=== PATIENT | female | born 1995 | race Caucasian/White ===

== ENCOUNTER 2017-09-12 12:23 | Emergency (ER) | payer BC, OTHER ==
[2017-09-12] MEDS ORDERED: NORMAL SALINE 1000 ML 2,000 ML IV ONE (13:13)
[2017-09-12] MEDS ORDERED: ONDANSETRON HCL INJ/PF 4 MG/2 ML SDV IV ONE (13:14)
--- NOTE | 2017-09-12 13:15 | ER Document Report ---
ED GI/ - General Chief Complaint: Nausea/Vomiting/Diarrhea Stated Complaint: VOMITING/FEVER Time Seen by Provider: 09/12/17 13:13 Mode of Arrival: Medic Information source: Patient Notes: 22-year-old normally thin female sent from [facility] with a diagnosis of H. pylori. She has had sudden onset nausea, vomiting and diarrhea since this morning and looks dehydrated and pale. No history of GERD or gastritis. She smokes tobacco and occasional marijuana. No alcohol. G0. Menses started today , denies . No surgeries. No history of Crohn's, colitis, celiac, anorexia, bulimia, or anemia. She does have a history of depression and self- inflicted cuts in 2011. No abdominal pain and mild nausea at this time. Zofran given at [facility]. TRAVEL OUTSIDE OF THE [place] IN LAST 30 DAYS: No - Related Data Allergies/Adverse Reactions: No Known Allergies Allergy (Verified 09/12/17 12:24) Past Medical History - General Information source: Patient - Social History Smoking Status: Never Smoker Frequency of alcohol use: None Drug Abuse: None Lives with: Family Family History: Reviewed & Not Pertinent Pulmonary Medical History: Denies: Hx Asthma Psychiatric Medical History: Reports: Hx Anxiety, Hx Depression Surgical Hx: Negative - Immunizations Immunizations up to date: Yes Hx Diphtheria, Pertussis, Tetanus Vaccination: No Review of Systems - Review of Systems Constitutional: No symptoms reported EENT: No symptoms reported Cardiovascular: No symptoms reported Respiratory: No symptoms reported Gastrointestinal: See HPI Genitourinary: No symptoms reported Female Genitourinary: No symptoms reported Musculoskeletal: No symptoms reported Skin: No symptoms reported Hematologic/Lymphatic: No symptoms reported Neurological/Psychological: No symptoms reported Physical Exam - Vital signs Vitals: Temp Pulse Resp BP Pulse Ox 97.5 F 70 20 119/84 100 09/12/17 12:34 09/12/17 12:34 09/12/17 12:34 09/12/17 12:34 09/12/17 12:34 Interpretation: Normal - General General appearance: Appears well, Alert In distress: None - HEENT Head: Normocephalic, Atraumatic Eyes: Normal Pupils: PERRL Neck: Supple - Respiratory Respiratory status: No respiratory distress Chest status: Nontender Breath sounds: Normal Chest palpation: Normal - Cardiovascular Rhythm: Regular Heart sounds: Normal auscultation Murmur: No - Abdominal Inspection: Normal Distension: No distension Bowel sounds: Normal Tenderness: Nontender Organomegaly: No organomegaly - Back Back: Normal, Nontender. No: CVA tenderness - Extremities General upper extremity: Normal inspection, Nontender, Normal color, Normal ROM , Normal temperature General lower extremity: Normal inspection, Nontender, Normal color, Normal ROM , Normal temperature, Normal weight bearing. No: Elliott's sign - Neurological Neuro grossly intact: Yes Cognition: Normal Orientation: AAOx4 Hoa Coma Scale Eye Opening: Spontaneous [place] Coma Scale Verbal: Oriented [place] Coma Scale Motor: Obeys Commands Hoa Coma Scale Total: 15 Speech: Normal Motor strength normal: LUE, RUE, LLE, RLE Sensory: Normal - Psychological Associated symptoms: Normal affect, Normal mood - Skin Skin Temperature: Warm Skin Moisture: Dry Skin Color: Normal Skin irregularity: negative: Rash Course - Re-evaluation Re-evalutation: 09/12/17 15:13 serum qual hcg is positive. quant ordered. 09/12/17 15:31 Patient states she has irregular periods this menses started 4 days late. I explained to her about the qualitative and quantitative hCG. 09/12/17 16:54 Blood type is O+, patient feels a lot better and is ready to go home she was able to eat a cracker I will give her a prescription for Reglan for nausea though for today. Consult Dr. Vishnu Alston and the patient does not need an ultrasound because she has no pelvic pain and the quant is only 14. She will come back on Friday for repeat quantitative serum test. - Vital Signs Vital signs: Temp Pulse Resp BP Pulse Ox 98.2 F 58 L 18 117/61 100 09/12/17 17:10 09/12/17 17:10 09/12/17 17:10 09/12/17 17:10 09/12/17 17:10 - Laboratory Result Diagrams: 09/12/17 13:26 09/12/17 13:26 Laboratory results interpreted by me: 09/12/17 09/12/17 09/12/17 13:26 13:26 13:26 WBC 18.0 H Seg Neutrophils % 90.5 H Lymphocytes % 5.7 L Absolute Neutrophils 16.3 H Glucose 133 H Serum HCG, Qual POSITIVE H Beta HCG, Quant Urine Protein Urine Ketones Urine Blood Ur Leukocyte Esterase 09/12/17 09/12/17 13:26 14:22 WBC Seg Neutrophils % Lymphocytes % Absolute Neutrophils Glucose Serum HCG, Qual Beta HCG, Quant 14.71 H Urine Protein 100 H Urine Ketones 80 H Urine Blood SMALL H Ur Leukocyte Esterase SMALL H Discharge - Discharge Clinical Impression: Vaginal bleeding, Vomiting and diarrhea, Early stage of Condition: Good Disposition: HOME, SELF-CARE Instructions: Bleeding During Early ([facility]), Dehydration ([facility]), Diarrhea, Nonspecific ([facility]), Intravenous (IV) Fluids ([facility]), Reglan ([facility]), Vaginal Bleeding ([facility]), Vomiting ([facility]) Additional Instructions: Continue to hydrate at home with oral fluids Crackers and advance diet as tolerated Reglan for nausea Return on Friday to the outpatient registration to get another serum quantitative test. If the quantitative test goes up from 14 you are still if it goes down you are no longer . I would wait to start the H pylori treatment until after your stomach feels better. Return to the emergency room for worsening symptoms Prescriptions: Metoclopramide HCl [Reglan 10 mg Tablet] 10 mg PO Q6HP PRN #30 tablet PRN Reason: Forms: Follow-Up Laboratory Testing
[2017-09-12] MEDS ORDERED: ONDANSETRON 4 MG TAB.RAPDIS PO ONE (13:21)
[2017-09-12] MEDS ORDERED: ONDANSETRON HCL INJ/PF 4 MG/2 ML SDV ONE (13:46)
[2017-09-12 13:51] LABS: ABSOLUTE BASOPHILS # (AUTO) 0.1 10^3/uL (0.0-0.2); ABSOLUTE MONOCYTES (AUTO) 0.6 10^3/uL (0.1-1.4); ABSOLUTE NEUT (AUTO) 16.3 10^3/uL (1.7-8.2); BASOPHILS % (AUTO) 0.3 % (0-2); HEMATOCRIT 42.7 % (36.0-47.0); HEMOGLOBIN 14.5 g/dL (12.0-15.5); LYMPHOCYTES % (AUTO) 5.7 % (13-45); MEAN CORPUSCULAR HEMOGLOBIN 29.6 pg (27.0-33.4); MEAN CORPUSCULAR HGB CONC 33.8 g/dL (32.0-36.0); MEAN CORPUSCULAR VOLUME 88 fl (80-97); MONOCYTES % (AUTO) 3.5 % (3-13); PLATELET COUNT 277 10^3/uL (150-450); RED BLOOD COUNT 4.87 10^6/uL (3.72-5.28); RED CELL DISTRIBUTION WIDTH 13.8 % (11.5-14.0); SEGMENTED NEUTROPHILS % (AUTO) 90.5 % (42-78); TOTAL CELLS COUNTED % (AUTO) 100 %
[2017-09-12 14:12] LABS: ALBUMIN 4.4 g/dL (3.5-5.0); ANION GAP 11 (5-19); ASPARTATE AMINO TRANSFERASE 26 U/L (14-36); BLOOD UREA NITROGEN 12 mg/dL (7-20); CALCIUM 10.1 mg/dL (8.4-10.2); CARBON DIOXIDE 23 mmol/L (22-30); CHLORIDE 105 mmol/L (98-107); GLUCOSE 133 mg/dL (75-110); POTASSIUM 3.8 mmol/L (3.6-5.0); SODIUM 138.5 mmol/L (137-145)
[2017-09-12 14:13] LABS: ALANINE AMINOTRANSFERASE 20 U/L (9-52); ALKALINE PHOSPHATASE 68 U/L (38-126); BILIRUBIN,DIRECT 0.4 mg/dL (0.0-0.4); BILIRUBIN,TOTAL 1.1 mg/dL (0.2-1.3); LIPASE 38.4 U/L (23-300); TOTAL PROTEIN 7.3 g/dL (6.3-8.2)
[2017-09-12] MEDS ORDERED: METOCLOPRAMIDE HCL INJ/PF 10 MG/2 ML SDV IV ONE (14:36)
[2017-09-12 14:46] LABS: APPEARANCE,URINE CLOUDY; BILIRUBIN,URINE NEGATIVE (NEGATIVE); COLOR,URINE YELLOW; GLUCOSE, URINE NEGATIVE (NEGATIVE); KETONES,URINE 80 mg/dL (NEGATIVE); LEUKOCYTE ESTERASE,URINE SMALL (NEGATIVE); NITRITE,URINE NEGATIVE (NEGATIVE); PROTEIN,URINE 100 mg/dL (NEGATIVE); URINE SPECIFIC GRAVITY 1.028; UROBILINOGEN,URINE NEGATIVE mg/dL (<2.0)
[2017-09-12 15:01] LABS: URINE AMPHETAMINES SCREEN NEGATIVE; URINE BARBITURATES SCREEN NEGATIVE; URINE BENZODIAZEPINES SCREEN NEGATIVE; URINE COCAINE SCREEN NEGATIVE; URINE MARIJUANA (THC) SCREEN UNCONFIRMED POSITIVE; URINE METHADONE SCREEN NEGATIVE; URINE PHENCYCLIDINE SCREEN NEGATIVE
[2017-09-12] MEDS ORDERED: NORMAL SALINE 1000 ML 1,000 ML IV ONE (15:02)
[2017-09-12 17:17] VITALS: BP 117/61
== END 2017-09-12 17:17 | disposition home or self-care (01) ==
LOC: ER 12:23
DX: O20.9 Hemorrhage in early pregnancy, unspecified (principal); O21.9 Vomiting of pregnancy, unspecified; O26.899 Other specified pregnancy related conditions, unspecified trimester; R19.7 Diarrhea, unspecified; Z3A.00 Weeks of gestation of pregnancy not specified
CPT/HCPCS: 99283; 96361; 96374; 96375; 86900; 86901; 36415; 87086; 84702; 83690; 84703; 85025; 80053; 81001; 80307; S0119; J2765; J2405; J7030

== ENCOUNTER → 2017-09-14 | Outpatient (CLI) | payer BC | LOC: LAB 08:00 | PROVIDERS: ATTEND Nurse Practitioner Family | DX: O20.9 Hemorrhage in early pregnancy, unspecified (principal); Z3A.00 Weeks of gestation of pregnancy not specified | CPT/HCPCS: 36415; 84702 ==

== ENCOUNTER 2017-12-07 12:29 | Emergency (ER) | payer BC ==
[2017-12-07] MEDS ORDERED: METOCLOPRAMIDE HCL INJ/PF 10 MG/2 ML SDV IM ONE (13:13)
--- NOTE | 2017-12-07 13:18 | ER Document Report ---
ED Medical Screen (RME) - General Chief Complaint: Nausea/Vomiting Stated Complaint: VOMITING Time Seen by Provider: 12/07/17 13:09 Notes: This 23-year-old female patient reports onset this morning of nausea vomiting and cold sweats. Her LMP started this morning. She states these are the same symptoms she had when she had a miscarriage in September of this year. Review of the record shows that on her visit today with the symptoms her hormone level was only 14 and 2 days later was 5. She was seen here about 6 years ago with self cutting burning self-mutilation and suicidal ideation with depression. I have greeted and performed a rapid initial assessment of this patient. A comprehensive ED assessment and evaluation of the patient, analysis of test results and completion of the medical decision making process will be conducted by additional ED providers. TRAVEL OUTSIDE OF THE [place] IN LAST 30 DAYS: No - Related Data Allergies/Adverse Reactions: No Known Allergies Allergy (Verified 12/07/17 12:33) Past Medical History - Social History Frequency of alcohol use: Rare Drug Abuse: Marijuana Pulmonary Medical History: Denies: Hx Asthma Renal/ Medical History: Denies: Hx Peritoneal Dialysis Psychiatric Medical History: Reports: Hx Anxiety, Hx Depression - Immunizations Immunizations up to date: Yes Hx Diphtheria, Pertussis, Tetanus Vaccination: No Physical Exam - Vital signs Vitals: Pulse Resp BP Pulse Ox 87 24 H 127/80 H 99 12/07/17 12:53 12/07/17 12:53 12/07/17 12:53 12/07/17 12:53 Course - Vital Signs Vital signs: Temp Pulse Resp BP Pulse Ox 87 24 H 127/80 H 99 12/07/17 12:53 12/07/17 12:53 12/07/17 12:53 12/07/17 12:53
[2017-12-07 14:17] LABS: ABSOLUTE BASOPHILS # (AUTO) 0.1 10^3/uL (0.0-0.2); ABSOLUTE EOSINOPHILS # (AUTO) 0.3 10^3/uL (0.0-0.6); ABSOLUTE LYMPHOCYTES (AUTO) 2.9 10^3/uL (0.5-4.7); ABSOLUTE MONOCYTES (AUTO) 0.9 10^3/uL (0.1-1.4); ABSOLUTE NEUT (AUTO) 13.9 10^3/uL (1.7-8.2); BASOPHILS % (AUTO) 0.8 % (0-2); EOSINOPHILS % (AUTO) 1.6 % (0-6); HEMATOCRIT 46.4 % (36.0-47.0); HEMOGLOBIN 15.4 g/dL (12.0-15.5); LYMPHOCYTES % (AUTO) 15.9 % (13-45); MEAN CORPUSCULAR HEMOGLOBIN 29.7 pg (27.0-33.4); MEAN CORPUSCULAR HGB CONC 33.2 g/dL (32.0-36.0); MEAN CORPUSCULAR VOLUME 90 fl (80-97); MONOCYTES % (AUTO) 4.9 % (3-13); PLATELET COUNT 309 10^3/uL (150-450); RED BLOOD COUNT 5.18 10^6/uL (3.72-5.28); SEGMENTED NEUTROPHILS % (AUTO) 76.8 % (42-78); TOTAL CELLS COUNTED % (AUTO) 100 %; WHITE BLOOD COUNT 18.1 10^3/uL (4.0-10.5)
[2017-12-07 14:30] LABS: ALANINE AMINOTRANSFERASE 22 U/L (9-52); ALBUMIN 4.7 g/dL (3.5-5.0); ALKALINE PHOSPHATASE 83 U/L (38-126); ANION GAP 17 (5-19); ASPARTATE AMINO TRANSFERASE 23 U/L (14-36); BILIRUBIN,DIRECT 0.2 mg/dL (0.0-0.4); BILIRUBIN,TOTAL 1.2 mg/dL (0.2-1.3); BLOOD UREA NITROGEN 11 mg/dL (7-20); CALCIUM 10.7 mg/dL (8.4-10.2); CARBON DIOXIDE 20 mmol/L (22-30); CHLORIDE 105 mmol/L (98-107); GLUCOSE 134 mg/dL (75-110); SODIUM 142.2 mmol/L (137-145); TOTAL PROTEIN 7.7 g/dL (6.3-8.2)
[2017-12-07 14:53] LABS: APPEARANCE,URINE SLIGHTLY-CLOUDY; BILIRUBIN,URINE NEGATIVE (NEGATIVE); COLOR,URINE YELLOW; GLUCOSE, URINE NEGATIVE (NEGATIVE); KETONES,URINE 80 mg/dL (NEGATIVE); LEUKOCYTE ESTERASE,URINE TRACE (NEGATIVE); NITRITE,URINE NEGATIVE (NEGATIVE); PROTEIN,URINE 30 mg/dL (NEGATIVE); URINE SPECIFIC GRAVITY 1.023; UROBILINOGEN,URINE NEGATIVE mg/dL (<2.0)
[2017-12-07] MEDS ORDERED: ONDANSETRON 4 MG TAB.RAPDIS PO ONE (15:09)
--- NOTE | 2017-12-07 15:09 | ER Document Report ---
HPI - HPI Pain Level: Denies Notes: Patient is a 22-year-old female with no significant past medical history aside from depression and anxiety who presents to the ED complaining of nausea, vomiting, and loose stool that started this morning. Patient states that she also started her period this morning. Patient states that she had similar symptoms a couple months ago and was told that she miscarried. Patient presents to the ED at a fear that this could be a miscarriage issue. Patient states that she is still able to keep some fluids down. She did get nausea medication at triage and states that overall she feels better. She denies any drug allergies. Patient has not had any pain. No recent antibiotic use. Denies any other IV drug use at this time. Denies any headache, fever, URI, sore throat, chest pain, palpitations, syncope, cough, shortness of breath, wheeze, dyspnea, abdominal pain, urinary retention, dysuria, hematuria, back pain, loss of control of bowel or bladder, numbness/tingling, muscle paralysis/ weakness, or rash. - ROS Systems Reviewed and Negative: Yes All other systems reviewed and negative - REPRODUCTIVE Reproductive: DENIES: : Past Medical History - Social History Smoking Status: Current Every Day Smoker Frequency of alcohol use: Rare Drug Abuse: Marijuana Family History: Reviewed & Not Pertinent Patient has suicidal ideation: No Patient has homicidal ideation: No Pulmonary Medical History: Denies: Hx Asthma Renal/ Medical History: Denies: Hx Peritoneal Dialysis Psychiatric Medical History: Reports: Hx Anxiety, Hx Depression - Immunizations Immunizations up to date: Yes Hx Diphtheria, Pertussis, Tetanus Vaccination: No Vertical Provider Document - CONSTITUTIONAL Agree With Documented VS: Yes Notes: PHYSICAL EXAMINATION: GENERAL: Well-appearing, well-nourished and in no acute distress. HEAD: Atraumatic, normocephalic. EYES: Pupils equal round and reactive to light, extraocular movements intact, sclera anicteric, conjunctiva are normal. ENT: Nares patent and without discharge. oropharynx clear without exudates. No tonsilar hypertrophy or erythema. Moist mucous membranes. NECK: Normal range of motion, supple without lymphadenopathy LUNGS: Breath sounds clear to auscultation bilaterally and equal. No wheezes rales or rhonchi. HEART: Regular rate and rhythm without murmurs, rubs, gallops. ABDOMEN: Soft, nontender, nondistended abdomen. No guarding, no rebound. No masses appreciated. Normal bowel sounds present. No CVA tenderness bilaterally. Marvin neg. No tenderness at McBurney point. Musculoskeletal: FROM to passive/active. Strength 5+/5. Extremities: No cyanosis, clubbing, or edema b/l. Peripheral pulses 2+. Capillary refill less than 3 seconds. NEUROLOGICAL: Normal speech, normal gait. Normal sensory, motor exams PSYCH: Normal mood, normal affect. SKIN: Warm, Dry, normal turgor, no rashes or lesions noted. - INFECTION CONTROL TRAVEL OUTSIDE OF THE [place] IN LAST 30 DAYS: No Course - Re-evaluation Re-evalutation: 12/07/17 15:06 Patient is an afebrile, well-hydrated, 22-year-old female who presents to the ED with nausea, vomiting, diarrhea, suspect viral. Vitals are acceptable. PE is otherwise unremarkable. CBC, CMP, urinalysis, hCG were unremarkable for any acute pathology. Patient's abdomen is soft and nontender. She has no tachycardia, tachypnea, or hypoxia. Patient is nontoxic-appearing. Patient is able to tolerate p.o. without any difficulties at this time. Patient was given Reglan at triage and Zofran prior to discharge. I will send her home with a prescription for Zofran. Conservative measures otherwise for symptoms. Recheck with your PCM in 1-2 days. Return to the ED with any worsening/ concerning symptoms otherwise as reviewed discharge. Patient is in agreement. - Vital Signs Vital signs: Temp Pulse Resp BP Pulse Ox 87 24 H 127/80 H 99 12/07/17 12:53 12/07/17 12:53 12/07/17 12:53 12/07/17 12:53 - Laboratory Result Diagrams: 12/07/17 13:50 12/07/17 13:50 Laboratory results interpreted by me: 12/07/17 12/07/17 12/07/17 13:50 13:50 14:22 WBC 18.1 H Absolute Neutrophils 13.9 H Carbon Dioxide 20 L Glucose 134 H Calcium 10.7 H Urine Protein 30 H Urine Ketones 80 H Urine Blood MODERATE H Ur Leukocyte Esterase TRACE H Discharge - Discharge Clinical Impression: Nausea & vomiting Qualifiers: Vomiting type: unspecified Vomiting Intractability: non-intractable Qualified Code(s): R11.2 - Nausea with vomiting, unspecified Condition: Stable Disposition: HOME, SELF-CARE Instructions: Antinausea Medication ([facility]), Vomiting ([facility]), Gastroenteritis ( adult) ([facility]) Additional Instructions: Maintain adequate fluid and food intake [place] diet ([facility] Bananas, rice, apples, toast, etc Zofran as needed tylenol if needed Monitor for any worsening symptoms Make sure you are staying hydrated enough to urinate and have normal BM's Recheck with your PCM in 1-2 days Consider consult with Gastroenterology for ongoing/worsening symptoms Return to the ED with any worsening symptoms and/or development of fever, headache, chest pain, palpitations, syncope, shortness of breath, trouble breathing, abdominal pain, n/v/d, blood in stool/urine, weakness, or other worsening symptoms that are concerning to you. Prescriptions: Ondansetron [Zofran Odt 4 mg Tablet] 1 - 2 tab PO Q4H PRN #15 tab.rapdis PRN Reason: For Nausea/Vomiting Forms: Elevated Blood Pressure, Smoking Cessation Education Referrals: DARIANA PARKS MD [ACTIVE STAFF] - Follow up as needed
[2017-12-07 15:33] VITALS: BP 114/54
== END 2017-12-07 15:34 | disposition home or self-care (01) ==
LOC: ER 12:29
DX: R11.2 Nausea with vomiting, unspecified (principal); R19.7 Diarrhea, unspecified; F17.200 Nicotine dependence, unspecified, uncomplicated
CPT/HCPCS: 99283; 96372; 36415; 84703; 85025; 80053; 81001; S0119; J2765

== ENCOUNTER 2018-06-26 13:42 | Emergency (ER) | payer BC ==
[2018-06-26] MEDS ORDERED: NORMAL SALINE 1000 ML 1,000 ML IV ONE (14:14)
[2018-06-26] MEDS ORDERED: METOCLOPRAMIDE HCL INJ/PF 10 MG/2 ML SDV IV ONE (14:14)
--- NOTE | 2018-06-26 14:15 | ER Document Report ---
ED Medical Screen (RME) - General Chief Complaint: Nausea/Vomiting Stated Complaint: VOMITTING Time Seen by Provider: 06/26/18 14:10 Notes: 23-year-old female patient reportedly 7 weeks based on LMP and positive home test. She reports she began vomiting yesterday and today it is bilious vomiting. She has not been vomiting in about a week. 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 I have greeted and performed a rapid initial assessment of this patient. A comprehensive ED assessment and evaluation of the patient, analysis of test results and completion of the medical decision making process will be conducted by additional ED providers. TRAVEL OUTSIDE OF THE [place] IN LAST 30 DAYS: No - Related Data Allergies/Adverse Reactions: No Known Allergies Allergy (Verified 12/07/17 12:33) Past Medical History - Social History Frequency of alcohol use: None Drug Abuse: Marijuana Pulmonary Medical History: Denies: Hx Asthma Renal/ Medical History: Denies: Hx Peritoneal Dialysis Psychiatric Medical History: Reports: Hx Anxiety, Hx Depression - Immunizations Immunizations up to date: Yes Hx Diphtheria, Pertussis, Tetanus Vaccination: No Physical Exam - Vital signs Vitals: Temp Pulse Resp BP Pulse Ox 97.4 F 104 H 28 H 121/76 100 06/26/18 13:49 06/26/18 13:49 06/26/18 13:49 06/26/18 13:49 06/26/18 13:49 Course - Vital Signs Vital signs: Temp Pulse Resp BP Pulse Ox 97.4 F 104 H 28 H 121/76 100 06/26/18 13:49 06/26/18 13:49 06/26/18 13:49 06/26/18 13:49 06/26/18 13:49
[2018-06-26 14:44] LABS: ABSOLUTE LYMPHOCYTES (AUTO) 1.4 10^3/uL (0.5-4.7); ABSOLUTE MONOCYTES (AUTO) 0.4 10^3/uL (0.1-1.4); ABSOLUTE NEUT (AUTO) 17.5 10^3/uL (1.7-8.2); BASOPHILS % (AUTO) 0.2 % (0-2); HEMOGLOBIN 14.8 g/dL (12.0-15.5); LYMPHOCYTES % (AUTO) 7.3 % (13-45); MEAN CORPUSCULAR HEMOGLOBIN 30.6 pg (27.0-33.4); MEAN CORPUSCULAR HGB CONC 34.5 g/dL (32.0-36.0); MEAN CORPUSCULAR VOLUME 89 fl (80-97); MONOCYTES % (AUTO) 2.3 % (3-13); PLATELET COUNT 297 10^3/uL (150-450); RED BLOOD COUNT 4.83 10^6/uL (3.72-5.28); RED CELL DISTRIBUTION WIDTH 13.4 % (11.5-14.0); SEGMENTED NEUTROPHILS % (AUTO) 90.2 % (42-78); TOTAL CELLS COUNTED % (AUTO) 100 %; WHITE BLOOD COUNT 19.4 10^3/uL (4.0-10.5)
[2018-06-26] MEDS ORDERED: NORMAL SALINE 1000 ML 500 ML IV ONE (15:02)
--- NOTE | 2018-06-26 15:04 | ER Document Report ---
ED GI/ - General Chief Complaint: Nausea/Vomiting Stated Complaint: VOMITTING Time Seen by Provider: 06/26/18 14:10 Mode of Arrival: Ambulatory Information source: Patient Notes: Patient is about 7 weeks based on last menstrual period . Patient complains of nausea vomiting diarrhea that started today. Patient states she is vomited 13 times and had diarrhea only one episode. Patient denies any fever, urinary symptoms, vaginal bleeding or discharge. Patient denies any abdominal tenderness. No recent sick contacts. Patient has yet to establish care. TRAVEL OUTSIDE OF THE [place] IN LAST 30 DAYS: No - HPI Patient complains to provider of: Diarrhea, Vomiting. No: Abdominal pain, Dysuria, Vaginal bleeding, Vaginal discharge Onset: This morning Timing/Duration: Gradual Pain Level: Denies Context: Vaginal bleeding (Compared to normal period): None Associated symptoms: Diarrhea, Nausea, Vomiting. denies: Blood in emesis, Blood in stool, Constipation, Odor, Urinary hesitancy, Urinary frequency, Urinary retention Exacerbated by: Denies Relieved by: Denies Similar symptoms previously: Yes Recently seen / treated by doctor: No - Related Data Allergies/Adverse Reactions: No Known Allergies Allergy (Verified 12/07/17 12:33) Past Medical History - General Information source: Patient Last Menstrual Period: 7 weeks - Social History Smoking Status: Never Smoker Frequency of alcohol use: None Drug Abuse: Marijuana Occupation: Retail Lives with: Family Family History: Reviewed & Not Pertinent Patient has suicidal ideation: No Patient has homicidal ideation: No Pulmonary Medical History: Denies: Hx Asthma Renal/ Medical History: Denies: Hx Peritoneal Dialysis Psychiatric Medical History: Reports: Hx Anxiety, Hx Depression Surgical Hx: Negative - Immunizations Immunizations up to date: Yes Hx Diphtheria, Pertussis, Tetanus Vaccination: No Review of Systems - Review of Systems Constitutional: No symptoms reported. denies: Fever, Recent illness EENT: No symptoms reported Cardiovascular: No symptoms reported. denies: Chest pain Gastrointestinal: Diarrhea, Nausea, Vomiting, Poor fluid intake. denies: Abdominal pain, Constipation Genitourinary: No symptoms reported. denies: Dysuria, Flank pain Female Genitourinary: . denies: Vaginal discharge, Vaginal bleeding Musculoskeletal: No symptoms reported. denies: Back pain, Muscle pain, Neck pain Skin: No symptoms reported Hematologic/Lymphatic: No symptoms reported Neurological/Psychological: No symptoms reported. denies: Headaches Physical Exam - Vital signs Vitals: Temp Pulse Resp BP Pulse Ox 97.4 F 104 H 28 H 121/76 100 06/26/18 13:49 06/26/18 13:49 06/26/18 13:49 06/26/18 13:49 06/26/18 13:49 - General General appearance: Appears well, Alert In distress: None - HEENT Head: Normocephalic, Atraumatic Eyes: Normal Conjunctiva: Normal Nasal: Normal Mouth/Lips: Normal Mucous membranes: Normal Neck: Normal, Supple. No: Lymphadenopathy - Respiratory Respiratory status: No respiratory distress Chest status: Nontender Breath sounds: Normal. No: Rales, Rhonchi, Stridor, Wheezing Chest palpation: Normal - Cardiovascular Rhythm: Regular Heart sounds: S1 appreciated, S2 appreciated Murmur: No - Abdominal Inspection: Normal Distension: No distension Bowel sounds: Normal Tenderness: Nontender. No: McBurney's point, Marvin's sign, Guarding Organomegaly: No organomegaly - Back Back: Normal, Nontender. No: CVA tenderness - Extremities General upper extremity: Normal inspection, Normal ROM General lower extremity: Normal inspection, Normal ROM - Neurological Neuro grossly intact: Yes Cognition: Normal [place] Coma Scale Eye Opening: Spontaneous [place] Coma Scale Verbal: Oriented [place] Coma Scale Motor: Obeys Commands Hoa Coma Scale Total: 15 - Psychological Associated symptoms: Normal affect, Normal mood - Skin Skin Temperature: Warm Skin Moisture: Dry Skin Color: Normal Course - Re-evaluation Re-evalutation: 06/26/18 16:13 Patient complains of continued nausea and vomited an additional episode. Patient's abdomen continues soft and nontender. Additional medication ordered. 06/26/18 17:13 Patient continues to vomit, patient abdomen continues soft nontender. Additional medications ordered. 06/26/18 17:54 Patient reports that nausea is improved after last dose of medication. Patient feels that she could manage her symptoms at home and is requesting to be discharged at this time. Patient states she has had problems with vomiting in the past with and suspects the same today. Abdomen continues soft nontender. Did discuss with patient the possibility that her daily marijuana use could be playing a role in her symptoms and patient was advised to discontinue use of the substance. - Vital Signs Vital signs: Temp Pulse Resp BP Pulse Ox 98.4 F 98 18 117/69 100 06/26/18 18:35 06/26/18 18:35 06/26/18 18:35 06/26/18 18:35 06/26/18 18:35 - Laboratory Result Diagrams: 06/26/18 14:30 06/26/18 14:30 Laboratory results interpreted by me: 06/26/18 06/26/18 06/26/18 14:30 14:30 16:00 WBC 19.4 H Seg Neutrophils % 90.2 H Lymphocytes % 7.3 L Monocytes % 2.3 L Absolute Neutrophils 17.5 H Carbon Dioxide 16 L Creatinine 0.43 L Glucose 142 H Beta HCG, Quant 59034.00 H Urine Protein 30 H Urine Glucose (UA) 50 H Urine Ketones 80 H Urine Ascorbic Acid 40 H 06/26/18 17:55 Labs- Entire Visit 06/26/18 06/26/18 06/26/18 14:30 14:30 14:30 WBC 19.4 H RBC 4.83 Hgb 14.8 Hct 43.0 MCV 89 MCH 30.6 MCHC 34.5 RDW 13.4 Plt Count 297 Seg Neutrophils % 90.2 H Lymphocytes % 7.3 L Monocytes % 2.3 L Eosinophils % 0.0 Basophils % 0.2 Absolute Neutrophils 17.5 H Absolute Lymphocytes 1.4 Absolute Monocytes 0.4 Absolute Eosinophils 0.0 Absolute Basophils 0.0 Sodium 139.9 Potassium 3.6 Chloride 105 Carbon Dioxide 16 L Anion Gap 19 BUN 9 Creatinine 0.43 L Est GFR ( Amer) > 60 Est GFR (Non-Af Amer) > 60 Glucose 142 H Calcium 9.8 Total Bilirubin 1.1 Direct Bilirubin 0.1 Neonat Total Bilirubin Not Reportable Neonat Direct Bilirubin Not Reportable Neonat Indirect Bili Not Reportable AST 19 ALT 22 Alkaline Phosphatase 70 Total Protein 7.3 Albumin 4.7 Lipase 49.4 Beta HCG, Quant 05159.00 H Total Beta HCG POSITIVE Urine Color Urine Appearance Urine pH Ur Specific [place] Urine Protein Urine Glucose (UA) Urine Ketones Urine Blood Urine Nitrite Urine Bilirubin Urine Urobilinogen Ur Leukocyte Esterase Urine WBC (Auto) Urine RBC (Auto) U Hyaline Cast (Auto) Squamous Epi Cells Auto Urine Mucus (Auto) Urine Ascorbic Acid 06/26/18 16:00 WBC RBC Hgb Hct MCV MCH MCHC RDW Plt Count Seg Neutrophils % Lymphocytes % Monocytes % Eosinophils % Basophils % Absolute Neutrophils Absolute Lymphocytes Absolute Monocytes Absolute Eosinophils Absolute Basophils Sodium Potassium Chloride Carbon Dioxide Anion Gap BUN Creatinine Est GFR ( Amer) Est GFR (Non-Af Amer) Glucose Calcium Total Bilirubin Direct Bilirubin Neonat Total Bilirubin Neonat Direct Bilirubin Neonat Indirect Bili AST ALT Alkaline Phosphatase Total Protein Albumin Lipase Beta HCG, Quant Total Beta HCG Urine Color YELLOW Urine Appearance SLIGHTLY-CLOUDY Urine pH 6.0 Ur Specific [place] 1.025 Urine Protein 30 H Urine Glucose (UA) 50 H Urine Ketones 80 H Urine Blood NEGATIVE Urine Nitrite NEGATIVE Urine Bilirubin NEGATIVE Urine Urobilinogen NEGATIVE Ur Leukocyte Esterase NEGATIVE Urine WBC (Auto) 5 Urine RBC (Auto) 1 U Hyaline Cast (Auto) 3 Squamous Epi Cells Auto 8 Urine Mucus (Auto) MANY Urine Ascorbic Acid 40 H Discharge - Discharge Clinical Impression: Nausea and vomiting during , Dehydration Condition: Stable Disposition: HOME, SELF-CARE Instructions: Antinausea Medication ([facility]), Intravenous (IV) Fluids ([facility]), Vomiting ([facility]) Additional Instructions: Return immediately for any new or worsening symptoms Followup with your primary care provider, call tomorrow to make a followup appointment Avoid use of marijuana as it has been shown to cause vomiting You may take Benadryl [id number] as directed and this may help with your nausea or vomiting symptoms. If the Benadryl does not manage your symptoms you can take Phenergan to help with nausea and vomiting. Prescriptions: Promethazine HCl [Phenergan 25 mg Tablet] 25 mg PO Q6H PRN #10 tablet PRN Reason: Forms: Return to Work Referrals: HEALTH DEPT,[facility] [NO LOCAL MD] - Follow up as needed [facility] [Provider Group] - 06/29/18
[2018-06-26 15:10] LABS: ALANINE AMINOTRANSFERASE 22 U/L (9-52); ALBUMIN 4.7 g/dL (3.5-5.0); ALKALINE PHOSPHATASE 70 U/L (38-126); ANION GAP 19 (5-19); ASPARTATE AMINO TRANSFERASE 19 U/L (14-36); BILIRUBIN,DIRECT 0.1 mg/dL (0.0-0.4); BILIRUBIN,TOTAL 1.1 mg/dL (0.2-1.3); BLOOD UREA NITROGEN 9 mg/dL (7-20); CALCIUM 9.8 mg/dL (8.4-10.2); CARBON DIOXIDE 16 mmol/L (22-30); CHLORIDE 105 mmol/L (98-107); GLUCOSE 142 mg/dL (75-110); POTASSIUM 3.6 mmol/L (3.6-5.0); SODIUM 139.9 mmol/L (137-145); TOTAL PROTEIN 7.3 g/dL (6.3-8.2)
[2018-06-26 15:35] LABS: LIPASE 49.4 U/L (23-300)
[2018-06-26] MEDS ORDERED: DIPHENHYDRAMINE HCL 50 MG/ML VIAL IV ONE (16:12)
[2018-06-26 16:32] LABS: APPEARANCE,URINE SLIGHTLY-CLOUDY; BILIRUBIN,URINE NEGATIVE (NEGATIVE); COLOR,URINE YELLOW; GLUCOSE, URINE 50 mg/dL (NEGATIVE); KETONES,URINE 80 mg/dL (NEGATIVE); LEUKOCYTE ESTERASE,URINE NEGATIVE (NEGATIVE); NITRITE,URINE NEGATIVE (NEGATIVE); PROTEIN,URINE 30 mg/dL (NEGATIVE); URINE SPECIFIC GRAVITY 1.025; UROBILINOGEN,URINE NEGATIVE mg/dL (<2.0)
[2018-06-26] MEDS ORDERED: NORMAL SALINE 1000 ML 1,000 ML IV PRN (16:41)
[2018-06-26] MEDS ORDERED: PROMETHAZINE HCL INJ 25 MG/1 ML VIAL IV ONE (17:12)
[2018-06-26 18:35] VITALS: BP 117/69
== END 2018-06-26 18:41 | disposition home or self-care (01) ==
LOC: ER 13:42
DX: O21.9 Vomiting of pregnancy, unspecified (principal); O26.891 Other specified pregnancy related conditions, first trimester; E86.0 Dehydration; R19.7 Diarrhea, unspecified; Z3A.01 Less than 8 weeks gestation of pregnancy
CPT/HCPCS: 99283; 96361; 96374; 96375; 36415; 84702; 83690; 85025; 80053; 81001; J1200; J2765; J2550; J7030

== ENCOUNTER 2018-07-27 05:47 | Emergency (ER) | payer BC ==
[2018-07-27] MEDS ORDERED: ONDANSETRON HCL INJ/PF 4 MG/2 ML SDV ONE (06:08)
[2018-07-27] MEDS ORDERED: NORMAL SALINE 1000 ML 1,000 ML IV ONE ×2 (06:15→08:19)
[2018-07-27] MEDS ORDERED: DIPHENHYDRAMINE HCL 50 MG/ML VIAL IV ONE (06:15)
--- NOTE | 2018-07-27 06:15 | ER Document Report ---
ED General - General Mode of Arrival: Ambulatory Information source: Patient TRAVEL OUTSIDE OF THE [place] IN LAST 30 DAYS: No <TERRI ALVARADO - Last Filed: 07/27/18 06:18> <SOUMYA NEWSOME - Last Filed: 07/27/18 10:57> - General Chief Complaint: OB Problem (<20wks) Stated Complaint: VOMITING Time Seen by Provider: 07/27/18 06:11 Notes: Patient is a 23 year old female, approximately 12 weeks with anxiety and depression presents to the emergency department complaining of vomiting and increased anxiety onset 4 days ago. Patient states she has been unable to hold any food down and attributes this to her increased anxiety. She states she has not been on any anxiety medications for a few years. Patient is currently following up with [facility]. (TERRI ALVARADO) - Related Data Allergies/Adverse Reactions: No Known Allergies Allergy (Verified 12/07/17 12:33) Past Medical History - General Information source: Patient - Social History Smoking Status: Former Smoker Cigarette use (# per day): No Chew tobacco use (# tins/day): No Smoking Education Provided: No Frequency of alcohol use: None Drug Abuse: None Family History: Reviewed & Not Pertinent Psychiatric Medical History: Reports: Hx Anxiety, Hx Depression - Immunizations Immunizations up to date: Yes Hx Diphtheria, Pertussis, Tetanus Vaccination: No <TERRI ALVARADO - Last Filed: 07/27/18 06:18> Review of Systems - Review of Systems Constitutional: No symptoms reported EENT: No symptoms reported Cardiovascular: No symptoms reported Respiratory: No symptoms reported Gastrointestinal: See HPI, Vomiting Genitourinary: No symptoms reported Female Genitourinary: No symptoms reported Musculoskeletal: No symptoms reported Skin: No symptoms reported Hematologic/Lymphatic: No symptoms reported Neurological/Psychological: See HPI, Anxiety -: Yes All other systems reviewed and negative <TERRI ALVARADO - Last Filed: 07/27/18 06:18> Physical Exam <TERRI ALVARADO - Last Filed: 07/27/18 06:18> - Vital signs Vitals: Temp Pulse Resp BP Pulse Ox 97.8 F 79 18 118/77 100 07/27/18 05:48 07/27/18 05:48 07/27/18 05:48 07/27/18 05:48 07/27/18 05:48 - Notes Notes: GENERAL: Alert, interacts well. No acute distress. HEAD: Normocephalic, atraumatic. EYES: Pupils equal, round, and reactive to light. Extraocular movements intact. ENT: Oral mucosa moist, tongue midline. No ketone odor. NECK: Full range of motion. Supple. Trachea midline. LUNGS: Tachypneic due to anxiety. Clear to auscultation bilaterally, no wheezes, rales, or rhonchi. No respiratory distress. HEART: Regular rate and rhythm. No murmurs, gallops, or rubs. ABDOMEN: Soft, non-tender. Non-distended. Bowel sounds present in all 4 quadrants. EXTREMITIES: Moves all 4 extremities spontaneously. NEUROLOGICAL: Alert and oriented x3. Normal speech. PSYCH: Crying. SKIN: Warm, dry, normal turgor. No rashes or lesions noted. (TERRI ALVARADO) Course - Laboratory Result Diagrams: 07/27/18 06:16 07/27/18 06:16 <SOUMYA NEWSOME - Last Filed: 07/27/18 10:57> - Re-evaluation Re-evalutation: 07/27/18 07:11 Patient states she does feel much better, but still has some nausea. He is on her second liter of IV fluids. (SOUMYA NEWSOME) - Vital Signs Vital signs: Temp Pulse Resp BP Pulse Ox 97.8 F 79 18 118/77 100 07/27/18 05:48 07/27/18 05:48 07/27/18 05:48 07/27/18 05:48 07/27/18 05:48 - Laboratory Laboratory results interpreted by me: 07/27/18 07/27/18 07/27/18 06:16 06:16 07:25 WBC 13.5 H Absolute Neutrophils 10.2 H Sodium 136.9 L Creatinine 0.51 L Total Bilirubin 1.5 H Urine Glucose (UA) >=500 H Urine Ketones 20 H Discharge <TERRI ALVARADO - Last Filed: 07/27/18 06:18> <SOUMYA NEWSOME - Last Filed: 07/27/18 10:57> - Discharge Clinical Impression: with 12 completed weeks gestation, Anxiety Nausea & vomiting Qualifiers: Vomiting type: unspecified Vomiting Intractability: non-intractable Qualified Code(s): R11.2 - Nausea with vomiting, unspecified Condition: Stable Disposition: HOME, SELF-CARE Additional Instructions: Hyperemesis Gravidarum Hyperemesis gravidarum is the medical term for severe vomiting during . We don't know exactly why it occurs, but it's a common problem. Dehydration can occur. This reduces blood flow to the placenta, decreasing the baby's nourishment. The baby will also become dehydrated. There can be harmful changes in blood sodium, potassium, or acid balance. Our goal is to correct, and prevent, dehydration. For severe cases, we give IV fluids. Antinausea medication will be prescribed. (Don't be concerned about " defects" -- the risk to you and your baby from the hyperemesis is the biggest problem. The antinausea medication is very safe at this stage of .) Call the doctor if you have vaginal bleeding, abdominal pain, severe lightheadedness or weakness, or other alarming symptoms. Take medication as prescribed for nausea if needed. Drink small sips of cool clear fluids throughout the day. Follow-up with your [facility] doctor on Friday if not improving. RETURN TO THE EMERGENCY ROOM IF ANY NEW OR WORSENING SYMPTOMS. Prescriptions: Promethazine HCl [Phenergan 25 mg Tablet] 25 mg PO ASDIR PRN #20 tablet PRN Reason: Referrals: [facility] [Provider Group] - Follow up as needed Scribe Attestation: 07/27/18 07:12 I personally performed the services described in the documentation, reviewed and edited the documentation which was dictated to the scribe in my presence, and it accurately records my words and actions. (SOUMYA NEWSOME) Scribe Documentation - Scribe Written by Scribe:: Joe Delgadillo, 07/27/2018 06:23 acting as scribe for :: Tyson <TERRI ALVARADO - Last Filed: 07/27/18 06:18>
[2018-07-27 06:25] LABS: ABSOLUTE EOSINOPHILS # (AUTO) 0.1 10^3/uL (0.0-0.6); ABSOLUTE LYMPHOCYTES (AUTO) 2.3 10^3/uL (0.5-4.7); ABSOLUTE NEUT (AUTO) 10.2 10^3/uL (1.7-8.2); BASOPHILS % (AUTO) 0.2 % (0-2); EOSINOPHILS % (AUTO) 0.6 % (0-6); HEMATOCRIT 41.1 % (36.0-47.0); HEMOGLOBIN 14.4 g/dL (12.0-15.5); LYMPHOCYTES % (AUTO) 16.9 % (13-45); MEAN CORPUSCULAR HEMOGLOBIN 31.2 pg (27.0-33.4); MEAN CORPUSCULAR VOLUME 89 fl (80-97); MONOCYTES % (AUTO) 7.1 % (3-13); PLATELET COUNT 274 10^3/uL (150-450); RED BLOOD COUNT 4.62 10^6/uL (3.72-5.28); RED CELL DISTRIBUTION WIDTH 13.5 % (11.5-14.0); SEGMENTED NEUTROPHILS % (AUTO) 75.2 % (42-78); TOTAL CELLS COUNTED % (AUTO) 100 %; WHITE BLOOD COUNT 13.5 10^3/uL (4.0-10.5)
[2018-07-27 06:38] LABS: ALANINE AMINOTRANSFERASE 32 U/L (9-52); ALBUMIN 4.2 g/dL (3.5-5.0); ALKALINE PHOSPHATASE 56 U/L (38-126); ANION GAP 12 (5-19); ASPARTATE AMINO TRANSFERASE 23 U/L (14-36); BILIRUBIN,DIRECT 0.1 mg/dL (0.0-0.4); BILIRUBIN,TOTAL 1.5 mg/dL (0.2-1.3); BLOOD UREA NITROGEN 13 mg/dL (7-20); CALCIUM 9.8 mg/dL (8.4-10.2); CARBON DIOXIDE 24 mmol/L (22-30); CHLORIDE 101 mmol/L (98-107); GLUCOSE 101 mg/dL (75-110); POTASSIUM 4.3 mmol/L (3.6-5.0); SODIUM 136.9 mmol/L (137-145); TOTAL PROTEIN 6.8 g/dL (6.3-8.2)
[2018-07-27] MEDS ORDERED: DEXTROSE 5%-LACTATED RINGERS 1,000 ML IV ONE (06:50)
[2018-07-27] MEDS ORDERED: METOCLOPRAMIDE HCL INJ/PF 10 MG/2 ML SDV IV ONE (07:10)
[2018-07-27 07:43] LABS: AMORPHOUS SEDIMENT,URINE 1+ /HPF; APPEARANCE,URINE CLOUDY; BILIRUBIN,URINE NEGATIVE (NEGATIVE); COLOR,URINE YELLOW; GLUCOSE, URINE >=500 mg/dL (NEGATIVE); KETONES,URINE 20 mg/dL (NEGATIVE); LEUKOCYTE ESTERASE,URINE NEGATIVE (NEGATIVE); NITRITE,URINE NEGATIVE (NEGATIVE); PROTEIN,URINE NEGATIVE (NEGATIVE); URINE SPECIFIC GRAVITY 1.013; UROBILINOGEN,URINE NEGATIVE mg/dL (<2.0)
[2018-07-27] MEDS ORDERED: LORAZEPAM INJ 2 MG/1 ML VIAL IV ONE (08:19)
[2018-07-27 11:20] VITALS: BP 118/78
== END 2018-07-27 11:20 | disposition home or self-care (01) ==
LOC: ER 05:47
DX: O21.0 Mild hyperemesis gravidarum (principal); O99.341 Other mental disorders complicating pregnancy, first trimester; F41.9 Anxiety disorder, unspecified; F32.9 Major depressive disorder, single episode, unspecified; Z3A.12 12 weeks gestation of pregnancy
CPT/HCPCS: 99284; 96361; 96374; 96375; 36415; 83735; 85025; 80053; 81001; J1200; J2765; J2060; J2405; J7030

== ENCOUNTER 2018-08-15 16:29 | Emergency (ER) | payer BC ==
[2018-08-15] MEDS ORDERED: NORMAL SALINE 1000 ML 1,000 ML IV ONE (16:51)
[2018-08-15] MEDS ORDERED: DIPHENHYDRAMINE HCL 50 MG/ML VIAL IV ONE (16:52)
[2018-08-15] MEDS ORDERED: METOCLOPRAMIDE HCL INJ/PF 10 MG/2 ML SDV IV ONE (16:52)
--- NOTE | 2018-08-15 16:53 | ER Document Report ---
ED Medical Screen (RME) - General Chief Complaint: Vomiting Stated Complaint: ABDOMINAL PAIN,VOMITING Time Seen by Provider: 08/15/18 16:47 Notes: 23-year-old patient is about 15 weeks with nausea vomiting for 2 days. She was here 3 weeks ago for similar nausea vomiting and severe anxiety. That time she felt her anxiety was provoking the vomiting, but she does have a history of hyperemesis gravidarum. She is been reasonably well-controlled since that visit until now. She had been trying Zofran, but it is not helping for the last few days. I have greeted and performed a rapid initial assessment of this patient. A comprehensive ED assessment and evaluation of the patient, analysis of test results and completion of the medical decision making process will be conducted by additional ED providers. TRAVEL OUTSIDE OF THE [place] IN LAST 30 DAYS: No - Related Data Allergies/Adverse Reactions: No Known Allergies Allergy (Verified 08/15/18 16:29) Past Medical History Pulmonary Medical History: Denies: Hx Asthma Renal/ Medical History: Denies: Hx Peritoneal Dialysis Psychiatric Medical History: Reports: Hx Anxiety, Hx Depression - Immunizations Immunizations up to date: Yes Hx Diphtheria, Pertussis, Tetanus Vaccination: No Physical Exam - Vital signs Vitals: Temp Pulse Resp BP Pulse Ox 98.0 F 103 H 20 143/93 H 97 08/15/18 16:33 08/15/18 16:33 08/15/18 16:33 08/15/18 16:33 08/15/18 16:33 Course - Vital Signs Vital signs: Temp Pulse Resp BP Pulse Ox 98.0 F 103 H 20 143/93 H 97 08/15/18 16:33 08/15/18 16:33 08/15/18 16:33 08/15/18 16:33 08/15/18 16:33
[2018-08-15 17:35] LABS: ABSOLUTE LYMPHOCYTES (AUTO) 1.8 10^3/uL (0.5-4.7); ABSOLUTE MONOCYTES (AUTO) 0.6 10^3/uL (0.1-1.4); ABSOLUTE NEUT (AUTO) 15.9 10^3/uL (1.7-8.2); BASOPHILS % (AUTO) 0.2 % (0-2); EOSINOPHILS % (AUTO) 0.1 % (0-6); HEMOGLOBIN 14.3 g/dL (12.0-15.5); LYMPHOCYTES % (AUTO) 9.9 % (13-45); MEAN CORPUSCULAR HEMOGLOBIN 30.8 pg (27.0-33.4); MEAN CORPUSCULAR HGB CONC 34.8 g/dL (32.0-36.0); MEAN CORPUSCULAR VOLUME 89 fl (80-97); MONOCYTES % (AUTO) 3.2 % (3-13); PLATELET COUNT 285 10^3/uL (150-450); RED BLOOD COUNT 4.63 10^6/uL (3.72-5.28); RED CELL DISTRIBUTION WIDTH 13.2 % (11.5-14.0); SEGMENTED NEUTROPHILS % (AUTO) 86.6 % (42-78); TOTAL CELLS COUNTED % (AUTO) 100 %; WHITE BLOOD COUNT 18.4 10^3/uL (4.0-10.5)
[2018-08-15 18:33] LABS: ALANINE AMINOTRANSFERASE 23 U/L (9-52); ALBUMIN 4.5 g/dL (3.5-5.0); ALKALINE PHOSPHATASE 60 U/L (38-126); ANION GAP 13 (5-19); ASPARTATE AMINO TRANSFERASE 21 U/L (14-36); BILIRUBIN,DIRECT 0.2 mg/dL (0.0-0.4); BILIRUBIN,TOTAL 0.7 mg/dL (0.2-1.3); BLOOD UREA NITROGEN 10 mg/dL (7-20); CALCIUM 10.4 mg/dL (8.4-10.2); CARBON DIOXIDE 20 mmol/L (22-30); CHLORIDE 105 mmol/L (98-107); GLUCOSE 113 mg/dL (75-110); POTASSIUM 3.9 mmol/L (3.6-5.0); SODIUM 137.7 mmol/L (137-145); TOTAL PROTEIN 7.4 g/dL (6.3-8.2)
[2018-08-15] MEDS ORDERED: PROMETHAZINE HCL INJ 25 MG/1 ML VIAL IV ONE (18:43)
--- NOTE | 2018-08-15 18:44 | ER Document Report ---
ED GI/ - General Chief Complaint: Vomiting Stated Complaint: ABDOMINAL PAIN,VOMITING Time Seen by Provider: 08/15/18 16:47 Mode of Arrival: Ambulatory Information source: Patient Notes: Patient presents 15 weeks . Patient complains of nausea and vomiting that started yesterday. Patient states she is vomited 7 times today. Patient denies any diarrhea. Patient denies any urinary symptoms or abdominal tenderness. Patient denies any vaginal bleeding or discharge. Patient does acknowledge smoking marijuana daily. TRAVEL OUTSIDE OF THE [place] IN LAST 30 DAYS: No - HPI Patient complains to provider of: , Vomiting. No: Abdominal pain Onset: Yesterday Timing/Duration: Persistent Quality of pain: No pain Pain Level: Denies Menstrual period history: Sexual history: Active Associated symptoms: Nausea, Vomiting. denies: Diarrhea, Dysuria, Fever, Urinary hesitancy, Urinary frequency, Urinary retention, Urinary urgency, Vaginal discharge Exacerbated by: Denies Relieved by: Denies - Related Data Allergies/Adverse Reactions: No Known Allergies Allergy (Verified 08/15/18 16:29) Past Medical History - General Information source: Patient - Social History Smoking Status: Never Smoker Frequency of alcohol use: None Drug Abuse: Marijuana Occupation: [employer] Lives with: Spouse/Significant other Family History: Reviewed & Not Pertinent Patient has suicidal ideation: No Patient has homicidal ideation: No Pulmonary Medical History: Denies: Hx Asthma Renal/ Medical History: Denies: Hx Peritoneal Dialysis Psychiatric Medical History: Reports: Hx Anxiety, Hx Depression Surgical Hx: Negative - Immunizations Immunizations up to date: Yes Hx Diphtheria, Pertussis, Tetanus Vaccination: No Review of Systems - Review of Systems Constitutional: No symptoms reported. denies: Fever, Recent illness EENT: No symptoms reported Cardiovascular: No symptoms reported Respiratory: No symptoms reported Gastrointestinal: Nausea, Vomiting. denies: Abdominal pain, Diarrhea Genitourinary: No symptoms reported. denies: Dysuria, Discharge, Flank pain Female Genitourinary: . denies: Vaginal discharge, Vaginal bleeding Musculoskeletal: No symptoms reported. denies: Back pain Skin: No symptoms reported Hematologic/Lymphatic: No symptoms reported Neurological/Psychological: No symptoms reported Physical Exam - Vital signs Vitals: Temp Pulse Resp BP Pulse Ox 98.0 F 103 H 20 143/93 H 97 08/15/18 16:33 08/15/18 16:33 08/15/18 16:33 08/15/18 16:33 08/15/18 16:33 - General General appearance: Alert In distress: Mild - HEENT Head: Normocephalic, Atraumatic Eyes: Normal Conjunctiva: Normal Nasal: Normal Mouth/Lips: Normal Mucous membranes: Normal Neck: Normal, Supple. No: Lymphadenopathy - Respiratory Respiratory status: No respiratory distress Chest status: Nontender Breath sounds: Normal Chest palpation: Normal - Cardiovascular Rhythm: Regular Heart sounds: S1 appreciated, S2 appreciated Murmur: No - Abdominal Inspection: Normal Distension: No distension Bowel sounds: Normal Tenderness: Nontender Organomegaly: No organomegaly - Back Back: Normal, Nontender. No: CVA tenderness - Extremities General upper extremity: Normal inspection, Normal ROM General lower extremity: Normal inspection, Normal ROM - Neurological Neuro grossly intact: Yes Cognition: Normal [place] Coma Scale Eye Opening: Spontaneous [place] Coma Scale Verbal: Oriented [place] Coma Scale Motor: Obeys Commands [place] Coma Scale Total: 15 - Psychological Associated symptoms: Normal affect, Normal mood - Skin Skin Temperature: Warm Skin Moisture: Dry Skin Color: Pale Course - Re-evaluation Re-evalutation: 08/15/18 20:11 Patient reports feeling better, no additional vomiting. Discussed with patient at length importance of avoiding any marijuana use as this could be contributing to her problems with recurrent vomiting. Patient encouraged to follow-up with her [facility] for recheck. Abdomen continues soft nontender. - Vital Signs Vital signs: Temp Pulse Resp BP Pulse Ox 98.4 F 111 H 20 125/70 100 08/15/18 20:53 08/15/18 20:53 08/15/18 16:33 08/15/18 20:53 08/15/18 20:53 - Laboratory Result Diagrams: 08/15/18 17:23 08/15/18 17:23 Laboratory results interpreted by me: 08/15/18 08/15/18 08/15/18 17:23 17:23 17:23 WBC 18.4 H Seg Neutrophils % 86.6 H Lymphocytes % 9.9 L Absolute Neutrophils 15.9 H Carbon Dioxide 20 L Creatinine 0.43 L Glucose 113 H Calcium 10.4 H Urine Protein 100 H Urine Ketones 80 H Urine Ascorbic Acid 40 H 08/15/18 20:12 Labs- Entire Visit 08/15/18 08/15/18 08/15/18 17:23 17:23 17:23 WBC 18.4 H RBC 4.63 Hgb 14.3 Hct 41.0 MCV 89 MCH 30.8 MCHC 34.8 RDW 13.2 Plt Count 285 Seg Neutrophils % 86.6 H Lymphocytes % 9.9 L Monocytes % 3.2 Eosinophils % 0.1 Basophils % 0.2 Absolute Neutrophils 15.9 H Absolute Lymphocytes 1.8 Absolute Monocytes 0.6 Absolute Eosinophils 0.0 Absolute Basophils 0.0 Sodium 137.7 Potassium 3.9 Chloride 105 Carbon Dioxide 20 L Anion Gap 13 BUN 10 Creatinine 0.43 L Est GFR ( Amer) > 60 Est GFR (Non-Af Amer) > 60 Glucose 113 H Calcium 10.4 H Total Bilirubin 0.7 Direct Bilirubin 0.2 Neonat Total Bilirubin Not Reportable Neonat Direct Bilirubin Not Reportable Neonat Indirect Bili Not Reportable AST 21 ALT 23 Alkaline Phosphatase 60 Total Protein 7.4 Albumin 4.5 Lipase 53.7 Urine Color Urine Appearance Urine pH Ur Specific [place] Urine Protein Urine Glucose (UA) Urine Ketones Urine Blood Urine Nitrite Urine Bilirubin Urine Urobilinogen Ur Leukocyte Esterase Urine WBC (Auto) Urine RBC (Auto) Urine Bacteria (Auto) Squamous Epi Cells Auto Urine Mucus (Auto) Urine Ascorbic Acid Urine Opiates Screen Urine Methadone Screen Ur Barbiturates Screen Ur Phencyclidine Scrn Ur Amphetamines Screen U Benzodiazepines Scrn Urine Cocaine Screen U Marijuana (THC) Screen 08/15/18 08/15/18 17:23 17:23 WBC RBC Hgb Hct MCV MCH MCHC RDW Plt Count Seg Neutrophils % Lymphocytes % Monocytes % Eosinophils % Basophils % Absolute Neutrophils Absolute Lymphocytes Absolute Monocytes Absolute Eosinophils Absolute Basophils Sodium Potassium Chloride Carbon Dioxide Anion Gap BUN Creatinine Est GFR ( Amer) Est GFR (Non-Af Amer) Glucose Calcium Total Bilirubin Direct Bilirubin Neonat Total Bilirubin Neonat Direct Bilirubin Neonat Indirect Bili AST ALT Alkaline Phosphatase Total Protein Albumin Lipase Urine Color LOGAN Urine Appearance CLOUDY Urine pH 6.0 Ur Specific [place] 1.029 Urine Protein 100 H Urine Glucose (UA) NEGATIVE Urine Ketones 80 H Urine Blood NEGATIVE Urine Nitrite NEGATIVE Urine Bilirubin NEGATIVE Urine Urobilinogen NEGATIVE Ur Leukocyte Esterase NEGATIVE Urine WBC (Auto) 3 Urine RBC (Auto) 1 Urine Bacteria (Auto) TRACE Squamous Epi Cells Auto 10 Urine Mucus (Auto) MANY Urine Ascorbic Acid 40 H Urine Opiates Screen NEGATIVE Urine Methadone Screen NEGATIVE Ur Barbiturates Screen NEGATIVE Ur Phencyclidine Scrn NEGATIVE Ur Amphetamines Screen NEGATIVE U Benzodiazepines Scrn NEGATIVE Urine Cocaine Screen NEGATIVE U Marijuana (THC) Screen UNCONFIRMED POSITIVE Discharge - Discharge Clinical Impression: Hyperemesis, Marijuana abuse Qualifiers: Weeks of gestation: 15 weeks Qualified Code(s): Z3A.15 - 15 weeks gestation of Condition: Stable Disposition: HOME, SELF-CARE Instructions: Antinausea Medication ([facility]), Hyperemesis Gravidarum ([facility]), Intravenous (IV) Fluids ([facility]), Vomiting ([facility]) Additional Instructions: Return immediately for any new or worsening symptoms Followup with your primary care provider, call tomorrow to make a followup appointment Prescriptions: Promethazine HCl [Phenergan 25 mg Tablet] 25 mg PO Q6H PRN #12 tablet PRN Reason: Referrals: [facility] [Provider Group] - Follow up as needed
[2018-08-15 18:58] LABS: LIPASE 53.7 U/L (23-300)
[2018-08-15 19:08] LABS: URINE AMPHETAMINES SCREEN NEGATIVE; URINE BARBITURATES SCREEN NEGATIVE; URINE BENZODIAZEPINES SCREEN NEGATIVE; URINE COCAINE SCREEN NEGATIVE; URINE MARIJUANA (THC) SCREEN UNCONFIRMED POSITIVE; URINE METHADONE SCREEN NEGATIVE; URINE PHENCYCLIDINE SCREEN NEGATIVE
[2018-08-15 19:15] LABS: APPEARANCE,URINE CLOUDY; BILIRUBIN,URINE NEGATIVE (NEGATIVE); COLOR,URINE AMBER; GLUCOSE, URINE NEGATIVE (NEGATIVE); KETONES,URINE 80 mg/dL (NEGATIVE); LEUKOCYTE ESTERASE,URINE NEGATIVE (NEGATIVE); NITRITE,URINE NEGATIVE (NEGATIVE); PROTEIN,URINE 100 mg/dL (NEGATIVE); URINE SPECIFIC GRAVITY 1.029; UROBILINOGEN,URINE NEGATIVE mg/dL (<2.0)
[2018-08-15] MEDS ORDERED: RINGERS SOLUTION,LACTATED 1,000 ML IV ONE (19:25)
[2018-08-15 21:00] VITALS: BP 125/70
== END 2018-08-15 21:01 | disposition home or self-care (01) ==
LOC: ER 16:29
DX: O21.0 Mild hyperemesis gravidarum (principal); F12.10 Cannabis abuse, uncomplicated; Z3A.15 15 weeks gestation of pregnancy
CPT/HCPCS: 99283; 96361; 96374; 96375; 36415; 83690; 85025; 80053; 81001; 80307; J1200; J2765; J2550; J7030; J7120

== ENCOUNTER 2018-08-16 22:27 | Inpatient (IN) | payer BC ==
[2018-08-16] MEDS ORDERED: NORMAL SALINE 1000 ML 1,000 ML IV ONE (22:42)
[2018-08-16] MEDS ORDERED: ONDANSETRON HCL INJ/PF 4 MG/2 ML SDV IV ONE (22:42)
[2018-08-16 23:00] LABS: ABSOLUTE LYMPHOCYTES (AUTO) 1.9 10^3/uL (0.5-4.7); ABSOLUTE MONOCYTES (AUTO) 1.2 10^3/uL (0.1-1.4); BASOPHILS % (AUTO) 0.2 % (0-2); EOSINOPHILS % (AUTO) 0.1 % (0-6); HEMATOCRIT 39.7 % (36.0-47.0); LYMPHOCYTES % (AUTO) 10.5 % (13-45); MEAN CORPUSCULAR HEMOGLOBIN 31.1 pg (27.0-33.4); MEAN CORPUSCULAR HGB CONC 35.1 g/dL (32.0-36.0); MEAN CORPUSCULAR VOLUME 88 fl (80-97); MONOCYTES % (AUTO) 6.4 % (3-13); PLATELET COUNT 272 10^3/uL (150-450); RED BLOOD COUNT 4.49 10^6/uL (3.72-5.28); RED CELL DISTRIBUTION WIDTH 13.4 % (11.5-14.0); SEGMENTED NEUTROPHILS % (AUTO) 82.8 % (42-78); TOTAL CELLS COUNTED % (AUTO) 100 %; WHITE BLOOD COUNT 18.1 10^3/uL (4.0-10.5)
[2018-08-16 23:18] LABS: ALANINE AMINOTRANSFERASE 29 U/L (9-52); ALBUMIN 4.5 g/dL (3.5-5.0); ALKALINE PHOSPHATASE 59 U/L (38-126); ANION GAP 10 (5-19); ASPARTATE AMINO TRANSFERASE 19 U/L (14-36); BILIRUBIN,DIRECT 0.1 mg/dL (0.0-0.4); BILIRUBIN,TOTAL 0.8 mg/dL (0.2-1.3); BLOOD UREA NITROGEN 12 mg/dL (7-20); CALCIUM 10.1 mg/dL (8.4-10.2); CARBON DIOXIDE 20 mmol/L (22-30); CHLORIDE 106 mmol/L (98-107); GLUCOSE 107 mg/dL (75-110); POTASSIUM 3.8 mmol/L (3.6-5.0); SODIUM 136.4 mmol/L (137-145); TOTAL PROTEIN 6.9 g/dL (6.3-8.2)
[2018-08-16] MEDS ORDERED: METOCLOPRAMIDE HCL INJ/PF 10 MG/2 ML SDV IV ONE (23:36)
--- NOTE | 2018-08-16 23:39 | ER Document Report ---
ED General - General Chief Complaint: Nausea/Vomiting Stated Complaint: VOMITING Time Seen by Provider: 08/16/18 23:30 Notes: Patient is a 23-year-old female presents with complaint of intractable vomiting. No abdominal pain. She is currently 15 weeks . No abnormal vaginal discharge or bleeding. No fevers. No social abdominal pain. This is her second . First ended in miscarriage at 8 weeks. She has had some issues with recurrent vomiting. She says that this sometimes occurs even when she is not but since becoming become very frequent. She does have history of marijuana use. She was seen in the hospital yesterday. She denies any marijuana use in the last 48 hours. Yesterday she was treated and discharged home with Phenergan. She has both Zofran and Phenergan at home and start vomiting again tonight and was unable to hold on the medications and therefore came to the ER. No dysuria. No other complaints at this time. TRAVEL OUTSIDE OF THE [place] IN LAST 30 DAYS: No - Related Data Allergies/Adverse Reactions: No Known Allergies Allergy (Verified 08/15/18 16:29) Past Medical History - Social History Smoking Status: Never Smoker Chew tobacco use (# tins/day): No Frequency of alcohol use: None Family History: Reviewed & Not Pertinent Patient has suicidal ideation: No Patient has homicidal ideation: No Pulmonary Medical History: Denies: Hx Asthma Renal/ Medical History: Denies: Hx Peritoneal Dialysis Psychiatric Medical History: Reports: Hx Anxiety, Hx Depression - Immunizations Immunizations up to date: Yes Hx Diphtheria, Pertussis, Tetanus Vaccination: No Review of Systems - Review of Systems Notes: My Normal Review Basic REVIEW OF SYSTEMS: CONSTITUTIONAL : Denies fever, chills, or sweats. Denies recent illness. EENT: Denies eye, ear, throat, or mouth pain or symptoms. Denies nasal or sinus congestion. RESPIRATORY: Denies cough, cold, or chest congestion. Denies shortness of b reath, difficulty breathing, or wheezing. GASTROINTESTINAL: Denies abdominal pain. Vomiting GENITOURINARY: Denies difficulty urinating, painful urination, burning, frequency, or blood in urine. FEMALE GENITOURINARY: 15 weeks . MUSCULOSKELETAL: Denies neck or back pain or joint pain or swelling. SKIN: Denies rash or skin lesions. NEUROLOGICAL: Denies altered mental status or loss of consciousness. Denies headache. Denies weakness or paralysis or loss of use of either side. Denies problems with gait or speech. Denies sensory or motor loss. PSYCHIATRIC: Some history of anxiety. ALL OTHER SYSTEMS REVIEWED AND NEGATIVE. Physical Exam - Vital signs Vitals: Temp Pulse Resp BP Pulse Ox 98.1 F 111 H 20 129/85 H 99 08/16/18 22:53 08/16/18 22:53 08/16/18 22:53 08/16/18 22:53 08/16/18 22:53 - Notes Notes: General Appearance: Well nourished, alert, cooperative, no acute distress, no obvious discomfort. Eyes sunken. Very thin. Dry mucous membranes. Dehydrated appearing. Vitals: reviewed, See vital signs table. Head: no swelling or tenderness to the head Eyes: PERRL, EOMI, Conjuctiva clear Mouth: Dry mucous membranes Throat: No tonsillar inflammation, No airway obstruction Lungs: No wheezing, No rales, No rhonci, No accessory muscle use, good air exchange bilaterally. Heart: Normal rate, Regular rythm, No murmur, no rub Abdomen: Normal BS, soft, No rigidity, No abdominal tenderness, No guarding, no rebound, no abdominal masses, no organomegaly Extremities: strength 5/5 in all extremities, good pulses in all extremities, no swelling or tenderness in the extremities, no edema. Skin: warm, dry, appropriate color, no rash Neuro: speech clear, oriented x 3, normal affect, responds appropriately to questions. Course - Re-evaluation Re-evalutation: 08/17/18 01:08 On reevaluation patient still feeling nauseous. She has not vomited any further but says she still feels sick in her stomach and still has not urinated despite a liter of fluids. Have ordered a second liter of fluids. Have ordered some Phenergan. 08/17/18 02:12 Patient finally urinated after receiving second liter of fluids. Said nausea is starting to improve. Still concerned as the patient has already failed outpatient therapy. She is received 3 different IV nausea medications before she was able to fully stop vomiting and have improvement of her nausea. Clinically he has significant dehydration being that it took 2 L of IV fluids before she was able to urinate, her eyes are sunken in, she has dry mucous membranes, she is tachycardic. I feel it is appropriate to admit her for obse rvation and continued rehydration. I did speak with Dr. park who recommends giving her 4 mg of IV Decadron and she will evaluate the patient for admission. Dictation of this chart was performed using voice recognition software; therefore, there may be some unintended grammatical errors. 08/17/18 02:14 - Vital Signs Vital signs: Temp Pulse Resp BP Pulse Ox 98.1 F 111 H 20 129/85 H 99 08/16/18 22:53 08/16/18 22:53 08/16/18 22:53 08/16/18 22:53 08/16/18 22:53 - Laboratory Result Diagrams: 08/16/18 22:50 08/16/18 22:50 Laboratory results interpreted by me: 08/16/18 08/16/18 08/17/18 22:50 22:50 01:15 WBC 18.1 H Seg Neutrophils % 82.8 H Lymphocytes % 10.5 L Absolute Neutrophils 15.0 H Sodium 136.4 L Carbon Dioxide 20 L Creatinine 0.41 L Urine Protein 30 H Urine Ketones 80 H Urine Ascorbic Acid 40 H Procedures - Ultrasound/Bedside Ultrasound/Bedside Notes: 08/17/18 02:14 Transabdominal OB ultrasound performed by me. Transabdominal ultrasound shows IUP with normal movement and heart rate of 168 bpm. Discharge - Discharge Clinical Impression: Hyperemesis Qualifiers: Weeks of gestation: 15 weeks Qualified Code(s): Z3A.15 - 15 weeks gestation of Condition: Stable Disposition: ADMITTED OBSERVATION Admitting Provider: [facility] Admitted: Labor and Delivery
[2018-08-17] MEDS ORDERED: PROMETHAZINE HCL INJ 25 MG/1 ML VIAL IM ONE (01:07)
[2018-08-17] MEDS ORDERED: RINGERS SOLUTION,LACTATED 1,000 ML IV ONE (01:08)
[2018-08-17 01:43] LABS: APPEARANCE,URINE SLIGHTLY-CLOUDY; BILIRUBIN,URINE NEGATIVE (NEGATIVE); COLOR,URINE YELLOW; GLUCOSE, URINE NEGATIVE (NEGATIVE); KETONES,URINE 80 mg/dL (NEGATIVE); LEUKOCYTE ESTERASE,URINE NEGATIVE (NEGATIVE); NITRITE,URINE NEGATIVE (NEGATIVE); PROTEIN,URINE 30 mg/dL (NEGATIVE); URINE SPECIFIC GRAVITY 1.029; UROBILINOGEN,URINE NEGATIVE mg/dL (<2.0)
[2018-08-17] MEDS ORDERED: DEXAMETHASONE SOD PHOSPHATE INJ 4 MG/1 ML VIAL IV ONE (02:07)
--- NOTE | 2018-08-17 03:53 | PDOC H&P ---
History of Present Illness Admission Date/PCP: 08/17/18 02:19 Patient complains of: "I cannot keep anything down" History of Present Illness: LOGAN RAMOS is a 23 year old with an intrauterine at 15 weeks, presented to [facility] ED complaining of persistent nausea and vomiting. Patient states that this is her fourth visit to the emergency department. Patient states that she has lost a lot of weight. She cannot keep liquids or any food down. She stated that she had some prepregnancy emesis secondary to anxiety. Patient stated that since she has been her anxiety has increased. She has history of her first trimester loss, which has made her more anxious also. She has been using Phenergan tablets and cannot keep those down. Patient denies fever/chills Past Medical History LMP: May 04, 2018 Menses: Regular Gynecological Infection: Yes 1 Spontaneous Year: Weeks: 8 Pulmonary Medical History: Denies: Asthma Psychiatric Medical History: Reports: Depression Past Surgical History Past Surgical History: Reports: None Social History Lives with: Spouse/Significant other Smoking Status: Former Smoker Drugs: None - Advance Directive Resuscitation Status: Full Code Family History Family History: Reviewed & Not Pertinent Parental Family History Reviewed: No Children Family History Reviewed: NA Sibling(s) Family History Reviewed.: NA Medication/Allergy Home Medications: Metoclopramide HCl [Reglan 10 mg Tablet] 10 mg PO Q6HP PRN #30 tablet 09/12/17 Ondansetron [Zofran Odt 4 mg Tablet] 1 - 2 tab PO Q4H PRN #15 tab.rapdis 12/07/17 Promethazine HCl [Phenergan 25 mg Tablet] 25 mg PO Q6H PRN #10 tablet 06/26/18 Promethazine HCl [Phenergan 25 mg Tablet] 25 mg PO ASDIR PRN #20 tablet 07/27/18 Promethazine HCl [Phenergan 25 mg Tablet] 25 mg PO Q6H PRN #12 tablet 08/15/18 Allergies/Adverse Reactions: No Known Allergies Allergy (Verified 08/15/18 16:29) Physical Exam - Physical Exam Vital Signs: Temp Pulse Resp BP Pulse Ox 98.4 F 100 17 128/70 H 100 08/17/18 02:09 08/17/18 02:09 08/17/18 02:09 08/17/18 02:09 08/17/18 02:09 Intake & Output 08/15/18 08/16/18 08/17/18 06:59 06:59 06:59 Intake Total 1999 Balance 1999 Weight 49.5 kg General appearance: PRESENT: no acute distress Respiratory exam: PRESENT: clear to auscultation johnathon Cardiovascular exam: PRESENT: RRR, tachycardia GI/Abdominal exam: PRESENT: normal bowel sounds, soft Extremities exam: ABSENT: calf tenderness, clubbing, full ROM, joint swelling, pedal edema, tenderness, +1 edema, +2 edema, other Psychiatric exam: PRESENT: anxious - Increased since Result Laboratory Results: 08/16/18 22:50 08/16/18 22:50 08/16/18 08/16/18 08/17/18 22:50 22:50 01:15 WBC 18.1 H RBC 4.49 Hgb 14.0 Hct 39.7 MCV 88 MCH 31.1 MCHC 35.1 RDW 13.4 Plt Count 272 Seg Neutrophils % 82.8 H Lymphocytes % 10.5 L Monocytes % 6.4 Eosinophils % 0.1 Basophils % 0.2 Absolute Neutrophils 15.0 H Absolute Lymphocytes 1.9 Absolute Monocytes 1.2 Absolute Eosinophils 0.0 Absolute Basophils 0.0 Sodium 136.4 L Potassium 3.8 Chloride 106 Carbon Dioxide 20 L Anion Gap 10 BUN 12 Creatinine 0.41 L Est GFR ( Amer) > 60 Est GFR (Non-Af Amer) > 60 Glucose 107 Calcium 10.1 Total Bilirubin 0.8 AST 19 ALT 29 Alkaline Phosphatase 59 Total Protein 6.9 Albumin 4.5 Urine Color YELLOW Urine Appearance SLIGHTLY-CLOUDY Urine pH 6.0 Ur Specific [place] 1.029 Urine Protein 30 H Urine Glucose (UA) NEGATIVE Urine Ketones 80 H Urine Blood NEGATIVE Urine Nitrite NEGATIVE Ur Leukocyte Esterase NEGATIVE Urine WBC (Auto) 3 Urine RBC (Auto) 2 Assessment & Plan - Diagnosis (1) Anxiety Is this a current diagnosis for this admission?: Yes (2) Hyperemesis Is this a current diagnosis for this admission?: Yes (3) Qualifiers: Weeks of gestation: 15 weeks Qualified Code(s): Z3A.15 - 15 weeks gestation of - Time Time Spent: 30 to 50 Minutes - Plan Summary Plan Summary: 1. IV fluids 2. Anti-emetics 3. Manage anxiety 4. Advance diet slowly
[2018-08-17] MEDS ORDERED: NORMAL SALINE 1000 ML 2,000 ML IV ONE (04:15)
[2018-08-17] MEDS ORDERED: NORMAL SALINE 1000 ML 1,000 ML IV ONE (04:15)
[2018-08-17 05:27] LABS: URINE AMPHETAMINES SCREEN NEGATIVE; URINE BARBITURATES SCREEN NEGATIVE; URINE BENZODIAZEPINES SCREEN NEGATIVE; URINE COCAINE SCREEN NEGATIVE; URINE METHADONE SCREEN NEGATIVE
[2018-08-17 05:33] LABS: URINE MARIJUANA (THC) SCREEN UNCONFIRMED POSITIVE
[2018-08-17 06:56] LABS: URINE PHENCYCLIDINE SCREEN NEGATIVE
[2018-08-17] MEDS: LORAZEPAM INJ 2 MG/1 ML VIAL IV PRN ×2 (07:49→17:38)
[2018-08-17] MEDS: PROMETHAZINE HCL 25 MG SUPP.RECT PR PRN ×2 (08:40→13:02)
--- NOTE | 2018-08-17 10:23 | PDOC PROGRESS REPORT ---
Subjective Progress Note for:: 08/17/18 Subjective:: pt. reports she thinks her anxiety is what is causing her to vomit, has been able to tolerate 16oz of water this am but vomited apple juice. Was able to place phenergan suppository at 0900. No other concerns at this time Reason For Visit: HYPEREMESIS Physical Exam - Physical Exam Vital Signs: Temp Pulse Resp BP Pulse Ox 98.7 F 86 20 127/86 H 100 08/17/18 07:28 08/17/18 07:28 08/17/18 07:28 08/17/18 07:28 08/17/18 07:28 Intake & Output 08/16/18 08/17/18 08/18/18 06:59 06:59 06:59 Intake Total 4150 Balance 4150 Weight 49.5 kg General appearance: PRESENT: no acute distress Result Laboratory Results: 08/16/18 22:50 08/16/18 22:50 08/16/18 08/16/18 08/17/18 22:50 22:50 01:15 WBC 18.1 H RBC 4.49 Hgb 14.0 Hct 39.7 MCV 88 MCH 31.1 MCHC 35.1 RDW 13.4 Plt Count 272 Seg Neutrophils % 82.8 H Lymphocytes % 10.5 L Monocytes % 6.4 Eosinophils % 0.1 Basophils % 0.2 Absolute Neutrophils 15.0 H Absolute Lymphocytes 1.9 Absolute Monocytes 1.2 Absolute Eosinophils 0.0 Absolute Basophils 0.0 Sodium 136.4 L Potassium 3.8 Chloride 106 Carbon Dioxide 20 L Anion Gap 10 BUN 12 Creatinine 0.41 L Est GFR ( Amer) > 60 Est GFR (Non-Af Amer) > 60 Glucose 107 Calcium 10.1 Total Bilirubin 0.8 AST 19 ALT 29 Alkaline Phosphatase 59 Total Protein 6.9 Albumin 4.5 Urine Color YELLOW Urine Appearance SLIGHTLY-CLOUDY Urine pH 6.0 Ur Specific [place] 1.029 Urine Protein 30 H Urine Glucose (UA) NEGATIVE Urine Ketones 80 H Urine Blood NEGATIVE Urine Nitrite NEGATIVE Ur Leukocyte Esterase NEGATIVE Urine WBC (Auto) 3 Urine RBC (Auto) 2 Assessment & Plan - Diagnosis (1) Hyperemesis Is this a current diagnosis for this admission?: Yes (2) Qualifiers: Weeks of gestation: 15 weeks Qualified Code(s): Z3A.15 - 15 weeks gestation of Is this a current diagnosis for this admission?: Yes Plan: continue clear fluids at this time, advance as tolerated (3) Marijuana abuse Is this a current diagnosis for this admission?: Yes Plan: cessation encouraged (4) Anxiety Is this a current diagnosis for this admission?: Yes Plan: ativian prn per dr. park, encouraged seeing counselor - Time Time Spent with patient: Less than 15 minutes Smoking Cessation Education: 3 to 10 minutes Medications reviewed and adjusted accordingly: Yes Anticipated discharge: Home Within: within 24 hours - Plan Summary Plan Summary: will advance diet as tolerated. continue inpatient status at this time
[2018-08-17] MEDS ORDERED: FAMOTIDINE 20 MG TABLET PO ONE (16:17)
[2018-08-17] MEDS: METOCLOPRAMIDE HCL INJ/PF 10 MG/2 ML SDV IV PRN (20:25)
[2018-08-17] MEDS: RINGERS SOLUTION,LACTATED 1,000 ML IV PRN (22:42)
[2018-08-18] MEDS: LORAZEPAM INJ 2 MG/1 ML VIAL IV PRN (02:17)
--- NOTE | 2018-08-18 08:30 | Physician Advisory Note ---
Physician Advisor ProgressNote .: [facility], I have reviewed the medical record for this patient. Physician Advisor Statement: Documentation states pt has "lost a lot of weight", has now had 4 ED visits for hyperemesis despite having 3 different antiemetics to use at home including Zofran ODT, has had issues with N/V even before that she attributes to anxiety - but she also has h/o THC abuse, which is now known to cause cyclic vomiting syndrome in some pts. Severely low BMI, especially for someone in 2nd trimester, consistent with severe malnutrition. Severe dehydration on arrival, with sunken eyes, dry mucosae, ketonuria, no UOP until s/p 2L IVF & 3 different IV antiemetics, acutely low bicarb consistent with acute metabolic acidosis. She also has VERY low Cr level, also consistent with severe malnutrition. Recurrent tachycardia & nausea, even after 4L of IVF boluses in 1st 7 hrs of care. Please consider documenting, if you agree: 1. "Acute metabolic acidosis, suspect due to ", (or "Acute respiratory alkalosis, suspect due to ", or ....?) 2. "suspected protein-calorie malnutrition [state mild/mod/ sev] with BMI 16.1, ... " & state all supporting evidence you can: A. Loss of subcut fat is mild/mod/sev, B. Loss of muscle mass is mild/mod/sev C. Weed Thinner strength noticeably reduced (or not) D. Amt weight lost over the past week/mo/3mo/6mo/year (note usual wt) E. Intake <50% of estimated energy requirements for 5-7 days, or <75% of estimated energy requirements for 1+mo.s? -Dialysis Rn can document this if consulted. & clinical importance such as: A. co founder and cto consult ordered, B. modified diet/supplements ordered, C. additional labs ordered, D. prolonged wound healing time, E. delayed infxn clearance] STatus: pt failed outpt tx with Reglan, Zofran ODT, & Phenergan tabs, & ED visit the day prior to admission, continuing to worsen. Appropriate for Inpatient status. Thanks, CK
[2018-08-18] MEDS: HYDROXYZINE PAMOATE 50 MG CAPSULE PO SCH ×3 (10:06→22:15)
[2018-08-18] MEDS: FAMOTIDINE 20 MG TABLET PO SCH ×2 (10:06→22:15)
[2018-08-18] MEDS: DEXAMETHASONE SOD PHOSPHATE INJ 4 MG/1 ML VIAL IV SCH ×2 (11:51→17:10)
[2018-08-18] MEDS: METOCLOPRAMIDE HCL INJ/PF 10 MG/2 ML SDV IV PRN (12:40)
--- NOTE | 2018-08-18 12:55 | PDOC CONSULTATION ---
Consultation Consult Date: 08/18/18 Consult reason:: Nausea and vomiting History of Present Illness Admission Date/PCP: 08/17/18 04:22 History of Present Illness: LOGAN RAMOS is a 23 year old female Asked to see this patient for nausea and vomiting there is supposed diagnosis of hyperemesis she is on multiple anti-emetics patient has lost weight, or not gaining appropriate weight for her specific trimester has had anxiety in the past patient has used THC in the past, urine on this admission is positive asked to comment on her nausea and vomiting however since use of THC has been associated with cyclic vomiting syndrome or gastroparesis she cannot have any current procedures or x rays done she will need symptomatic control, add a PPI if needed Past Medical History Pulmonary Medical History: Denies: Asthma Psychiatric Medical History: Reports: Depression Past Surgical History Past Surgical History: Reports: None Social History Lives with: Spouse/Significant other Smoking Status: Former Smoker Drugs: None - Advance Directive Resuscitation Status: Full Code Family History Family History: Reviewed & Not Pertinent Parental Family History Reviewed: Yes Children Family History Reviewed: Unknown Sibling(s) Family History Reviewed.: Unknown Medication/Allergy Home Medications: Metoclopramide HCl [Reglan 10 mg Tablet] 10 mg PO Q6HP PRN #30 tablet 09/12/17 Ondansetron [Zofran Odt 4 mg Tablet] 1 - 2 tab PO Q4H PRN #15 tab.rapdis 12/07/17 Promethazine HCl [Phenergan 25 mg Tablet] 25 mg PO Q6H PRN #10 tablet 06/26/18 Promethazine HCl [Phenergan 25 mg Tablet] 25 mg PO ASDIR PRN #20 tablet 07/27/18 Promethazine HCl [Phenergan 25 mg Tablet] 25 mg PO Q6H PRN #12 tablet 08/15/18 Allergies/Adverse Reactions: No Known Allergies Allergy (Verified 08/15/18 16:29) Review of Systems Constitutional: ABSENT: fever(s), headache(s), night sweats, weakness Eyes: ABSENT: visual disturbances Ears: ABSENT: hearing changes Nose, Mouth, and Throat: ABSENT: mouth pain, sore throat Cardiovascular: ABSENT: edema, orthropnea Respiratory: ABSENT: dyspnea, hemoptysis Gastrointestinal: PRESENT: nausea, vomiting. ABSENT: melena Genitourinary: ABSENT: dysuria, hematuria Musculoskeletal: ABSENT: muscle weakness Neurological: ABSENT: syncope, tingling, tremor(s), vertigo Endocrine: ABSENT: polydipsia, polyphagia, polyuria Hematologic/Lymphatic: ABSENT: easy bruising Physical Exam Vital Signs: Temp Pulse Resp BP Pulse Ox 97.9 F 81 15 136/75 H 100 08/18/18 11:34 08/18/18 11:34 08/18/18 11:34 08/18/18 11:34 08/18/18 11:34 Intake & Output 08/17/18 08/18/18 08/19/18 06:59 06:59 06:59 Intake Total 4150 250 Output Total 3150 Balance 4150 -2900 Weight 49.5 kg General appearance: PRESENT: mild distress Head exam: PRESENT: atraumatic, normocephalic Eye exam: PRESENT: EOMI, PERRLA. ABSENT: nystagmus, periorbital swelling, scleral icterus Mouth exam: PRESENT: moist, neck supple Throat exam: ABSENT: tonsillar exudate, tonsillogmegaly Neck exam: ABSENT: meningismus, tenderness, thyromegaly Respiratory exam: PRESENT: symmetrical. ABSENT: tachypnea, unlabored Cardiovascular exam: PRESENT: RRR, +S1, +S2 GI/Abdominal exam: PRESENT: soft. ABSENT: rebound, rigid, tenderness Extremities exam: ABSENT: joint swelling, pedal edema Musculoskeletal exam: PRESENT: full ROM Neurological exam: PRESENT: alert, awake, oriented to time, oriented to situation, CN II-XII grossly intact Focused psych exam: ABSENT: restlessness Skin exam: PRESENT: normal color. ABSENT: mottled, pallor, urticaria, vesicles Results Laboratory Results: 08/16/18 22:50 08/16/18 22:50 Assessment & Plan - Diagnosis (1) Nausea and vomiting Plan: limited testing due to , will not be able to have EGD done gastric emptying scan, upper GI series also contraindicated at this point with concurrent THC use causing gastroparesis , it is hard to treat, she will need to discontinue that would add PPI to her current regimen could consider use of erythromycin if at all patient may have gallbladder issues and at best an ultrasound since HIDA scan would be relatively contraindicated at this point she will need referral to tertiary institution if there is further weight loss - Time Time Spent: 50 to 70 Minutes
--- NOTE | 2018-08-18 17:09 | Progress Note ---
Provider Note Provider Note: Addendum: it was noted that patient was tested positive for H.pylori in the past and was noted to have been treated inadequately would recommend that she be on a PPI, Prevacid can be used at 15mg and is safe. she should have either a breath test done or check for stool antigen for her H.Pylori the treatment for that if positive will be Amoxicillin 1gm BID, Clarithromycin 500mg BID, peptobismol chewable BID along with a PPI. all of this for 2 weeks recommendations: 1. start prevacid 15mg po daily 2 check for H.Pylori stool antigen or have breath test done and treat as noted above.
[2018-08-18] MEDS: RINGERS SOLUTION,LACTATED 1,000 ML IV PRN (17:10)
[2018-08-19] MEDS: DEXAMETHASONE SOD PHOSPHATE INJ 4 MG/1 ML VIAL IV SCH ×2 (00:09→06:40)
[2018-08-19] MEDS: RINGERS SOLUTION,LACTATED 1,000 ML IV PRN ×2 (00:09→08:18)
[2018-08-19] MEDS: HYDROXYZINE PAMOATE 50 MG CAPSULE PO SCH (06:40)
--- NOTE | 2018-08-19 07:07 | PDOC PROGRESS REPORT ---
Subjective Progress Note for:: 08/18/18 Reason For Visit: HYPEREMESIS @ approximately 15 wks HERMILO. Had issues with vomiting/nausea even prior to and complaining that she has been losing weight for a while. Indicates this AM that she has only vomited a small amount once. Physical Exam - Physical Exam Vital Signs: Temp Pulse Resp BP Pulse Ox 97.9 F 58 L 16 118/66 99 08/19/18 04:38 08/19/18 04:38 08/19/18 04:38 08/19/18 04:38 08/19/18 04:38 Intake & Output 08/17/18 08/18/18 08/19/18 06:59 06:59 06:59 Intake Total 4150 1250 2573 Output Total 3150 600 Balance 4150 -1900 1973 Weight 49.5 kg General appearance: PRESENT: no acute distress, cooperative Result Laboratory Results: 08/16/18 22:50 08/16/18 22:50 Assessment & Plan - Diagnosis (1) Anxiety Is this a current diagnosis for this admission?: Yes (2) Hyperemesis Is this a current diagnosis for this admission?: Yes (3) Nausea and vomiting Is this a current diagnosis for this admission?: Yes (4) Qualifiers: Weeks of gestation: 15 weeks Qualified Code(s): Z3A.15 - 15 weeks gestation of Is this a current diagnosis for this admission?: Yes (5) Marijuana abuse Is this a current diagnosis for this admission?: Yes - Time Time Spent with patient: Less than 15 minutes Smoking Cessation Education: 3 to 10 minutes Medications reviewed and adjusted accordingly: Yes Anticipated discharge: Home Within: within 48 hours - Inpatient Certification Based on my medical assessment, after consideration of the patient's comorbidities, presenting symptoms, or acuity I expect that the services needed warrant INPATIENT care.: Yes I certify that my determination is in accordance with my understanding of Medicare's requirements for reasonable and necessary INPATIENT services [42 CFR 412.3e].: Yes Medical Necessity: Need Close Monitoring Due to Risk of Patient Decompensation, Need For IV Fluids, Other - Plan Summary Plan Summary: GI consult ordered by Dr. Garcia. Dr. Tavarez to see patient and give recommendations later today. Added Dexamethasone for nausea/vomiting and discontinued Ativan due to concerns for terategenicity. Start on Vistaril for anxiety instead. If able will discharge tomorrow pending GI recommendations.
[2018-08-19 07:44] LABS: ALANINE AMINOTRANSFERASE 32 U/L (9-52); ALBUMIN 3.6 g/dL (3.5-5.0); ALKALINE PHOSPHATASE 43 U/L (38-126); ANION GAP 5 (5-19); ASPARTATE AMINO TRANSFERASE 20 U/L (14-36); BILIRUBIN,TOTAL 0.9 mg/dL (0.2-1.3); BLOOD UREA NITROGEN 5 mg/dL (7-20); CARBON DIOXIDE 26 mmol/L (22-30); CHLORIDE 106 mmol/L (98-107); GLUCOSE 129 mg/dL (75-110); POTASSIUM 4.7 mmol/L (3.6-5.0); TOTAL PROTEIN 5.9 g/dL (6.3-8.2)
[2018-08-19] MEDS: FAMOTIDINE 20 MG TABLET PO SCH (09:18)
--- NOTE | 2018-08-19 09:20 | PDOC DISCHARGE SUMMARY ---
General - Admit/Disc Date/PCP Admission Date/Primary Care Provider: 08/17/18 04:22 Discharge Date: 08/19/18 - Additional Information Resuscitation Status: Full Code Home Medications: Metoclopramide HCl [Reglan 10 mg Tablet] 10 mg PO Q6HP PRN #30 tablet 09/12/17 Ondansetron [Zofran Odt 4 mg Tablet] 1 - 2 tab PO Q4H PRN #15 tab.rapdis 12/07/17 Promethazine HCl [Phenergan 25 mg Tablet] 25 mg PO Q6H PRN #10 tablet 06/26/18 Promethazine HCl [Phenergan 25 mg Tablet] 25 mg PO ASDIR PRN #20 tablet 07/27/18 Promethazine HCl [Phenergan 25 mg Tablet] 25 mg PO Q6H PRN #12 tablet 08/15/18 History of Present Illness Patient complains of: Nausea and anxiety. History of Present Illness: LOGAN RAMOS is a 23 year old female She presents with intractable nausea and vomiting. Hospital Course Hospital Course: She improved with IV fluids. Tests for H. pylori have been done. She is doing better and is ready to go home. Physical Exam - Physical Exam Vital Signs: Temp Pulse Resp BP Pulse Ox 98.4 F 71 16 133/83 H 100 08/19/18 07:46 08/19/18 07:46 08/19/18 07:46 08/19/18 07:46 08/19/18 07:46 Intake & Output 08/18/18 08/19/18 08/20/18 06:59 06:59 06:59 Intake Total 1250 2573 1000 Output Total 3150 600 Balance -1900 1973 1000 General appearance: PRESENT: no acute distress, well-developed, well-nourished Result Laboratory Results: 08/16/18 22:50 08/19/18 07:24 08/19/18 07:24 Sodium 137.0 Potassium 4.7 Chloride 106 Carbon Dioxide 26 Anion Gap 5 BUN 5 L Creatinine 0.44 L Est GFR ( Amer) > 60 Est GFR (Non-Af Amer) > 60 Glucose 129 H Calcium 9.0 Total Bilirubin 0.9 AST 20 ALT 32 Alkaline Phosphatase 43 Total Protein 5.9 L Albumin 3.6 Impressions: Improved nausea and vomiting Plan Discharge Plan: Home to rest. Followup in the office next week. Time Spent: Less than 30 Minutes
[2018-08-19] MEDS ORDERED: HYDROXYZINE PAMOATE 50 MG CAPSULE PO PRN (09:21)
[2018-08-19 09:55] VITALS: BP 129/85
[2018-08-19] MEDS ORDERED: LANSOPRAZOLE 15 MG TAB.RAP.DR PO SCH (17:00)
[2018-08-20 19:44] LABS: HELICOBACTER PYLORI IGA AB <9.0 units (0.0-8.9); HELICOBACTER PYLORI IGG AB <0.80 (0.00-0.79); HELICOBACTER PYLORI IGM AB <9.0 units (0.0-8.9)
== END 2018-08-19 10:34 | disposition home or self-care (01) | DRG 832 ==
LOC: ER 22:27 → EH 08-17 02:19 → 2S 08-17 03:00 → OBSVTOIN 08-17 04:22
PROVIDERS: ADMIT Obstetrics & Gynecology; ATTEND Obstetrics & Gynecology
DX: O21.8 Other vomiting complicating pregnancy (principal); O99.322 Drug use complicating pregnancy, second trimester; O99.342 Other mental disorders complicating pregnancy, second trimester; Z3A.15 15 weeks gestation of pregnancy; F12.10 Cannabis abuse, uncomplicated; F32.9 Major depressive disorder, single episode, unspecified; Z87.891 Personal history of nicotine dependence; Z87.19 Personal history of other diseases of the digestive system
CPT/HCPCS: 36415; 80053; 80307; 80349; 81001; 85025; 86677; 96361; 96372; 96374; 96375; 99285; G0480; J1100; J2060; J2405; J2550; J2765; J3490; J7030; J7120

== ENCOUNTER 2018-12-24 15:52 | Outpatient (CLI) | payer BC ==
[2018-12-24] MEDS ORDERED: DEXTROSE 5%-LACTATED RINGERS 1,000 ML IV ONE (16:15)
[2018-12-24] MEDS ORDERED: PROMETHAZINE HCL INJ 25 MG/1 ML VIAL IV ONE (16:16)
[2018-12-24] MEDS ORDERED: RINGERS SOLUTION,LACTATED 1,000 ML IV ONE (16:17)
[2018-12-24] MEDS ORDERED: ONDANSETRON HCL INJ/PF 4 MG/2 ML SDV IV ONE (16:17)
[2018-12-24] MEDS ORDERED: ONDANSETRON HCL INJ/PF 4 MG/2 ML SDV ONE (16:38)
[2018-12-24] MEDS ORDERED: PROMETHAZINE HCL INJ 25 MG/1 ML VIAL ONE (16:38)
[2018-12-24 16:57] LABS: APPEARANCE,URINE CLOUDY; BILIRUBIN,URINE NEGATIVE (NEGATIVE); GLUCOSE, URINE NEGATIVE (NEGATIVE); KETONES,URINE 80 mg/dL (NEGATIVE); LEUKOCYTE ESTERASE,URINE SMALL (NEGATIVE); NITRITE,URINE NEGATIVE (NEGATIVE); PROTEIN,URINE 100 mg/dL (NEGATIVE); URINE SPECIFIC GRAVITY 1.025; UROBILINOGEN,URINE NEGATIVE mg/dL (<2.0)
[2018-12-24 16:58] LABS: COLOR,URINE YELLOW
[2018-12-24 17:05] LABS: URINE AMPHETAMINES SCREEN NEGATIVE; URINE BARBITURATES SCREEN NEGATIVE; URINE BENZODIAZEPINES SCREEN NEGATIVE; URINE COCAINE SCREEN NEGATIVE; URINE METHADONE SCREEN NEGATIVE; URINE PHENCYCLIDINE SCREEN NEGATIVE
[2018-12-24 17:14] LABS: URINE MARIJUANA (THC) SCREEN UNCONFIRMED POSITIVE
[2018-12-24] MEDS ORDERED: ACETAMINOPHEN 650 MG SUPP.RECT PR ONE ×2 (17:58)
--- NOTE | 2018-12-24 19:00 | Non Stress Test Report ---
Non Stress Test Datetime Report Generated by CPN: 12/24/2018 19:00 DEMOGRAPHIC EGA NST: 33.3 INDICATION Indication for Study: Other Indication for Study (NST) Other: iup 33.3 n_v dehydration VITAL SIGNS Temperature - NST: 97.8 Pulse - NST: 109 RESP - NST: 18 NBPSYS NST: 119 NBPDIA NST: 76 MONITORING Monitor Explained: Monitor Explained; Test Explained; Patient Verbalized Understanding Time on Monitor: 12/24/2018 17:00 Time off Monitor: 12/24/2018 17:26 NST Duration: 26 NST INTERVENTIONS NST Interventions: PO Hydration BABY A: [id number] BABY A Movement : Present Contraction Frequency : intermittent FHR Baseline : 145 Accelerations : 15X15 Accelerations : 15X15 Decelerations : None Variability : Moderate 6-25bpm Variability : Moderate 6-25bpm NST Review: Meets Criteria for Reactive NST NST Review and Verified By : Boston Weems RN NST Results: Reactive NST REPORT Report Trigger: Send Report
== END 2018-12-24 18:55 | disposition home or self-care (01) ==
LOC: LC 15:52
PROVIDERS: ATTEND Obstetrics & Gynecology Gynecology
PROC: 4A1HXCZ Monitoring of Products of Conception, Cardiac Rate, External Approach (ICD-10-PCS; principal; 2018-12-24)
DX: O99.283 Endocrine, nutritional and metabolic diseases complicating pregnancy, third trimester (principal); E86.0 Dehydration; O99.613 Diseases of the digestive system complicating pregnancy, third trimester; K52.9 Noninfective gastroenteritis and colitis, unspecified; Z3A.33 33 weeks gestation of pregnancy
CPT/HCPCS: 59025; 81001; 80307; G0480 ×2; J2550; J2405; 80349

== ENCOUNTER 2018-12-25 14:35 | Inpatient (IN) | payer BC ==
[2018-12-25 16:23] LABS: APPEARANCE,URINE SLIGHTLY-CLOUDY; BILIRUBIN,URINE NEGATIVE (NEGATIVE); GLUCOSE, URINE NEGATIVE (NEGATIVE); KETONES,URINE 80 mg/dL (NEGATIVE); LEUKOCYTE ESTERASE,URINE NEGATIVE (NEGATIVE); NITRITE,URINE NEGATIVE (NEGATIVE); PROTEIN,URINE 100 mg/dL (NEGATIVE); URINE SPECIFIC GRAVITY 1.029; UROBILINOGEN,URINE NEGATIVE mg/dL (<2.0)
[2018-12-25 16:25] LABS: COLOR,URINE DARK YELLOW
[2018-12-25 16:36] LABS: URINE AMPHETAMINES SCREEN NEGATIVE; URINE BARBITURATES SCREEN NEGATIVE; URINE BENZODIAZEPINES SCREEN NEGATIVE; URINE COCAINE SCREEN NEGATIVE; URINE METHADONE SCREEN NEGATIVE; URINE PHENCYCLIDINE SCREEN NEGATIVE
[2018-12-25 16:43] LABS: URINE MARIJUANA (THC) SCREEN UNCONFIRMED POSITIVE
[2018-12-25] MEDS ORDERED: FAMOTIDINE INJ/PF 20 MG/2 ML SDV IV ONE (17:02)
[2018-12-25] MEDS: ONDANSETRON HCL INJ/PF 4 MG/2 ML SDV IV PRN (17:06)
[2018-12-25] MEDS: RINGERS SOLUTION,LACTATED 1,000 ML IV PRN (17:13)
[2018-12-25 17:15] LABS: ALANINE AMINOTRANSFERASE 20 U/L (9-52); ALBUMIN 3.7 g/dL (3.5-5.0); ALKALINE PHOSPHATASE 129 U/L (38-126); ANION GAP 15 (5-19); ASPARTATE AMINO TRANSFERASE 20 U/L (14-36); BILIRUBIN,DIRECT 0.3 mg/dL (0.0-0.4); BILIRUBIN,TOTAL 0.8 mg/dL (0.2-1.3); BLOOD UREA NITROGEN 13 mg/dL (7-20); CALCIUM 9.8 mg/dL (8.4-10.2); CARBON DIOXIDE 20 mmol/L (22-30); CHLORIDE 106 mmol/L (98-107); GLUCOSE 96 mg/dL (75-110); POTASSIUM 3.8 mmol/L (3.6-5.0); TOTAL PROTEIN 6.4 g/dL (6.3-8.2)
[2018-12-25] MEDS: PROMETHAZINE HCL INJ 25 MG/1 ML VIAL IV PRN (19:10)
[2018-12-25] MEDS: FAMOTIDINE INJ/PF 20 MG/2 ML SDV IV SCH (22:33)
[2018-12-26] MEDS: RINGERS SOLUTION,LACTATED 1,000 ML IV PRN ×2 (02:05→13:33)
[2018-12-26] MEDS: PROMETHAZINE HCL INJ 25 MG/1 ML VIAL IV PRN (02:13)
[2018-12-26] MEDS: ONDANSETRON HCL INJ/PF 4 MG/2 ML SDV IV PRN (07:22)
[2018-12-26] MEDS: FAMOTIDINE INJ/PF 20 MG/2 ML SDV IV SCH ×2 (12:06→21:31)
[2018-12-26] MEDS ORDERED: NORMAL SALINE 1000 ML 1,000 ML with THIAMINE HCL 100 MG, MVI, ADULT NO.1 WITH VIT K 10 ... IV ONE ×4 (14:00)
--- NOTE | 2018-12-26 14:31 | PDOC PROGRESS REPORT ---
Subjective Progress Note for:: 12/26/18 Subjective:: continued nausea and emesis Reason For Visit: NAUSEA,VOMITING Physical Exam - Physical Exam Vital Signs: Temp Pulse Resp BP Pulse Ox 97.8 F 64 15 120/69 97 12/26/18 12:14 12/26/18 12:14 12/26/18 12:14 12/26/18 12:14 12/26/18 12:14 Intake & Output 12/25/18 12/26/18 12/27/18 06:59 06:59 06:59 Intake Total 1350 1750 Output Total 800 1550 Balance 550 200 Weight 64.2 kg General appearance: PRESENT: no acute distress, well-developed, well-nourished Head exam: PRESENT: atraumatic, normocephalic Eye exam: PRESENT: conjunctiva pink Mouth exam: PRESENT: moist, tongue midline Neck exam: PRESENT: full ROM. ABSENT: carotid bruit, JVD, lymphadenopathy, thyromegaly Respiratory exam: PRESENT: clear to auscultation johnathon, symmetrical, unlabored Cardiovascular exam: PRESENT: RRR. ABSENT: diastolic murmur, rubs, systolic murmur GI/Abdominal exam: PRESENT: other - gravid, External fetam monitoring in place Rectal exam: PRESENT: deferred Extremities exam: PRESENT: full ROM. ABSENT: calf tenderness, clubbing, pedal edema Musculoskeletal exam: PRESENT: ambulatory Neurological exam: PRESENT: alert, awake, oriented to person, oriented to place, oriented to time, oriented to situation, CN II-XII grossly intact. ABSENT: motor sensory deficit Psychiatric exam: PRESENT: appropriate affect, normal mood. ABSENT: homicidal ideation, suicidal ideation Skin exam: PRESENT: dry, intact, warm. ABSENT: cyanosis, rash Result Laboratory Results: 12/25/18 16:37 12/25/18 12/25/18 15:44 16:37 Sodium 141.0 Potassium 3.8 Chloride 106 Carbon Dioxide 20 L Anion Gap 15 BUN 13 Creatinine 0.53 Est GFR ( Amer) > 60 Est GFR (Non-Af Amer) > 60 Glucose 96 Calcium 9.8 Total Bilirubin 0.8 AST 20 ALT 20 Alkaline Phosphatase 129 H Total Protein 6.4 Albumin 3.7 Urine Color DARK YELLOW Urine Appearance SLIGHTLY-CLOUDY Urine pH 5.0 Ur Specific [place] 1.029 Urine Protein 100 H Urine Glucose (UA) NEGATIVE Urine Ketones 80 H Urine Blood NEGATIVE Urine Nitrite NEGATIVE Ur Leukocyte Esterase NEGATIVE Urine WBC (Auto) 4 Urine RBC (Auto) 6 Status: Imported from PACS Assessment & Plan - Diagnosis (1) Cannabinoid hyperemesis syndrome Is this a current diagnosis for this admission?: Yes Plan: reviewed with patient that she is positive for THC again. Reviewed THC causing cyclic vomiting syndrome and gastropareisis. Pt has already been counseled by Dr. tavarez for THC gastopareisis. She will f/u with GI as an outpatient after delivery. She reports 800ml of emesis - not witnessed. She did have 150ml this am that RN saw. Pt advised to notify RN with emesis. Pt advised that will adjust meds and that she needs to stop smoking THC. Will add PPI as per Dr. Tavarez. Add reglan to help with emptying stomach Will need to switch to po meds tomorrow if this regimen helps and then go home on H2 andreas, reglan, PPI, zofran. (2) Cannabis abuse Is this a current diagnosis for this admission?: Yes Plan: pt has been positive repetitively for THC during this (3) Qualifiers: Weeks of gestation: 33 weeks Qualified Code(s): Z3A.33 - 33 weeks gestation of Is this a current diagnosis for this admission?: Yes Plan: 33+5ega Continue daily NST. FKC instruction. No ctx. No VB, no LOF. - Time Time Spent with patient: 15-24 minutes Smoking Cessation Education: over 10 minutes Anticipated discharge: Home Within: within 24 hours - Inpatient Certification Based on my medical assessment, after consideration of the patient's comorbidities, presenting symptoms, or acuity I expect that the services needed warrant INPATIENT care.: Yes I certify that my determination is in accordance with my understanding of Medicare's requirements for reasonable and necessary INPATIENT services [42 CFR 412.3e].: Yes Medical Necessity: Need For IV Fluids - Plan Summary Plan Summary: expect pt will be able to go home tomorrow.
[2018-12-26 15:19] LABS: ABSOLUTE LYMPHOCYTES (AUTO) 1.7 10^3/uL (0.5-4.7); ABSOLUTE MONOCYTES (AUTO) 1.6 10^3/uL (0.1-1.4); ABSOLUTE NEUT (AUTO) 12.6 10^3/uL (1.7-8.2); BASOPHILS % (AUTO) 0.1 % (0-2); EOSINOPHILS % (AUTO) 0.1 % (0-6); HEMATOCRIT 34.5 % (36.0-47.0); HEMOGLOBIN 11.7 g/dL (12.0-15.5); LYMPHOCYTES % (AUTO) 10.7 % (13-45); MEAN CORPUSCULAR HEMOGLOBIN 29.8 pg (27.0-33.4); MEAN CORPUSCULAR HGB CONC 33.9 g/dL (32.0-36.0); MEAN CORPUSCULAR VOLUME 88 fl (80-97); MONOCYTES % (AUTO) 9.8 % (3-13); PLATELET COUNT 200 10^3/uL (150-450); RED BLOOD COUNT 3.94 10^6/uL (3.72-5.28); RED CELL DISTRIBUTION WIDTH 13.2 % (11.5-14.0); SEGMENTED NEUTROPHILS % (AUTO) 79.3 % (42-78); TOTAL CELLS COUNTED % (AUTO) 100 %; WHITE BLOOD COUNT 15.9 10^3/uL (4.0-10.5)
[2018-12-26 15:27] LABS: ALANINE AMINOTRANSFERASE 26 U/L (9-52); ALBUMIN 3.1 g/dL (3.5-5.0); ALKALINE PHOSPHATASE 94 U/L (38-126); AMYLASE 58 U/L (30-110); ANION GAP 8 (5-19); ASPARTATE AMINO TRANSFERASE 20 U/L (14-36); BILIRUBIN,DIRECT 0.7 mg/dL (0.0-0.4); BILIRUBIN,TOTAL 1.3 mg/dL (0.2-1.3); BLOOD UREA NITROGEN 11 mg/dL (7-20); CARBON DIOXIDE 25 mmol/L (22-30); CHLORIDE 107 mmol/L (98-107); GLUCOSE 80 mg/dL (75-110); LIPASE 54.1 U/L (23-300); POTASSIUM 3.8 mmol/L (3.6-5.0); SODIUM 140.2 mmol/L (137-145); TOTAL PROTEIN 5.5 g/dL (6.3-8.2)
[2018-12-26] MEDS: METOCLOPRAMIDE HCL INJ/PF 10 MG/2 ML SDV IV SCH ×2 (17:32→23:35)
[2018-12-26] MEDS: PANTOPRAZOLE SODIUM 40 MG VIAL IV SCH (17:32)
[2018-12-26] MEDS ORDERED: METOCLOPRAMIDE HCL INJ/PF 10 MG/2 ML SDV IV SCH (18:00)
[2018-12-26] MEDS ORDERED: NORMAL SALINE 1000 ML 1,000 ML with POTASSIUM CHLORIDE 20 MEQ, THIAMINE HCL 100 MG, MVI... IV SCH ×4 (18:00)
[2018-12-27] MEDS: ONDANSETRON HCL INJ/PF 4 MG/2 ML SDV IV PRN (04:10)
[2018-12-27] MEDS: METOCLOPRAMIDE HCL INJ/PF 10 MG/2 ML SDV IV SCH (05:50)
[2018-12-27] MEDS: RINGERS SOLUTION,LACTATED 1,000 ML IV PRN (05:51)
--- NOTE | 2018-12-27 09:43 | PDOC DISCHARGE SUMMARY ---
General - Admit/Disc Date/PCP Admission Date/Primary Care Provider: 12/25/18 15:53 CHARMAINE RICHEY MD Discharge Date: 12/27/18 - Discharge Diagnosis (1) Cannabinoid hyperemesis syndrome Is this a current diagnosis for this admission?: Yes (2) Nausea and vomiting Is this a current diagnosis for this admission?: Yes (3) Is this a current diagnosis for this admission?: Yes - Additional Information Home Medications: Famotidine [Pepcid 20 mg Tablet] 20 mg PO Q12 #60 tablet 08/19/18 No115/Iron/Folic Acid [ 19 Chewable Tablet] 1 each PO DAILY 12/24/18 History of Present Illness Patient complains of: Nausea and vomiting History of Present Illness: LOGAN RAMOS is a 23 year old female Hospital Course Hospital Course: She presents in with hyperemisis and wishes IV meds. She did well with hydration and is ready to go home today. Physical Exam - Physical Exam Vital Signs: Temp Pulse Resp BP Pulse Ox 98.1 F 75 18 128/74 H 100 12/27/18 00:52 12/27/18 05:54 12/27/18 00:52 12/27/18 05:54 12/27/18 00:52 Intake & Output 12/26/18 12/27/18 12/28/18 06:59 06:59 06:59 Intake Total 1350 4332 Output Total 800 3450 Balance 550 882 Weight 64.2 kg 65.7 kg General appearance: PRESENT: no acute distress, well-developed, well-nourished Result Laboratory Results: 12/26/18 14:51 12/26/18 14:51 12/26/18 12/26/18 14:51 14:51 WBC 15.9 H RBC 3.94 Hgb 11.7 L Hct 34.5 L MCV 88 MCH 29.8 MCHC 33.9 RDW 13.2 Plt Count 200 Seg Neutrophils % 79.3 H Lymphocytes % 10.7 L Monocytes % 9.8 Eosinophils % 0.1 Basophils % 0.1 Absolute Neutrophils 12.6 H Absolute Lymphocytes 1.7 Absolute Monocytes 1.6 H Absolute Eosinophils 0.0 Absolute Basophils 0.0 Sodium 140.2 Potassium 3.8 Chloride 107 Carbon Dioxide 25 Anion Gap 8 BUN 11 Creatinine 0.55 Est GFR ( Amer) > 60 Est GFR (Non-Af Amer) > 60 Glucose 80 Calcium 9.0 Total Bilirubin 1.3 AST 20 ALT 26 Alkaline Phosphatase 94 Total Protein 5.5 L Albumin 3.1 L Amylase 58 Lipase 54.1 Impressions: Home with antiemetics and scoplomine patch. Plan Discharge Plan: Home to rest Time Spent: Less than 30 Minutes Acute Heart Failure Is this a Heart Failure Patient?: No
[2018-12-27] MEDS: FAMOTIDINE INJ/PF 20 MG/2 ML SDV IV SCH (10:14)
[2018-12-27] MEDS: PANTOPRAZOLE SODIUM 40 MG VIAL IV SCH (10:14)
[2018-12-27 10:28] VITALS: BP 140/73
== END 2018-12-27 10:46 | disposition home or self-care (01) | DRG 832 ==
LOC: LC 14:35 → LR 15:53 → 2S 16:03
PROVIDERS: ADMIT Obstetrics & Gynecology; ATTEND Obstetrics & Gynecology
PROC: 4A1HXCZ Monitoring of Products of Conception, Cardiac Rate, External Approach (ICD-10-PCS; principal; 2018-12-25)
DX: O9A.213 Injury, poisoning and certain other consequences of external causes complicating pregnancy, third trimester (principal); K92.0 Hematemesis; T40.7X1A Poisoning by cannabis (derivatives), accidental (unintentional), initial encounter; Z3A.33 33 weeks gestation of pregnancy
CPT/HCPCS: 36415; 80053; 80307; 81001; 82150; 83690; 85025; J2405; J2550; J2765; J3411; J3480; J3490; J7030; J7120; S0028; S0164

== ENCOUNTER 2019-02-10 09:15 | Inpatient (IN) | payer BC ==
--- NOTE | 2019-02-10 09:19 | Admission Physical ---
Datetime Report Generated by CPN: 02/10/2019 09:19 CURRENT ADMISSION Chief Complaint: Other Chief Complaint Other: intractable vomiting Indication for Induction: Not Applicable Admit Impression : No Active Labor; Medical Complication Admit Plan: Observation/Evaluation Admit Plan- Other: to [facility] for IVF ALLERGIES Medication Allergies: No Medication Allergies: No Known Allergies (12/25/2018) Latex: No Latex Allergies Food Allergies: none Environmental Allergies: none OBSTETRICAL HISTORY EDC: 02/08/2019 00:00 : 2 Para: 0 Term: 0 : 0 SAB: 1 IAB: 0 Ectopic: 0 Livin Cesareans: 0 VBACs: 0 Gestational Diabetes: No Rh Sensitization: No Incompetent Cervix: No CHLOE: No Infertility: No ART Treatment: No Uterine Anomaly: No IUGR: No Hx Previous C/S: No Macrosomia: No Hx Loss/Stillborn: No PIH: No Hx : No Placenta Previa/Abruption: No Depression/PP Depression: Yes PTL/PROM: No Post Hemorrhage: No Current Procedures: Ultrasound SEE RECORDS Alcohol: No Marijuana : No Cocaine: No Other Illicit Drugs: No Cigarettes: Former Smoker. [id number] MEDICAL HISTORY Diabetes: No Blood Transfusion: No Pulmonary Disease (Asthma, TB): No Breast Disease: No Hypertension: No Marble Supervisor Surgery: No Heart Disease: No Hosp/Surgery: No Autoimmune Disorder: No Anesthetic Complications: No Kidney Disease: No Abnormal Pap Smear: No Neuro/Epilepsy: No Psychiatric Disorders: No Other Medical Diseases: No Hepatitis/Liver Disease: No Significant Family History: No Varicosities/Phlebitis: No Trauma/Violence : No Thyroid Dysfunction: No Medical History Comments: Pt has hx of depression, states she does not take medications for it. INFECTIOUS HISTORY Gonorrhea: No Genital Herpes: No Chlamydia: No Tuberculosis: No Syphilis: No Hepatitis: No HIV/AIDS Exposure: No Rash or Viral Illness: No HPV: No PHYSICAL EXAM General: Normal HEENT: Deferred Neurologic: Normal Thyroid: Deferred Heart: Normal Lungs: Normal Breast: Deferred Back: Deferred Abdomen: Normal Genitourinary Exam: Deferred Extremities: Normal DTRs: Deferred Pelvic Type: Not Done Physical Exam Comments: appears ill FETUS A EGA: 33.4 Admit Comment: Pt to get IVF for rehydration until able to tolerate food/fluids PLANS FOR LABOR AND DELIVERY Feeding Preference: Both Benefit of Breast Feed Discussed: Yes Circumcision: Yes INFORMED CONSENT Assignment: Phillip Garcia MD Signature: with User ID: [email or web address] : with User ID: [email or web address]
[2019-02-10] MEDS ORDERED: RINGERS SOLUTION,LACTATED 1,000 ML IV ONE (09:26)
[2019-02-10] MEDS ORDERED: ONDANSETRON 4 MG TAB.RAPDIS ONE (10:08)
[2019-02-10] MEDS ORDERED: OXYTOCIN/NORMAL SALINE 20 UNIT/1,000 ML RTUINJ IV PRN ×2 (10:16→20:22)
[2019-02-10] MEDS ORDERED: OXYTOCIN/NORMAL SALINE 20 UNIT/1,000 ML RTUINJ ONE ×2 (10:17→10:40)
[2019-02-10 10:22] LABS: URINE AMPHETAMINES SCREEN NEGATIVE; URINE BARBITURATES SCREEN NEGATIVE; URINE BENZODIAZEPINES SCREEN NEGATIVE; URINE COCAINE SCREEN NEGATIVE; URINE METHADONE SCREEN NEGATIVE; URINE PHENCYCLIDINE SCREEN NEGATIVE
[2019-02-10] MEDS ORDERED: ONDANSETRON 4 MG TAB.RAPDIS PO ONE (10:26)
[2019-02-10 10:30] LABS: URINE MARIJUANA (THC) SCREEN UNCONFIRMED POSITIVE
[2019-02-10 10:32] LABS: ABSOLUTE EOSINOPHILS # (AUTO) 0.1 10^3/uL (0.0-0.6); ABSOLUTE LYMPHOCYTES (AUTO) 2.5 10^3/uL (0.5-4.7); ABSOLUTE MONOCYTES (AUTO) 1.5 10^3/uL (0.1-1.4); ABSOLUTE NEUT (AUTO) 15.4 10^3/uL (1.7-8.2); BASOPHILS % (AUTO) 0.2 % (0-2); EOSINOPHILS % (AUTO) 0.7 % (0-6); HEMATOCRIT 37.6 % (36.0-47.0); HEMOGLOBIN 12.5 g/dL (12.0-15.5); MEAN CORPUSCULAR HEMOGLOBIN 28.3 pg (27.0-33.4); MEAN CORPUSCULAR HGB CONC 33.2 g/dL (32.0-36.0); MEAN CORPUSCULAR VOLUME 85 fl (80-97); MONOCYTES % (AUTO) 7.5 % (3-13); PLATELET COUNT 234 10^3/uL (150-450); RED BLOOD COUNT 4.41 10^6/uL (3.72-5.28); RED CELL DISTRIBUTION WIDTH 13.7 % (11.5-14.0); SEGMENTED NEUTROPHILS % (AUTO) 78.6 % (42-78); TOTAL CELLS COUNTED % (AUTO) 100 %; WHITE BLOOD COUNT 19.6 10^3/uL (4.0-10.5)
[2019-02-10] MEDS ORDERED: MISOPROSTOL 0.2 MG TABLET ONE (10:39)
[2019-02-10] MEDS ORDERED: OXYTOCIN 10 UNIT/ML VIAL ONE (10:39)
[2019-02-10] MEDS ORDERED: LIDOCAINE 1% INJ-PF (10 MG/ML) 30 ML SDV ONE (10:39)
[2019-02-10] MEDS ORDERED: EPHEDRINE SULFATE INJ 50 MG/1 ML AMPULE ONE (11:54)
[2019-02-10] MEDS ORDERED: FENTANYL/BUPIVACAINE/NS/PF 300 MCG/150 ML RTUINJ EPI ONE (11:55)
[2019-02-10] MEDS ORDERED: BUPIVACAINE HCL 0.25 % INJ/PF (2.5 MG/1 ML) 30 ML VIAL ONE (11:55)
[2019-02-10] MEDS ORDERED: FAMOTIDINE INJ/PF 20 MG/2 ML SDV IV ONE (12:53)
--- NOTE | 2019-02-10 12:58 | Warning Signs in Babies ---
VOD Warning Signs Datetime Report Generated by [facility]: 02/10/2019 12:58 VOD#608 -Warning Signs in Babies: Viewed with Parent(s)/Family (02/10/2019 12:57:Tristen Suárez RN)
[2019-02-10] MEDS: RINGERS SOLUTION,LACTATED 1,000 ML IV PRN ×2 (13:07→21:25)
[2019-02-10] MEDS ORDERED: METHYLERGONOVINE MALEATE INJ/PF 0.2 MG/1 ML AMPULE ONE (20:13)
[2019-02-10] MEDS ORDERED: NA PHOS,M-B/NA PHOS,DI-BA (ADULT) 133 ML ENEMA PR PRN (20:22)
[2019-02-10] MEDS ORDERED: MAGNESIUM HYDROXIDE SUSP 30 ML UDCUP PO PRN (20:22)
[2019-02-10] MEDS ORDERED: DIPHENHYDRAMINE HCL 25 MG CAPSULE PO PRN (20:22)
[2019-02-10] MEDS ORDERED: MISOPROSTOL 0.2 MG TABLET PR PRN (20:22)
[2019-02-10] MEDS ORDERED: PROMETHAZINE HCL INJ 25 MG/1 ML VIAL IV PRN (20:22)
[2019-02-10] MEDS ORDERED: GLYCERIN/WITCH HAZEL LEAF 1 EACH MED..WIPE TP PRN (20:22)
[2019-02-10] MEDS ORDERED: MEASLES,MUMPS&RUBELLA VACC/PF 0.5 ML VIAL SUBCUT PRN (20:22)
[2019-02-10] MEDS ORDERED: ACETAMINOPHEN 325 MG TABLET PO PRN (20:22)
[2019-02-10] MEDS ORDERED: PSEUDOEPHEDRINE HCL 30 MG TABLET PO PRN (20:22)
[2019-02-10] MEDS ORDERED: BENZOCAINE/MENTHOL AEROSOL SPRAY 56 ML TOP PRN (20:22)
[2019-02-10] MEDS ORDERED: DIPH/PERTUSS(ACELL)/TETANUS VAC/PF 0.5 ML SYR (>=10YO) IM PRN (20:22)
[2019-02-10] MEDS ORDERED: METHYLERGONOVINE MALEATE INJ/PF 0.2 MG/1 ML AMPULE IM PRN (20:22)
[2019-02-10] MEDS ORDERED: PROMETHAZINE HCL 25 MG TABLET PO PRN (20:22)
[2019-02-10] MEDS ORDERED: ACETAMINOPHEN WITH CODEINE #3 TABLET PO PRN ×2 (20:22)
[2019-02-10] MEDS ORDERED: ZOLPIDEM TARTRATE 5 MG TABLET PO PRN (20:22)
[2019-02-10] MEDS ORDERED: PROMETHAZINE HCL 25 MG SUPP.RECT PR PRN (20:22)
[2019-02-10] MEDS ORDERED: DIBUCAINE 1% OINTMENT 56 GM TP PRN (20:22)
[2019-02-10] MEDS ORDERED: PROMETHAZINE HCL INJ 25 MG/1 ML VIAL ONE (20:27)
[2019-02-10] MEDS ORDERED: PROMETHAZINE HCL INJ 25 MG/1 ML VIAL IV ONE (20:30)
[2019-02-10] MEDS ORDERED: CEFAZOLIN 2 GM/D5W RTU 2 GM/50 ML RTUPB IV ONE (21:15)
[2019-02-10] MEDS: IBUPROFEN 800 MG TABLET PO SCH (21:52)
[2019-02-10] MEDS ORDERED: IBUPROFEN 800 MG TABLET ONE (21:52)
--- NOTE | 2019-02-10 22:06 | Delivery Summary ---
Del Sum A-C Datetime Report Generated by CPN: 02/10/2019 22:05 DELIVERY PERSONNEL DELIVERY PERSONNEL: [id number] Delivery Doctor:: Sary Mcghee MD Labor and Delivery Nurse:: Tristen Suárez RNdiploma dental assistant Nurse:: Ricardo Argueta RN Joy Loading Machine Operator:: Zuleyma Asencio RN Nursery Nurse:: Sarah Olmedo RN Student Observers:: Sunshine Blanchard from [facility]. Spa Therapist/BUSINESS APPLICATIONS ANALYST: Brittny Julio, ST MATERNAL INFORMATION Delivery Anesthesia: Epidural Medications After Delivery: Pitocin Bolus-Please Comment; Pitocin Drip 20 Units/1000ml NSS Meds After Delivery Comment: Pitocin 20 units in 1 L of NS bolusing. Estimated Blood Loss (ml): 709 Delivery QBL: 709 Delivery QBL Comment: 709 Maternal Complications: Hemorrhage Complication Details: meconium in amniotic fluid Provider Comments: VMI delivered in TYREL presentation. No nuchal cord. Shoulders and body delivered without difficulty. Cord double clamped and cut and infant to maternal abdomen. Placenta delivered intact spontaneously but membranes remained and were manually extracted. Cytotec given KS and Methergine given into lower uterine segment. PPH with QBL of 709ml. Left labial and 1st degree repaired in usual fashion with good hemostasis. LABOR SUMMARY EDC: 02/08/2019 00:00 No. Babies in Womb: 1 Attempted: No Labor Anesthesia: Epidural LABOR INFORMATION Reason for Induction: Oligohydramnios Onset of Labor: 02/10/2019 15:03 Complete Dilatation: 02/10/2019 18:57 Oxytocin: Induction Group B Beta Strep: negative Steroids Given: None Reason Steroids Not Administered: Not Applicable MEMBRANES Membranes Rupture Method: Artificial Rupture of Membranes: 02/10/2019 15:03 Length of Rupture (hr): 4.83 Amniotic Fluid Color: Moderate Meconium Amniotic Fluid Amount: Moderate Amniotic Fluid Odor: Normal STAGES OF LABOR Stage 1 hr: 3 Stage 1 min: 54 Stage 2 hr: 0 Stage 2 min: 56 Stage 3 hr: 0 Stage 3 min: 3 Total Time in Labor hr: 4 Total Time in Labor min: 53 VAGINAL DELIVERY Episiotomy: None Laceration #1: Perineal Laceration Extension #1: First Degree Laceration #2: Vaginal Laceration Extension #2: N/A Other Laceration: left labial and superficial midline Laceration Repair: Yes Laceration Repair Note: 1st degree perineal laceration and left labial laceration repaired in usual fashion. Sponge Count Correct: Yes Sharps Count Correct: Yes CSECTION DELIVERY Primary Indication: N/A Secondary Indication: N/A CSection Incidence: N/A Labor: N/A Elective: N/A CSection Incision: N/A BABY A INFORMATION Delivery Date/Time: 02/10/2019 19:53 Method of Delivery: Vaginal Born in Route : No : N/A Forceps: N/A Vacuum Extraction: N/A Shoulder Dystocia : No PRESENTATION/POSITION BABY A Presentation: Cephalic Cephalic Presentation: Vertex Vertex Position: Left Occipital Anterior Breech Presentation: N/A PLACENTA INFORMATION BABY A Placenta Delivery Time : 02/10/2019 19:56 Placenta Method of Delivery: Spontaneous Placenta Status: Delivered SCORES BABY A Heart Rate 1 min: >100 bpm Resp Effort 1 min: Good Cry Reflex Irritability 1 min: Cough or Sneeze or Pulls Away Muscle Tone 1 min: Active Motion Color 1 min: Blue/Pale SCORE 1 MIN: 8 Heart Rate 5 min: >100 bpm Resp Effort 5 min: Good Cry Reflex Irritability 5 min: Cough or Sneeze or Pulls Away Muscle Tone 5 min: Active Motion Color 5 min: Body [place], Extremities Blue SCORE 5 MIN: 9 INFORMATION BABY A Gestational Age at Delivery: 40.2 Gestational Status: Full Term- 39- 40.6 Weeks Outcome : Liveborn Condition : Stable Sex: Male IDENTIFICATION BABY A Verification Date/Time: 02/10/2019 20:10 ID Band Number: [id number] Mother's Name Verified: Yes Infant RN Verifying : Archana Argueta RN Additional Verifying Personnel: C Parisilin RN WEIGHT/LENGTH BABY A Infant Birthweight (gm): 3490 Weight (lb): 7 Infant Weight (oz): 11 Infant Length (in): 20.25 Length (cm): 51.44 CORD INFORMATION BABY A No. Cord Vessels: 3 Nuchal Cord : N/A Cord Blood Taken: Yes-For Eval (Mom's Blood Type - or O+) Suction: Mouth; Nose ASSESSMENT BABY A Infant Complications: Meconium; Oligohydramnios Physical Findings at Delivery: Within Normal Limits Infant Respirations: Appears Normal Skin to Skin: Yes School Patrol/ALS Called : No Care By: C, Scarlet RN Transferred To: Remains with Mother BABY B INFORMATION : N/A SIGNATURES Signature: with User ID: [email or web address] : I was personally available for consultation and serving as supervising physician for the MLP.
[2019-02-10] MEDS: FAMOTIDINE 20 MG TABLET PO SCH (23:42)
[2019-02-11] MEDS: CEFAZOLIN 2 GM/D5W RTU 2 GM/50 ML RTUPB IV SCH ×3 (04:14→15:59)
[2019-02-11] MEDS: IBUPROFEN 800 MG TABLET PO SCH ×3 (05:49→22:04)
[2019-02-11 06:55] LABS: HEMATOCRIT 29.8 % (36.0-47.0); MEAN CORPUSCULAR HGB CONC 34.2 g/dL (32.0-36.0); MEAN CORPUSCULAR VOLUME 85 fl (80-97); PLATELET COUNT 199 10^3/uL (150-450); RED BLOOD COUNT 3.52 10^6/uL (3.72-5.28); RED CELL DISTRIBUTION WIDTH 13.7 % (11.5-14.0); WHITE BLOOD COUNT 22.2 10^3/uL (4.0-10.5)
[2019-02-11 07:45] LABS: HEMOGLOBIN 10.2 g/dL (12.0-15.5)
--- NOTE | 2019-02-11 09:37 | PDOC PROGRESS REPORT ---
Subjective-OB Progress Note for:: 02/11/19 Subjective: Smokes marijuana daily to help with her anxiety-on no meds for anxiety. Physical Exam (OB) Vital Signs: Temp Pulse Resp BP Pulse Ox 98.2 F 94 17 122/82 98 02/11/19 07:58 02/11/19 07:58 02/11/19 07:58 02/11/19 07:58 02/11/19 07:58 Intake & Output 02/10/19 02/11/19 02/12/19 06:59 06:59 06:59 Intake Total 1050 1000 Balance 1050 1000 Weight 71.5 kg - PIH/Pre-Eclampsia DTR's: 2 + Clonus: Negative Headache: Absent Epigastric Pain: No Visual Changes: No - Lochia Lochia Amount: Small 10-25 ml Lochia Color: Rubra/Red - Abdomen Description: Soft, Round Hernia Present: No Bowel Sounds: Normoactive Flatus Presence: Present Stool: No Fundal Description: Firm, Midline Objective-Diagnostic Laboratory: 02/11/19 06:20 02/10/19 02/10/19 02/11/19 10:10 10:10 06:20 WBC 19.6 H 22.2 H RBC 4.41 3.52 L Hgb 12.5 10.2 L D Hct 37.6 29.8 L MCV 85 85 MCH 28.3 29.0 MCHC 33.2 34.2 RDW 13.7 13.7 Plt Count 234 199 Seg Neutrophils % 78.6 H Lymphocytes % 13.0 Monocytes % 7.5 Eosinophils % 0.7 Basophils % 0.2 Absolute Neutrophils 15.4 H Absolute Lymphocytes 2.5 Absolute Monocytes 1.5 H Absolute Eosinophils 0.1 Absolute Basophils 0.0 Blood Type O POSITIVE Antibody Screen NEGATIVE
[2019-02-11] MEDS: FERROUS SULFATE 325 MG TABLET PO SCH ×2 (10:09→17:59)
[2019-02-11] MEDS: DOCUSATE SODIUM 100 MG CAPSULE PO SCH ×2 (10:09→17:59)
[2019-02-11] MEDS: PRENATAL VITAMIN W DHA CAPSULE PO SCH (10:09)
[2019-02-11] MEDS: FAMOTIDINE 20 MG TABLET PO SCH ×2 (10:09→22:04)
[2019-02-11] MEDS: SENNOSIDES/DOCUSATE 8.6-50 MG 1 EACH TABLET PO SCH (10:09)
[2019-02-12] MEDS: IBUPROFEN 800 MG TABLET PO SCH ×2 (05:17→13:04)
[2019-02-12 06:52] LABS: HEMATOCRIT 29.5 % (36.0-47.0); MEAN CORPUSCULAR HEMOGLOBIN 29.1 pg (27.0-33.4); MEAN CORPUSCULAR VOLUME 86 fl (80-97); PLATELET COUNT 230 10^3/uL (150-450); RED BLOOD COUNT 3.45 10^6/uL (3.72-5.28); RED CELL DISTRIBUTION WIDTH 13.7 % (11.5-14.0); WHITE BLOOD COUNT 15.3 10^3/uL (4.0-10.5)
[2019-02-12] MEDS: FERROUS SULFATE 325 MG TABLET PO SCH (09:25)
[2019-02-12] MEDS: DOCUSATE SODIUM 100 MG CAPSULE PO SCH (09:25)
[2019-02-12] MEDS: SENNOSIDES/DOCUSATE 8.6-50 MG 1 EACH TABLET PO SCH (09:25)
[2019-02-12] MEDS: PRENATAL VITAMIN W DHA CAPSULE PO SCH (09:25)
[2019-02-12] MEDS: FAMOTIDINE 20 MG TABLET PO SCH (09:27)
--- NOTE | 2019-02-12 09:33 | PDOC DISCHARGE SUMMARY ---
Final Diagnosis Discharge Date: 02/12/19 - Final Diagnosis (1) Cannabis abuse Is this a current diagnosis for this admission?: Yes (2) Encounter for planned induction of labor Is this a current diagnosis for this admission?: Yes (3) Obstetric labial laceration, delivered, current hospitalization Is this a current diagnosis for this admission?: Yes (4) Oligohydramnios Is this a current diagnosis for this admission?: Yes (5) hemorrhage Is this a current diagnosis for this admission?: Yes (6) Vaginal delivery Is this a current diagnosis for this admission?: Yes Discharge Data - Discharge Medication Prescriptions: Ibuprofen [Motrin 800 mg Tablet] 800 mg PO Q8 #90 tablet Home Medications: Famotidine [Pepcid 20 mg Tablet] 20 mg PO Q12 #60 tablet 08/19/18 No115/Iron/Folic Acid [ 19 Chewable Tablet] 1 each PO DAILY 12/24/18 Ibuprofen [Motrin 800 mg Tablet] 800 mg PO Q8 #90 tablet 02/12/19 Reason(s) for Admission: Induction of Labor Intrapartum Procedure(s): Spontaneous Vaginal Delivery - Diagnosis Test Laboratory: Temp Pulse Resp BP Pulse Ox 98.3 F 79 15 118/74 100 02/12/19 08:12 02/12/19 08:12 02/12/19 08:12 02/12/19 08:12 02/12/19 08:12 02/10/19 02/10/19 02/11/19 09:45 10:10 06:20 RBC 4.41 3.52 L Hgb 12.5 10.2 L D Hct 37.6 29.8 L Urine Opiates Screen NEGATIVE 02/12/19 06:20 RBC 3.45 L Hgb 10.0 L Hct 29.5 L Urine Opiates Screen - Discharge information/Instructions Discharge Activity: Activity As Tolerated, No Lifting/Push/Pulling, Pelvic Rest, No tub bath, Walk Frequently Discharge Diet: Regular Disposition: HOME, SELF-CARE Follow up with: [facility] in: 4
[2019-02-12 09:47] VITALS: BP 122/82
== END 2019-02-12 17:50 | disposition home or self-care (01) | DRG 806 ==
LOC: LC 09:15 → LR 09:19 → 2S 22:35
PROVIDERS: ADMIT Student in an Organized Health Care Education/Training Program; ATTEND Student in an Organized Health Care Education/Training Program
PROC: 10E0XZZ Delivery of Products of Conception, External Approach (ICD-10-PCS; principal; 2019-02-10)
PROC: 0HQ9XZZ Repair Perineum Skin, External Approach (ICD-10-PCS; 2019-02-10)
PROC: 10907ZC Drainage of Amniotic Fluid, Therapeutic from Products of Conception, Via Natural or Artificial Opening (ICD-10-PCS; 2019-02-10)
DX: O77.0 Labor and delivery complicated by meconium in amniotic fluid (principal); O72.1 Other immediate postpartum hemorrhage; Z37.0 Single live birth; O41.03X0 Oligohydramnios, third trimester, not applicable or unspecified; O99.324 Drug use complicating childbirth; O70.0 First degree perineal laceration during delivery; Z3A.40 40 weeks gestation of pregnancy; F12.90 Cannabis use, unspecified, uncomplicated
CPT/HCPCS: 36415; 80307; 80349; 84112; 85025; 85027; 86592; 86850; 86900; 86901; 88307; 94760; G0480; J0690; J2210; J2550; J2590; J3010; J3490; S0119

== ENCOUNTER 2019-08-05 10:49 | Emergency (ER) | payer BC ==
--- NOTE | 2019-08-05 10:59 | ER Document Report ---
ED Medical Screen (RME) - General Chief Complaint: Vomiting Stated Complaint: VOMITING Time Seen by Provider: 08/05/19 10:58 Primary Care Provider: ALLYN HARPER MD [Primary Care Provider] - Follow up as needed TRAVEL OUTSIDE OF THE [place] IN LAST 30 DAYS: No - HPI Notes: 08/05/19 10:58 Patient is a 24-year-old female with a history of hyperemesis who presents complaining of nausea vomiting that began this morning. Patient states that this occurs every 3 to 9 months for unknown reason. Denies drug allergies. Patient states that she does have some cramping in her hands bilaterally. Denies fever. No chest pain or shortness of breath. No abdominal pain. I have treated and performed a rapid initial assessment of this patient. A comprehensive ED assessment and evaluation of the patient, analysis of test results and completion of medical decision making process will be conducted by additional ED providers. PHYSICAL EXAMINATION: GENERAL: Well-appearing, well-nourished and in no acute distress. A&Ox4. Answers questions appropriately. Lungs: CTAB Abdomen: Limited exam in triage, but grossly soft without focal tenderness. - Related Data Allergies/Adverse Reactions: No Known Allergies Allergy (Verified 02/10/19 10:17) Past Medical History Pulmonary Medical History: Denies: Hx Asthma Renal/ Medical History: Denies: Hx Peritoneal Dialysis Psychiatric Medical History: Reports: Hx Anxiety, Hx Depression - Immunizations Immunizations up to date: Yes Hx Diphtheria, Pertussis, Tetanus Vaccination: No Doctor's Discharge - Discharge Referrals: ALLYN HARPER MD [Primary Care Provider] - Follow up as needed
[2019-08-05] MEDS ORDERED: ONDANSETRON HCL INJ/PF 4 MG/2 ML SDV IV ONE (11:00)
--- NOTE | 2019-08-05 11:34 | ER Document Report ---
ED General - General Chief Complaint: Nausea/Vomiting Stated Complaint: VOMITING Time Seen by Provider: 08/05/19 10:58 Primary Care Provider: ALLYN HARPER MD [ACTIVE STAFF] - Follow up in 1 week Mode of Arrival: Ambulatory Information source: Patient Notes: 24-year-old female with complaints of nausea vomiting without abdominal pain that started this morning. Patient reports this happens every 3 to 9 months. She reports she smokes marijuana daily. She reports she has been told that is why she is having the nausea and vomiting but she does not believe it. She denies abdominal pain. Denies fever reports light stool this morning. Denies pain with void. TRAVEL OUTSIDE OF THE [place] IN LAST 30 DAYS: No - HPI Onset: This morning Onset/Duration: Sudden Quality of pain: No pain Associated symptoms: Nausea, Vomiting Exacerbated by: Denies Similar symptoms previously: Yes Recently seen / treated by doctor: No - Related Data Allergies/Adverse Reactions: No Known Allergies Allergy (Verified 02/10/19 10:17) Past Medical History - General Information source: Patient Last Menstrual Period: 2 months ago reports negative test - Social History Smoking Status: Never Smoker Frequency of alcohol use: None Drug Abuse: Marijuana Occupation: [employer] Lives with: Family Family History: Reviewed & Not Pertinent Patient has suicidal ideation: No Patient has homicidal ideation: No Pulmonary Medical History: Denies: Hx Asthma Renal/ Medical History: Denies: Hx Peritoneal Dialysis Psychiatric Medical History: Reports: Hx Anxiety, Hx Depression Surgical Hx: Negative - Immunizations Immunizations up to date: Yes Hx Diphtheria, Pertussis, Tetanus Vaccination: No Review of Systems - Review of Systems Notes: Review HPI for review of systems., All other systems negative Physical Exam - Vital signs Vitals: Temp Pulse Resp BP Pulse Ox 97.2 F 64 16 124/90 H 100 08/05/19 10:55 08/05/19 10:55 08/05/19 10:55 08/05/19 10:55 08/05/19 10:55 - Notes Notes: PHYSICAL EXAMINATION: GENERAL: Well-appearing and in no acute distress HEAD: Atraumatic, normocephalic. EYES: Pupils equal round extraocular movements intact, sclera anicteric, conjunctiva are normal. ENT: nares patent, oropharynx clear without exudates. Moist mucous membranes. NECK: Normal range of motion, supple without lymphadenopathy LUNGS: CTAB and equal. No wheezes rales or rhonchi. HEART: Regular rate and rhythm without murmurs ABDOMEN: Soft, no tenderness. No guarding, no rebound BACK: Denies pain EXTREMITIES: Normal range of motion, no pitting edema. No cyanosis. NEUROLOGICAL: Cranial nerves grossly intact. Calm PSYCH: Normal mood, normal affect. SKIN: Warm, Dry, normal turgor, no rashes or lesions noted Course - Re-evaluation Re-evalutation: 08/05/19 11:33 24-year-old female presents with nausea vomiting with reports of daily marijuana use. Reports this happens to her every 3 to 9 months. She has been told that it is connected to her marijuana use but she does not believe it. She reports she has a hard time eating so she smokes even more marijuana. She also reports she is quit her medications for depression anxiety because of this. 08/05/19 12:42 Fluids since refusing. Patient reports no further vomiting but now feels like her fingertips and toes are tingling. 08/05/19 13:38 No further vomiting. Patient reports she feels better. Will attempt p.o. adela llenge 08/05/19 Patient drinking p.o. fluids without problems instructed on all labs instructed on Zofran medication. Also encouraged to quit smoking marijuana. She verbalized understanding to all instructions. She was instructed to follow-up with her primary care provider for continued symptoms for referral to gastroenterology as indicated. - Vital Signs Vital signs: Temp Pulse Resp BP Pulse Ox 97.2 F 71 18 127/77 H 100 08/05/19 10:55 08/05/19 13:47 08/05/19 13:47 08/05/19 13:47 08/05/19 13:47 - Laboratory Result Diagrams: 08/05/19 11:25 08/05/19 11:25 Laboratory results interpreted by me: 08/05/19 08/05/19 08/05/19 11:25 11:25 12:31 WBC 14.5 H RDW 15.3 H Lymph % (Auto) 6.4 L Absolute Neuts (auto) 12.9 H Seg Neutrophils % 89.2 H Glucose 136 H Lipase 21.6 L Urine Protein 100 H Urine Glucose (UA) 50 H Urine Ketones 80 H Discharge - Discharge Clinical Impression: Nausea and vomiting, Cannabis abuse Condition: Stable Disposition: HOME, SELF-CARE Instructions: Antinausea Medication ([facility]), Vomiting ([facility]) Additional Instructions: *You have been evaluated for nausea/vomiting *Take medication as prescribed for nausea *Avoid marijuana *Ensure adequate fluid intake as discussed to prevent dehydration *Follow up with a primary care provider within 1 week for recheck *Return to ED for worsening condition, changes, needs, concerns Forms: Return to Work Referrals: ALLYN HARPER MD [ACTIVE STAFF] - Follow up in 1 week
[2019-08-05] MEDS: NORMAL SALINE 1000 ML 1,000 ML IV PRN ×2 (11:36→12:42)
[2019-08-05 11:57] LABS: ABSOLUTE LYMPHOCYTES (AUTO) 0.9 10^3/uL (0.5-4.7); ABSOLUTE MONOCYTES (AUTO) 0.6 10^3/uL (0.1-1.4); ABSOLUTE NEUT (AUTO) 12.9 10^3/uL (1.7-8.2); BASOPHILS % (AUTO) 0.3 % (0-2); HEMATOCRIT 38.3 % (36.0-47.0); LYMPHOCYTES % (AUTO) 6.4 % (13-45); MEAN CORPUSCULAR HEMOGLOBIN 28.6 pg (27.0-33.4); MEAN CORPUSCULAR VOLUME 84 fl (80-97); MONOCYTES % (AUTO) 4.1 % (3-13); PLATELET COUNT 222 10^3/uL (150-450); RED BLOOD COUNT 4.56 10^6/uL (3.72-5.28); RED CELL DISTRIBUTION WIDTH 15.3 % (11.5-14.0); SEGMENTED NEUTROPHILS % (AUTO) 89.2 % (42-78); TOTAL CELLS COUNTED % (AUTO) 100 %; WHITE BLOOD COUNT 14.5 10^3/uL (4.0-10.5)
[2019-08-05 12:17] LABS: ALBUMIN 4.7 g/dL (3.5-5.0); ALKALINE PHOSPHATASE 73 U/L (38-126); ANION GAP 16 (5-19); ASPARTATE AMINO TRANSFERASE 27 U/L (14-36); BILIRUBIN,DIRECT 0.3 mg/dL (0.0-0.4); BILIRUBIN,TOTAL 1.1 mg/dL (0.2-1.3); BLOOD UREA NITROGEN 12 mg/dL (7-20); CALCIUM 10.1 mg/dL (8.4-10.2); CARBON DIOXIDE 22 mmol/L (22-30); CHLORIDE 104 mmol/L (98-107); GLUCOSE 136 mg/dL (75-110); POTASSIUM 4.1 mmol/L (3.6-5.0); TOTAL PROTEIN 7.8 g/dL (6.3-8.2)
[2019-08-05] MEDS ORDERED: METOCLOPRAMIDE HCL INJ/PF 10 MG/2 ML SDV IV ONE (12:42)
[2019-08-05 12:55] LABS: APPEARANCE,URINE CLEAR; BILIRUBIN,URINE NEGATIVE (NEGATIVE); COLOR,URINE YELLOW; GLUCOSE, URINE 50 mg/dL (NEGATIVE); KETONES,URINE 80 mg/dL (NEGATIVE); PROTEIN,URINE 100 mg/dL (NEGATIVE); URINE SPECIFIC GRAVITY 1.024; UROBILINOGEN,URINE NEGATIVE mg/dL (<2.0)
[2019-08-05 13:26] LABS: URINE AMPHETAMINES SCREEN NEGATIVE; URINE BARBITURATES SCREEN NEGATIVE; URINE BENZODIAZEPINES SCREEN NEGATIVE; URINE COCAINE SCREEN NEGATIVE; URINE METHADONE SCREEN NEGATIVE; URINE PHENCYCLIDINE SCREEN NEGATIVE
[2019-08-05 13:27] LABS: URINE MARIJUANA (THC) SCREEN UNCONFIRMED POSITIVE
[2019-08-05 13:48] VITALS: BP 127/77
[2019-08-05] MEDS ORDERED: ONDANSETRON ODT 4 MG TAB (6 TAB/ER DISP) PO PRN (14:09)
== END 2019-08-05 14:20 | disposition home or self-care (01) ==
LOC: ER 10:49
DX: R11.2 Nausea with vomiting, unspecified (principal); F12.10 Cannabis abuse, uncomplicated
CPT/HCPCS: 99284; 96361; 96374; 96375; 36415; 83690; 83735; 84703; 85025; 80053; 81001; 80307; J2765; J2405; J7030

== ENCOUNTER 2019-08-08 04:25 | Emergency (ER) | payer BC ==
[2019-08-08 05:14] LABS: ABSOLUTE LYMPHOCYTES (AUTO) 2.1 10^3/uL (0.5-4.7); ABSOLUTE MONOCYTES (AUTO) 1.3 10^3/uL (0.1-1.4); ABSOLUTE NEUT (AUTO) 8.5 10^3/uL (1.7-8.2); BASOPHILS % (AUTO) 0.3 % (0-2); EOSINOPHILS % (AUTO) 0.1 % (0-6); HEMATOCRIT 43.1 % (36.0-47.0); HEMOGLOBIN 14.7 g/dL (12.0-15.5); LYMPHOCYTES % (AUTO) 17.2 % (13-45); MEAN CORPUSCULAR HEMOGLOBIN 28.8 pg (27.0-33.4); MEAN CORPUSCULAR HGB CONC 34.2 g/dL (32.0-36.0); MEAN CORPUSCULAR VOLUME 84 fl (80-97); MONOCYTES % (AUTO) 11.2 % (3-13); PLATELET COUNT 302 10^3/uL (150-450); RED BLOOD COUNT 5.11 10^6/uL (3.72-5.28); RED CELL DISTRIBUTION WIDTH 15.3 % (11.5-14.0); SEGMENTED NEUTROPHILS % (AUTO) 71.2 % (42-78); TOTAL CELLS COUNTED % (AUTO) 100 %; WHITE BLOOD COUNT 11.9 10^3/uL (4.0-10.5)
[2019-08-08 05:20] LABS: APPEARANCE,URINE CLOUDY; BILIRUBIN,URINE NEGATIVE (NEGATIVE); COLOR,URINE YELLOW; GLUCOSE, URINE NEGATIVE (NEGATIVE); KETONES,URINE 80 mg/dL (NEGATIVE); LEUKOCYTE ESTERASE,URINE NEGATIVE (NEGATIVE); NITRITE,URINE NEGATIVE (NEGATIVE); PROTEIN,URINE 100 mg/dL (NEGATIVE); URINE SPECIFIC GRAVITY 1.026; UROBILINOGEN,URINE NEGATIVE mg/dL (<2.0)
[2019-08-08 05:33] LABS: ALKALINE PHOSPHATASE 68 U/L (38-126); ANION GAP 18 (5-19); ASPARTATE AMINO TRANSFERASE 21 U/L (14-36); BILIRUBIN,DIRECT 0.2 mg/dL (0.0-0.4); BILIRUBIN,TOTAL 1.3 mg/dL (0.2-1.3); BLOOD UREA NITROGEN 14 mg/dL (7-20); CALCIUM 10.3 mg/dL (8.4-10.2); CARBON DIOXIDE 26 mmol/L (22-30); CHLORIDE 96 mmol/L (98-107); GLUCOSE 97 mg/dL (75-110); POTASSIUM 3.6 mmol/L (3.6-5.0); TOTAL PROTEIN 8.1 g/dL (6.3-8.2)
[2019-08-08] MEDS ORDERED: ONDANSETRON HCL INJ/PF 4 MG/2 ML SDV IV ONE (08:52)
[2019-08-08] MEDS ORDERED: NORMAL SALINE 1000 ML 1,000 ML IV ONE ×2 (08:52→10:33)
[2019-08-08] MEDS ORDERED: FAMOTIDINE INJ/PF 20 MG/2 ML SDV IV ONE (10:33)
[2019-08-08] MEDS ORDERED: METOCLOPRAMIDE HCL INJ/PF 10 MG/2 ML SDV IV ONE (10:33)
--- NOTE | 2019-08-08 10:56 | ER Document Report ---
ED GI/ - General Chief Complaint: Vomiting Stated Complaint: VOMITTING Time Seen by Provider: 08/08/19 10:21 Notes: Patient is a 24-year-old female with a history of anxiety and depression who presents to the emergency department with a chief complaint of vomiting. Patient reports that she was seen here a few days ago and diagnosed with cyclic vomiting. Patient reports she was given a prescription for Zofran and despite taking this medication she continues to vomit every hour. Patient reports that this is been ongoing for years and occurs for 1 week at a time about every 6 to 9 months. Patient reports that she stopped taking her depression anxiety medications about 4 years ago and at that time she started smoking marijuana daily to cope. Patient reports the last time she smoked marijuana was a few days ago. Patient reports her last bowel movement was on August 05. Patient denies abdominal pain or diarrhea. Patient denies fever. Patient reports chills. TRAVEL OUTSIDE OF THE [place] IN LAST 30 DAYS: No - Related Data Allergies/Adverse Reactions: No Known Allergies Allergy (Verified 02/10/19 10:17) Home Medications: vitamins. Past Medical History - General Information source: Patient - Social History Smoking Status: Never Smoker Frequency of alcohol use: None Drug Abuse: Marijuana - Daily Lives with: Spouse/Significant other Family History: Reviewed & Not Pertinent Patient has suicidal ideation: No Patient has homicidal ideation: No - Past Medical History Cardiac Medical History: Reports: None Pulmonary Medical History: Reports: None Denies: Hx Asthma EENT Medical History: Reports: None Neurological Medical History: Reports: None Endocrine Medical History: Reports: None Renal/ Medical History: Reports: None. Denies: Hx Peritoneal Dialysis Malignancy Medical History: Reports: None GI Medical History: Reports: None Musculoskeletal Medical History: Reports None Skin Medical History: Reports None Psychiatric Medical History: Reports: Hx Anxiety, Hx Depression Traumatic Medical History: Reports: None Infectious Medical History: Reports: None - Immunizations Immunizations up to date: Yes Hx Diphtheria, Pertussis, Tetanus Vaccination: No Review of Systems - Review of Systems Constitutional: Chills EENT: No symptoms reported Cardiovascular: No symptoms reported Respiratory: No symptoms reported Gastrointestinal: See HPI Genitourinary: No symptoms reported Female Genitourinary: No symptoms reported Musculoskeletal: No symptoms reported Skin: No symptoms reported Hematologic/Lymphatic: No symptoms reported Neurological/Psychological: No symptoms reported Physical Exam - Vital signs Vitals: Temp Pulse Resp BP Pulse Ox 97.5 F 67 16 137/81 H 98 08/08/19 04:30 08/08/19 04:30 08/08/19 04:30 08/08/19 04:30 08/08/19 04:30 Interpretation: Normal - Notes Notes: GENERAL: Well-appearing, well-nourished and in no acute distress. HEAD: Atraumatic, normocephalic. EYES: Pupils equal round and reactive to light, extraocular movements intact, sclera anicteric, conjunctiva are normal. ENT: Nares patent, oropharynx clear without exudates. Moist mucous membranes. NECK: Normal range of motion, supple without lymphadenopathy or JVD. LUNGS: Breath sounds clear to auscultation bilaterally and equal. No wheezes rales or rhonchi. HEART: Regular rate and rhythm without murmurs, rubs or gallops. ABDOMEN: Soft, generally non tender with very mild suprapubic tenderness with palpation, hyperactive bowel sounds. No guarding, no rebound. No masses appreciated. BACK: No cervical, thoracic, lumbar midline tenderness. No saddle anesthesia, normal distal neurovascular exam. No CVA tenderness. GENITOURINARY: Deferred. EXTREMITIES: Normal range of motion, no pitting or edema. No clubbing or cyanosis. NEUROLOGICAL: Cranial nerves II through XII grossly intact. Normal speech, normal gait. PSYCH: Normal mood, normal affect. SKIN: Warm, Dry, normal turgor, no rashes or lesions noted. Course - Re-evaluation Re-evalutation: 08/08/19 10:55 Upon initial assessment patient is actively vomiting. Since receiving 8 mg of Zofran in first liter of fluid patient has vomited about 400-500 mL's of green gastric contents. Patient denies specific abdominal pain and reports that she has been diagnosed with cyclic vomiting in the past due to her to her marijuana consumption. Patient denies fever but does report chills. We will give Reglan, obtain a urine drug screen, urine and another liter of IV fluids. 08/08/19 12:38 After receiving the Reglan and second liter of IV fluids patient reports feeling much better. Patient reports she is actually been eating ice chips without vomiting over the past hour. Patient reports she is ready to go home. Patient requesting a prescription for Phenergan as she just had run out. Patient's vital signs are stable without a tachycardia or hypotension. Patient nontoxic- appearing and stable for discharge. - Vital Signs Vital signs: Temp Pulse Resp BP Pulse Ox 97.5 F 67 16 137/81 H 98 08/08/19 04:30 08/08/19 04:30 08/08/19 04:30 08/08/19 04:30 08/08/19 04:30 - Laboratory Result Diagrams: 08/08/19 05:01 08/08/19 05:01 Laboratory results interpreted by me: 08/08/19 08/08/19 08/08/19 05:01 05:01 05:01 WBC 11.9 H RDW 15.3 H Absolute Neuts (auto) 8.5 H Chloride 96 L Calcium 10.3 H Urine Protein 100 H Urine Ketones 80 H Urine Blood SMALL H Discharge - Discharge Clinical Impression: Cyclic vomiting syndrome Vomiting Qualifiers: Vomiting type: bilious vomiting Nausea presence: with nausea Qualified Code(s): R11.14 - Bilious vomiting Condition: Stable Disposition: HOME, SELF-CARE Additional Instructions: *Today was seen in the emergency department for uncontrolled vomiting. You have been told in the past that you will have cyclic vomiting. We have sufficiently given you IV hydration and nausea medication. You have been able to tolerate ice chips. Over the next 48 hours I would sip clear liquids and start on bland foods such as dry toast, applesauce, mashed potatoes. Please avoid aspirin, tobacco, alcohol, caffeine, NSAIDs such as ibuprofen as this can upset your stomach, and marijuana. *Please return to the emergency department if you continue vomiting despite using your Phenergan. If you develop any blood in the vomitus or stool please return emergency department immediately, if you develop fever, severe abdominal pain or any new or worsening symptoms. Nausea or Vomiting, Nonspecific Vomiting (or nausea without vomiting) can be caused by many different problems. Of course, it can mean that something's wrong with the stomach, such as "stomach flu," ulcers, or inflammation. But it can also be a symptom of a problem that has nothing to do with the stomach or intestines. Vomiting is common with severe headaches, earaches, and tonsillitis. We see it with pneumonia or heart attacks. Drugs can cause nausea. Many abdominal problems cause vomiting; for example, gallstones, kidney stones, pancreatitis, and intestinal obstruction (blocked bowels). In most cases, curing the vomiting depends on fixing the problem that caused it. For temporary relief, we may use an anti-nausea medicine. For home use, we can prescribe suppositories, chewable pills, pills that dissolve in the mouth, or liquid anti-nausea drugs. If the vomiting seems to be caused by a problem in the stomach, acid-suppressing drugs may be prescribed as well. It's important to avoid dehydration. Sip clear liquids. Take increasing amounts of fluid over the first 24 hours. Then start small amounts of bland foods (such as dry toast, applesauce, mashed potato). Avoid aspirin, tobacco, and alcohol. Gradually resume your usual diet. If the vomiting worsens, if the problem that's making you vomit worsens, or if there's evidence of bleeding in the stomach (such as black, tarry stool, bloody or black vomit, or lightheadedness), you should return immediately. Call your doctor if you aren't improved in 24 to 36 hours. Prescriptions: Promethazine HCl [Phenergan 25 mg Tablet] 1 tab PO Q6H PRN #15 tablet PRN Reason: Referrals: [facility] [place] [Provider Group] - Follow up as needed [facility] [Provider Group] - Follow up as needed
[2019-08-08 11:30] LABS: URINE AMPHETAMINES SCREEN NEGATIVE; URINE BARBITURATES SCREEN NEGATIVE; URINE BENZODIAZEPINES SCREEN NEGATIVE; URINE COCAINE SCREEN NEGATIVE; URINE MARIJUANA (THC) SCREEN UNCONFIRMED POSITIVE; URINE METHADONE SCREEN NEGATIVE; URINE PHENCYCLIDINE SCREEN NEGATIVE
[2019-08-08] MEDS ORDERED: ONDANSETRON ODT 4 MG TAB (6 TAB/ER DISP) PO PRN (12:41)
[2019-08-08 13:09] VITALS: BP 128/64
== END 2019-08-08 13:08 | disposition home or self-care (01) ==
LOC: ER 04:25
DX: R11.15 Cyclical vomiting syndrome unrelated to migraine (principal); R11.14 Bilious vomiting; F41.9 Anxiety disorder, unspecified
CPT/HCPCS: 99283; 96361; 96374; 96375; 36415; 85025; 81025; 80053; 81001; 80307; J2765; J2405; J7030; S0028

== ENCOUNTER 2019-09-01 07:35 | Day surgery (SDC) | payer BC ==
[2019-09-01] MEDS ORDERED: MIDAZOLAM 2 MG/2 ML INJ ONE (09:11)
[2019-09-01] MEDS ORDERED: LIDOCAINE 2% INJ-PF (20 MG/ML) 10 ML AMPUL ONE (09:11)
[2019-09-01] MEDS ORDERED: PROPOFOL INJ 200 MG/20 ML VIAL IV ONE (09:12)
--- NOTE | 2019-09-01 09:55 | Operative Report ---
Operative Report DATE OF SURGERY: 09/01/19 Operative Report: The risks benefits and alternatives of the procedure explained to the patient in detail and informed consent is obtained.A GIF Olympus video scope was inserted into the patient's mouth and hypopharynx, the esophagus is identified intubated and insufflated, the scope was then advanced through the esophagus stomach and duodenum, retroflexion maneuver is done, the esophagus stomach and first and second portions of the duodenum examined PREOPERATIVE DIAGNOSIS: Nausea vomiting, rule out gastric outlet obstruction POSTOPERATIVE DIAGNOSIS: Gastritis status post biopsy. Mild esophagitis OPERATION: EGD with biopsy SURGEON: DARIANA PARKS ANESTHESIA: LMAC TISSUE REMOVED OR ALTERED: As noted above COMPLICATIONS: None. ESTIMATED BLOOD LOSS: None. INTRAOPERATIVE FINDINGS: As noted above. PROCEDURE: Patient tolerated the procedure well. No immediate postprocedure complications are noted. Patient is discharged in good condition. Discharge date 09/01/2019. Discharge diet: Regular. Discharge activity: Regular. 2 to 3-week follow-up to discuss findings. Patient is instructed to call the office or proceed to the emergency room should there be any further problems or questions. Wait on the pathology.
[2019-09-01 11:18] VITALS: BP 103/65
== END 2019-09-01 10:55 | disposition home or self-care (01) ==
LOC: OROUT 07:35
PROVIDERS: ATTEND Internal Medicine Gastroenterology
DX: K29.50 Unspecified chronic gastritis without bleeding (principal); K20.9 Esophagitis, unspecified; Z87.891 Personal history of nicotine dependence
CPT/HCPCS: 43239; 81025; 88342 ×2; 88305 ×2; 00731; J2704; J3490; 731; J2250

== ENCOUNTER 2019-10-21 11:02 | Emergency (ER) | payer BC ==
[2019-10-21] MEDS ORDERED: ONDANSETRON 4 MG TAB.RAPDIS PO ONE (11:24)
--- NOTE | 2019-10-21 11:28 | ER Document Report ---
ED Medical Screen (RME) - General Chief Complaint: Vomiting Stated Complaint: VOMITING Time Seen by Provider: 10/21/19 11:20 TRAVEL OUTSIDE OF THE [place] IN LAST 30 DAYS: No - HPI Notes: 10/21/19 11:25 24-year-old female presents emergency room for complaints of vomiting for the last 4 days. Patient is also complaining of fluttering in her heart which started approximately 10 minutes prior to coming to the emergency room. patient has been seen by the medical providers in which she was given Zofran and Phenergan which is not working. Per patient's [id number], she does have multiple anxiety attacks, she has had issues with substance abuse with anxiety medication and is requesting that she not receive any at this time. Patient is not finding relief with antiemetics. Patient and [id number] with her agreement on times of anxiety and stress patient does become symptomatic with vomiting. Is requesting mental health consult along with work-up I have greeted and performed a rapid initial assessment of this patient. A comprehensive ED assessment and evaluation of the patient, analysis of test results and completion of the medical decision making process will be conducted by additional ED providers. PHYSICAL EXAMINATION: GENERAL: Well-appearing, well-nourished and in moderate distress. HEAD: Atraumatic, normocephalic. EYES: Pupils equal round extraocular movements intact, conjunctiva are normal. NECK: Normal range of motion CV: s1, s2 regular - Related Data Allergies/Adverse Reactions: No Known Allergies Allergy (Verified 10/21/19 11:20) Past Medical History - Past Medical History Cardiac Medical History: Denies: Hx Coronary Artery Disease, Hx Heart Attack, Hx Hypertension Pulmonary Medical History: Denies: Hx Asthma, Hx Bronchitis, Hx COPD, Hx Pneumonia Neurological Medical History: Denies: Hx Cerebrovascular Accident, Hx Seizures Renal/ Medical History: Denies: Hx Peritoneal Dialysis Musculoskeltal Medical History: Denies Hx Arthritis Psychiatric Medical History: Reports: Hx Anxiety, Hx Depression - Immunizations Immunizations up to date: Yes Hx Diphtheria, Pertussis, Tetanus Vaccination: No Physical Exam - Vital signs Vitals: Temp Pulse Resp BP Pulse Ox 98.1 F 88 16 136/87 H 99 10/21/19 11:15 10/21/19 11:15 10/21/19 11:15 10/21/19 11:15 10/21/19 11:15 Course - Vital Signs Vital signs: Temp Pulse Resp BP Pulse Ox 98.1 F 88 16 136/87 H 99 10/21/19 11:15 10/21/19 11:15 10/21/19 11:15 10/21/19 11:15 10/21/19 11:15
[2019-10-21 11:50] LABS: ABSOLUTE LYMPHOCYTES (AUTO) 2.4 10^3/uL (0.5-4.7); ABSOLUTE MONOCYTES (AUTO) 1.1 10^3/uL (0.1-1.4); ABSOLUTE NEUT (AUTO) 7.5 10^3/uL (1.7-8.2); BASOPHILS % (AUTO) 0.3 % (0-2); EOSINOPHILS % (AUTO) 0.1 % (0-6); HEMATOCRIT 45.5 % (36.0-47.0); HEMOGLOBIN 16.2 g/dL (12.0-15.5); LYMPHOCYTES % (AUTO) 22.1 % (13-45); MEAN CORPUSCULAR HEMOGLOBIN 29.8 pg (27.0-33.4); MEAN CORPUSCULAR HGB CONC 35.7 g/dL (32.0-36.0); MEAN CORPUSCULAR VOLUME 84 fl (80-97); MONOCYTES % (AUTO) 9.6 % (3-13); PLATELET COUNT 322 10^3/uL (150-450); RED BLOOD COUNT 5.45 10^6/uL (3.72-5.28); SEGMENTED NEUTROPHILS % (AUTO) 67.9 % (42-78); TOTAL CELLS COUNTED % (AUTO) 100 %; WHITE BLOOD COUNT 11.1 10^3/uL (4.0-10.5)
[2019-10-21 12:08] LABS: ALBUMIN 5.3 g/dL (3.5-5.0); ALKALINE PHOSPHATASE 86 U/L (38-126); ANION GAP 16 (5-19); ASPARTATE AMINO TRANSFERASE 23 U/L (14-36); BILIRUBIN,TOTAL 1.7 mg/dL (0.2-1.3); BLOOD UREA NITROGEN 15 mg/dL (7-20); CALCIUM 10.5 mg/dL (8.4-10.2); CARBON DIOXIDE 29 mmol/L (22-30); CHLORIDE 89 mmol/L (98-107); GLUCOSE 86 mg/dL (75-110); POTASSIUM 4.6 mmol/L (3.6-5.0); TOTAL PROTEIN 8.2 g/dL (6.3-8.2)
[2019-10-21] MEDS ORDERED: DEXTROSE 5%-LACTATED RINGERS 1,000 ML IV ONE ×2 (12:15→13:56)
[2019-10-21] MEDS ORDERED: DIPHENHYDRAMINE HCL 50 MG/ML VIAL IV ONE (12:15)
--- NOTE | 2019-10-21 12:18 | RADIOLOGY REPORT (SQ) ---
EXAM DESCRIPTION: CHEST 2 VIEWS COMPLETED DATE/TIME: 10/21/2019 12:06 pm REASON FOR STUDY: Palpitations, vomiting COMPARISON: None. TECHNIQUE: Frontal and lateral radiographic views of the chest acquired. NUMBER OF VIEWS: Two view. LIMITATIONS: None. FINDINGS: LUNGS AND PLEURA: No opacities, masses or pneumothorax. No pleural effusion. MEDIASTINUM AND HILAR STRUCTURES: No masses or contour abnormalities. HEART AND VASCULAR STRUCTURES: Heart normal size. No evidence for failure. BONES: No acute findings. HARDWARE: None in the chest. OTHER: No other significant finding. IMPRESSION: NO SIGNIFICANT RADIOGRAPHIC FINDING IN THE CHEST. TECHNICAL DOCUMENTATION: JOB ID: [id number] 2010 [employer]- All Rights Reserved Reading location - IP/workstation name: [email or web address]
--- NOTE | 2019-10-21 13:38 | ER Document Report ---
Entered by PATRICK CHAMBERS SCRIBE 10/21/19 1214 Acting as scribe for:SOUMYA NEWSOME MD ED GI/ <JELANI CHINO - Last Filed: 10/21/19 14:12> - General Mode of Arrival: Ambulatory Information source: Patient TRAVEL OUTSIDE OF THE [place] IN LAST 30 DAYS: No <SOUMYA NEWSOME - Last Filed: 10/21/19 16:02> - General Chief Complaint: vomitng Stated Complaint: VOMITING Time Seen by Provider: 10/21/19 11:20 Notes: This 24 year old female patient presents to the emergency department today with complaints of chronic vomiting for years. Patient states she vomits about every hour or two and sometimes just "spits up bile". Patient states that she recently had an EGD and it showed chronic inactive gastritis. Patient denies any abdominal pain but states she has "uncomfortable queasiness". Patient states that she was seen at a local urgent care on 10/17 for this and she was prescribed zofran which does not help per patient's report. Patient states she also got a shot of Phenergan which helped for a few hours. Patient denies any abdominal pain. Patient's [id number] is at bedside and he adds that this patient is incredibly anxious and she has had a problem with anxiety in the past. He states that she "always gets worried about stuff she has no control over" and this causes her to vomit. He further adds that the patient has been prescribed anxiety mediations in the past which did help her vomiting, but she began abusing this medication per [id number]. (SOUMYA NEWSOME) - Related Data Allergies/Adverse Reactions: No Known Allergies Allergy (Verified 10/21/19 11:20) Past Medical History - General Information source: Patient - Social History Smoking Status: Former Smoker Cigarette use (# per day): No Frequency of alcohol use: None Drug Abuse: Marijuana Lives with: Family Family History: Reviewed & Not Pertinent Patient has suicidal ideation: No Patient has homicidal ideation: No Psychiatric Medical History: Reports: Hx Anxiety, Hx Depression - Immunizations Immunizations up to date: Yes Hx Diphtheria, Pertussis, Tetanus Vaccination: No <SOUMYA NEWSOME - Last Filed: 10/21/19 16:02> Review of Systems - Review of Systems Constitutional: No symptoms reported EENT: No symptoms reported Cardiovascular: No symptoms reported Respiratory: No symptoms reported Gastrointestinal: See HPI, Nausea, Vomiting. denies: Abdominal pain Genitourinary: No symptoms reported Female Genitourinary: No symptoms reported Musculoskeletal: No symptoms reported Skin: No symptoms reported Hematologic/Lymphatic: No symptoms reported Neurological/Psychological: See HPI, Anxiety -: Yes All other systems reviewed and negative <SOUMYA NEWSOME - Last Filed: 10/21/19 16:02> Physical Exam <SOUMYA NEWSOME - Last Filed: 10/21/19 16:02> - Vital signs Vitals: Temp Pulse Resp BP Pulse Ox 98.1 F 88 16 136/87 H 99 10/21/19 11:15 10/21/19 11:15 10/21/19 11:15 10/21/19 11:15 10/21/19 11:15 - Notes Notes: Physical Exam: General: Alert, appears well. HEENT: Normocephalic. Atraumatic. PERRL. Extraocular movements intact. Oropharynx clear. Neck: Supple. Non-tender. Respiratory: No respiratory distress. Clear and equal breath sounds bilaterally. Cardiovascular: Regular rate and rhythm. Abdominal: Normal Inspection. Non-tender. No distension. Normal Bowel Sounds. Back: No gross abnormalities. Extremities: Moves all four extremities. Upper extremities: Normal inspection. Normal ROM. Lower extremities: Normal inspection. No edema. Normal ROM. Neurological: Normal cognition. AAOx4. Normal speech. Psychological: Appears anxious. Skin: Warm. Dry. Normal color. (SOUMYA NEWSOME) Course - Laboratory Result Diagrams: 10/21/19 11:33 10/21/19 11:33 <JELANI CHINO - Last Filed: 10/21/19 14:12> - Laboratory Result Diagrams: 10/21/19 11:33 10/21/19 11:33 - EKG Interpretation by Dc EKG shows normal: Sinus rhythm, [place], Intervals, QRS Complexes. abnormal: ST-T Waves - ST elevation, probably normal early repolarization pattern. Rate: Normal - 76 Rhythm: NSR P Waves: LAE <SOUMYA NEWSOME - Last Filed: 10/21/19 16:02> - Re-evaluation Re-evalutation: 10/21/19 16:01 Nauseousness and she was able to keep the BuSpar down. At this time she is up walking around and anxious to go home. (SOUMYA NEWSOME) - Vital Signs Vital signs: Temp Pulse Resp BP Pulse Ox 98.7 F 65 16 143/81 H 100 10/21/19 15:44 10/21/19 15:44 10/21/19 15:44 10/21/19 15:44 10/21/19 15:44 - Laboratory Laboratory results interpreted by me: 10/21/19 10/21/19 10/21/19 11:33 11:33 13:10 WBC 11.1 H RBC 5.45 H Hgb 16.2 H Sodium 134.2 L Chloride 89 L Calcium 10.5 H Total Bilirubin 1.7 H Albumin 5.3 H Urine Glucose (UA) >=500 H Urine Ketones 80 H Discharge <JELANI CHINO - Last Filed: 10/21/19 14:12> <SOUMYA NEWSOME - Last Filed: 10/21/19 16:02> - Discharge Clinical Impression: Cannabis abuse Nausea and vomiting Qualifiers: Vomiting type: unspecified Vomiting Intractability: non-intractable Qualified Code(s): R11.2 - Nausea with vomiting, unspecified Anxiety disorder Qualifiers: Anxiety disorder type: unspecified anxiety disorder Qualified Code(s): F41.9 - Anxiety disorder, unspecified Condition: Stable Disposition: HOME, SELF-CARE Additional Instructions: You have been evaluated by both medical and behavioral health teams for anxiety and have been deemed appropriate for discharge. While in the emergency department you received the following services: Medical screening and assessment, nursing services, pharmacological services, one-on-one counseling and/or psychotherapy, and environmental services. Medication recommendations have been have been provided and are as follows: Buspar 5MG, three times a day. Please take your medications as prescribed as the medication appear to have stabilized your mood and overall mental health. Please do not stop these medications without discussing with your prescribing physician. You have been provided with an outpatient mental health resource list with the contact information for mobile crisis highlighted. You are highly encouraged to follow up with your appointment at [facility] on Friday. Anxiety The physician feels that some of your health problems are being caused by anxiety. Anxiety affects your health in many ways. Anxiety alone can cause palpitations, sweats, chest pains, abdominal pains, shortness of breath, and headaches. It contributes to ulcer disease, high blood pressure, irritable bowel syndrome, and has been shown to cause flare-ups of many other diseases. Anxiety is not a simple disorder to treat. If the anxiety is due to recent life stresses, you may simply need time to "work through" the changes. If the anxiety is due to an underlying unhappiness with yourself or due to psychiatric disturbance, professional help will be needed. Your physician can refer you for further help if needed. Anti-anxiety medication is occasionally given if the stress is acute or if you are having trouble sleeping. Chronic or frequent use of these medications is not a good idea because the body becomes reliant on it, preventing you from dealing with life's normal stresses. AT ANY TIME, IF YOUR SYMPTOMS CHANGE SIGNIFICANTLY OR WORSEN OR YOU DEVELOP NEW SYMPTOMS, RETURN TO THE EMERGENCY DEPARTMENT IMMEDIATELY FOR RE-EVALUATION. Take the Reglan as prescribed to help control your nauseousness. Drink plenty of cool clear liquids. Take the BuSpar as prescribed. Follow-up with [facility] Friday as scheduled. RETURN TO THE EMERGENCY ROOM IF ANY NEW OR WORSENING SYMPTOMS. Prescriptions: Buspirone HCl [Buspar 10 mg Tablet] 5 mg PO TID #15 dose Metoclopramide HCl [Reglan 10 mg Tablet] 10 mg PO ASDIR PRN #15 tablet PRN Reason: I personally performed the services described in the documentation, reviewed and edited the documentation which was dictated to the scribe in my presence, and it accurately records my words and actions.
[2019-10-21] MEDS ORDERED: BUSPIRONE HCL 10 MG TABLET PO ONE (13:39)
[2019-10-21 13:44] LABS: APPEARANCE,URINE CLEAR; BILIRUBIN,URINE NEGATIVE (NEGATIVE); COLOR,URINE YELLOW; GLUCOSE, URINE >=500 mg/dL (NEGATIVE); KETONES,URINE 80 mg/dL (NEGATIVE); LEUKOCYTE ESTERASE,URINE NEGATIVE (NEGATIVE); NITRITE,URINE NEGATIVE (NEGATIVE); PROTEIN,URINE NEGATIVE (NEGATIVE); URINE SPECIFIC GRAVITY 1.009; UROBILINOGEN,URINE NEGATIVE mg/dL (<2.0)
[2019-10-21] MEDS ORDERED: METOCLOPRAMIDE HCL INJ/PF 10 MG/2 ML SDV IV ONE (13:56)
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
[2019-10-21 15:46] VITALS: BP 143/81
--- NOTE | 2019-10-21 15:53 | EKG REPORT ---
SEVERITY:- BORDERLINE ECG - SINUS RHYTHM PROBABLE LEFT ATRIAL ABNORMALITY ST ELEV, PROBABLE NORMAL EARLY REPOL PATTERN : Confirmed by: Ale Manning MD 21-Oct-2019 15:52:51
== END 2019-10-21 16:09 | disposition home or self-care (01) ==
LOC: ER 11:02
DX: R11.2 Nausea with vomiting, unspecified (principal); F41.9 Anxiety disorder, unspecified; F12.10 Cannabis abuse, uncomplicated; Z79.899 Other long term (current) drug therapy; Z87.891 Personal history of nicotine dependence
CPT/HCPCS: 93005; 99284; 96361; 96374; 96375; 36415; 83690; 85025; 81025; 80053; 81001; 84484; 71046; 93010; J1200; S0119; J2765; J7121

== ENCOUNTER → 2019-11-10 | Outpatient (CLI) | payer BC ==
--- NOTE | 2019-11-10 09:39 | RADIOLOGY REPORT (SQ) ---
EXAM DESCRIPTION: U/S ABDOMEN LIMITED W/O DOP IMAGES COMPLETED DATE/TIME: 11/10/2019 9:23 am REASON FOR STUDY: BILIOUS VOMITING WITH NAUSEA (R11.14) R11.14 BILIOUS VOMITING COMPARISON: None. TECHNIQUE: Dynamic and static grayscale images acquired of the abdomen and recorded on PACS. Additio nal selected color Doppler and spectral images recorded. LIMITATIONS: None. FINDINGS: PANCREAS: No masses. Visualized pancreatic duct normal caliber. LIVER: No masses. Echotexture normal. LIVER VASCULATURE: Normal directional flow of the main portal vein and hepatic veins. GALLBLADDER: No stones. Normal wall thickness. No pericholecystic fluid. ULTRASOUND-DETECTED HERNANDEZ'S SIGN: Negative. INTRAHEPATIC DUCTS AND COMMON DUCT: CBD and intrahepatic ducts normal caliber. No filling defects. AORTA: No aneurysm. RIGHT KIDNEY: Normal size. Normal echogenicity. No solid or suspicious masses. No hydronephrosis. No calcifications. PERITONEAL AND RIGHT PLEURAL SPACE: No ascites or effusions. OTHER: No other significant findings. IMPRESSION: NORMAL RIGHT UPPER QUADRANT ULTRASOUND. TECHNICAL DOCUMENTATION: JOB ID: [id number] 2010 [employer]- All Rights Reserved Reading location - IP/workstation name: [email or web address]
--- NOTE | 2019-11-10 12:20 | RADIOLOGY REPORT (SQ) ---
EXAM DESCRIPTION: NM HIDA SCAN WITH CCK IMAGES COMPLETED DATE/TIME: 11/10/2019 12:05 pm REASON FOR STUDY: BILIOUS VOMITING WITH NAUSEA (R11.14) R11.14 BILIOUS VOMITING COMPARISON: Abdominal ultrasound done earlier the same day. RADIONUCLIDE AND DOSE: DOSAGE RADIONUCLIDE: 5.48 millicuries Tc99m Mebrofenin. DOSAGE CCK: 1.1 micrograms. DOSAGE MORPHINE: Not required. The route of agent administration: Intravenous TECHNIQUE: Serial imaging right upper quadrant up to 60 minutes following injection of radionuclide. CCK injected after gallbladder visualized. LIMITATIONS: None. FINDINGS: LIVER: Normal visualization without areas of photopenia. INTRAHEPATIC BILE DUCTS: Normal size and no delay in visualization. COMMON BILE DUCT: Normal without dilatation. GALLBLADDER: Normal visualization. Calculated ejection fraction of 42%. Normal range is greater th an 35%. PHYSICAL RESPONSE: Patients presenting complaint was reproduced. OTHER: No other significant finding. IMPRESSION: NORMAL STUDY WITHOUT CYSTIC OR COMMON DUCT OBSTRUCTION. NORMAL GALLBLADDER EJECTION FRA CTION. NO EVIDENCE FOR BILIARY DYSKINESIS. TECHNICAL DOCUMENTATION: JOB ID: [id number] [employer]- All Rights Reserved Reading location - IP/workstation name: [email or web address]
== END ==
LOC: RAD 08:09
PROVIDERS: ATTEND Internal Medicine Gastroenterology
DX: R11.14 Bilious vomiting (principal)
CPT/HCPCS: 36415; 84703; 76705; 78227; J2805; A9537; Q9969

== ENCOUNTER 2019-12-02 08:03 | Emergency (ER) | payer BC ==
[2019-12-02 08:42] LABS: ABSOLUTE LYMPHOCYTES (AUTO) 1.3 10^3/uL (0.5-4.7); ABSOLUTE MONOCYTES (AUTO) 0.2 10^3/uL (0.1-1.4); ABSOLUTE NEUT (AUTO) 10.9 10^3/uL (1.7-8.2); BASOPHILS % (AUTO) 0.3 % (0-2); EOSINOPHILS % (AUTO) 0.3 % (0-6); HEMATOCRIT 41.4 % (36.0-47.0); HEMOGLOBIN 14.4 g/dL (12.0-15.5); LYMPHOCYTES % (AUTO) 10.2 % (13-45); MEAN CORPUSCULAR HEMOGLOBIN 30.1 pg (27.0-33.4); MEAN CORPUSCULAR HGB CONC 34.8 g/dL (32.0-36.0); MEAN CORPUSCULAR VOLUME 87 fl (80-97); MONOCYTES % (AUTO) 1.9 % (3-13); PLATELET COUNT 303 10^3/uL (150-450); RED BLOOD COUNT 4.78 10^6/uL (3.72-5.28); RED CELL DISTRIBUTION WIDTH 14.3 % (11.5-14.0); SEGMENTED NEUTROPHILS % (AUTO) 87.3 % (42-78); TOTAL CELLS COUNTED % (AUTO) 100 %; WHITE BLOOD COUNT 12.5 10^3/uL (4.0-10.5)
[2019-12-02] MEDS ORDERED: NORMAL SALINE 1000 ML 1,000 ML IV ONE (08:48)
[2019-12-02] MEDS ORDERED: ONDANSETRON HCL INJ/PF 4 MG/2 ML SDV IV ONE (08:50)
--- NOTE | 2019-12-02 08:55 | ER Document Report ---
ED GI/ - General Chief Complaint: Abdominal Pain Stated Complaint: ABDOMINAL PAIN Time Seen by Provider: 12/02/19 08:28 Primary Care Provider: DARIANA PARKS MD [Primary Care Provider] - Follow up as needed Notes: Patient presents with nausea vomiting diarrhea that started today. Patient reports vomiting x6 episodes with diarrhea x2 episodes. Patient denies any fever or urinary symptoms. Patient denies any vaginal discharge or concern about STI. Patient states that she has had problems with vomiting in the past that other providers have told her was attributed to marijuana use. Patient does acknowledge smoking marijuana daily. Patient states that she had a HIDA scan which demonstrated an ejection fraction of 42%. TRAVEL OUTSIDE OF THE [place] IN LAST 30 DAYS: No - HPI Patient complains to provider of: Diarrhea, Pelvic pain, Vomiting. No: Vaginal discharge Onset: This morning Timing/Duration: Persistent Quality of pain: Cramping Location: Pelvis Vaginal bleeding (Compared to normal period): None Menstrual period history: denies: Associated symptoms: Diarrhea, Nausea, Vomiting. denies: Urinary hesitancy, Urinary frequency, Urinary retention, Urinary urgency Exacerbated by: Denies Relieved by: Denies Similar symptoms previously: Yes Recently seen / treated by doctor: No - Related Data Allergies/Adverse Reactions: No Known Allergies Allergy (Verified 10/21/19 11:20) Past Medical History - General Information source: Patient - Social History Smoking Status: Never Smoker Frequency of alcohol use: None Drug Abuse: Marijuana - Daily Occupation: [employer] Lives with: Family Family History: Reviewed & Not Pertinent - Past Medical History Cardiac Medical History: Denies: Hx Coronary Artery Disease, Hx Heart Attack, Hx Hypertension Neurological Medical History: Denies: Hx Cerebrovascular Accident, Hx Seizures Renal/ Medical History: Denies: Hx Peritoneal Dialysis Musculoskeletal Medical History: Denies Hx Arthritis Psychiatric Medical History: Reports: Hx Anxiety, Hx Depression Surgical Hx: Negative - Immunizations Immunizations up to date: Yes Hx Diphtheria, Pertussis, Tetanus Vaccination: No Review of Systems - Review of Systems Constitutional: No symptoms reported. denies: Fever EENT: No symptoms reported Cardiovascular: No symptoms reported. denies: Dizziness Respiratory: No symptoms reported. denies: Cough, Short of breath Gastrointestinal: Abdominal pain, Diarrhea, Nausea, Vomiting Genitourinary: No symptoms reported. denies: Dysuria Female Genitourinary: No symptoms reported. denies: , Vaginal discharge Musculoskeletal: No symptoms reported. denies: Back pain Skin: No symptoms reported Hematologic/Lymphatic: No symptoms reported Neurological/Psychological: No symptoms reported Physical Exam - Vital signs Vitals: Temp Pulse Resp BP Pulse Ox 97.7 F 111 H 18 126/95 H 96 12/02/19 08:06 12/02/19 08:06 12/02/19 08:06 12/02/19 08:06 12/02/19 08:06 - General General appearance: Appears well, Alert In distress: None - HEENT Head: Normocephalic, Atraumatic Eyes: Normal Conjunctiva: Normal Nasal: Normal Mouth/Lips: Normal Mucous membranes: Normal Neck: Normal, Supple - Respiratory Respiratory status: No respiratory distress Chest status: Nontender Breath sounds: Normal. No: Rales, Rhonchi, Stridor, Wheezing Chest palpation: Normal - Cardiovascular Rhythm: Tachycardia Heart sounds: S1 appreciated, S2 appreciated Murmur: No - Abdominal Inspection: Normal Distension: No distension Bowel sounds: Normal Tenderness: Tender - Lower pelvic Organomegaly: No organomegaly - Back Back: Normal, Nontender. No: CVA tenderness - Extremities General upper extremity: Normal inspection, Nontender, Normal ROM General lower extremity: Normal inspection, Nontender, Normal ROM - Neurological Neuro grossly intact: Yes Cognition: Normal [place] Coma Scale Eye Opening: Spontaneous [place] Coma Scale Verbal: Oriented [place] Coma Scale Motor: Obeys Commands [place] Coma Scale Total: 15 - Psychological Associated symptoms: Normal affect, Normal mood - Skin Skin Temperature: Warm Skin Moisture: Dry Skin Color: Pale Course - Re-evaluation Re-evalutation: 12/02/19 10:04 Patient resting in a darkened room. Patient reports that she is still nauseous and has vomited once despite receiving the Zofran medication. Patient denies any additional diarrhea episodes. Patient reports abdominal tenderness is improved at this time. Abdomen soft without any guarding. 12/02/19 11:16 Patient resting with eyes closed, arouses easily to voice. Patient reports nausea is resolved. Abdomen soft continues nontender at this time. Patient feels as though she can manage her symptoms at home. P.o. challenge was provided. - Vital Signs Vital signs: Temp Pulse Resp BP Pulse Ox 97.7 F 111 H 18 126/95 H 96 12/02/19 08:52 12/02/19 08:06 12/02/19 08:06 12/02/19 08:06 12/02/19 08:06 - Laboratory Result Diagrams: 12/02/19 08:30 12/02/19 08:30 Laboratory results interpreted by me: 12/02/19 12/02/19 12/02/19 08:30 08:30 09:40 WBC 12.5 H RDW 14.3 H Lymph % (Auto) 10.2 L Millard % (Auto) 1.9 L Absolute Neuts (auto) 10.9 H Seg Neutrophils % 87.3 H Sodium 135.0 L Creatinine 0.51 L Glucose 176 H Urine Protein 100 H Urine Ketones 80 H Urine Ascorbic Acid 40 H Discharge - Discharge Clinical Impression: Cannabis abuse, Nausea vomiting and diarrhea Condition: Stable Disposition: HOME, SELF-CARE Additional Instructions: Return immediately for any new or worsening symptoms Followup with your primary care provider, call tomorrow to make a followup appointment Avoid use of marijuana as this can worsen abdominal pain, nausea vomiting symptoms Increase fluids and stay well-hydrated You may take Imodium [id number]-[id number] as directed to help with diarrhea symptoms VOMITING: Vomiting (or nausea without vomiting) can be caused by many other different problems. It can mean that something's wrong with the stomach, such as ulcers or inflammation or the intestinal tract, such as appendicitis. But it can also be a symptom of a problem that has nothing to do with the stomach or intestines. V omiting is common with severe headaches, earaches, tonsillitis, and kidney infections, etc. We see it with pneumonia or heart attacks. Drugs can cause nausea and vomiting. Many abdominal problems cause vomiting; for example, gallstones, kidney stones, pancreatitis, and intestinal obstruction (blocked bowels). In most cases, curing the vomiting depends on fixing the problem that caused it. For temporary relief, we may use an anti-nausea medicine. For home use, we can prescribe suppositories, chewable pills, pills that dissolve in the mouth, or liquid anti-nausea drugs. If the vomiting seems to be caused by a problem in the stomach, acid-suppressing drugs may be prescribed as well. It's important to avoid dehydration. Sip small amounts of clear liquids (soft drinks, tea, broth, etc) . Try to take fluids frequently even if you are vomiting to prevent dehydration. Take increasing amounts of fluid and when liquids are being consumed successfully, advance to small amounts of bland food (toast, soups, mashed potatoes, etc.) until you are able to resume a regular diet. Avoid aspirin, tobacco, and alcohol. If the vomiting worsens, if the problem that's making you vomit worsens, or if there's evidence of bleeding in the stomach (such as black, tarry stool, or bloody or black vomit), you should return immediately. Also, return if abdominal pain worsens or becomes localized to one area or you develop high fever. Call your doctor if you aren't improved in 24 hours. DIARRHEA, NON-SPECIFIC: Diarrhea means frequent, watery stools. There are many causes. Any problem that keeps the intestinal tract from absorbing water from the stool can lead to diarrhea. A sudden new diarrhea problem is usually caused by a virus, food sensitivity, toxic bacteria, or drugs. In this case, we expect the problem to go away soon. Testing is done only if you seem seriously ill from the diarrhea. If you have chronic diarrhea, or diarrhea that keeps coming back, we need to find out why. Chronic diarrhea can be due to inflammation of the bowels such as Crohn's disease or ulcerative colitis, food sensitivity such as intolerance to lactose or wheat protein, irritable bowel syndrome, and other problems. If your diarrhea is a significant problem but it's not clear why you have it, we'll refer you to a specialist for further testing. During an episode of diarrhea, drink small amounts (two to six ounces) of clear liquids (soft drinks, sport drinks, herb teas, broth, etc). Take fluids frequently to prevent dehydration. It's usually not a problem to take mild anti- diarrhea medication such as Kaopectate or Pepto-Bismol. As the diarrhea eases, advance to small amounts of bland food (mashed potato, toast) for 24 hours. Call the physician if blood appears in your vomit or stool, if vomiting lasts longer than 24 hours, if the abdominal pain worsens or becomes localized to one area, if you develop high fever, or if you become lightheaded and weak. INTRAVENOUS (I V) FLUIDS: As part of your care today, you received intravenous (IV) fluids. IV fluid s are administered to patients who are dehydrated or to those who have certain chemical (electrolyte) abnormalities that need correcting. ANTINAUSEA MEDICATION: You have been given a medication to suppress nausea and vomiting. This type of medication can be given as a shot, pill, or suppository. It will usually last for many hours. Pills and shots usually last six to eight hours. For the typical illness, only one or two doses of the medication may be necessary. Mild lightheadedness may occur. This type of medicine can cause drowsiness. Do not drive or operate dangerous machinery while under its influence. Do not mix with alcohol. See your doctor at once if you have muscle spasms or tightness, or uncontrollable motions (particularly of the neck, mouth, or jaw). Persistent vomiting or severe lightheadedness should also be evaluated by the physician. FOLLOW-UP CARE: If you have been referred to a physician for follow-up care, call the physicians office for an appointment as you were instructed or within the next two days. If you experience worsening or a significant change in your symptoms, notify the physician immediately or return to the Emergency Department at any time for re-evaluation. Prescriptions: Promethazine HCl [Phenergan 25 mg Tablet] 25 mg PO Q6H PRN #10 tablet PRN Reason: Referrals: DARIANA PARKS MD [Primary Care Provider] - Follow up as needed
[2019-12-02 09:10] LABS: ALBUMIN 4.3 g/dL (3.5-5.0); ALKALINE PHOSPHATASE 81 U/L (38-126); ANION GAP 9 (5-19); ASPARTATE AMINO TRANSFERASE 18 U/L (14-36); BILIRUBIN,TOTAL 0.8 mg/dL (0.2-1.3); BLOOD UREA NITROGEN 10 mg/dL (7-20); CALCIUM 9.9 mg/dL (8.4-10.2); CARBON DIOXIDE 23 mmol/L (22-30); CHLORIDE 103 mmol/L (98-107); GLUCOSE 176 mg/dL (75-110); POTASSIUM 4.3 mmol/L (3.6-5.0)
[2019-12-02] MEDS ORDERED: DIPHENHYDRAMINE HCL 50 MG/ML VIAL IV ONE (10:03)
[2019-12-02] MEDS ORDERED: PROCHLORPERAZINE EDISYLATE INJ 10 MG/2 ML VIAL IV ONE (10:03)
[2019-12-02] MEDS ORDERED: FAMOTIDINE INJ/PF 20 MG/2 ML SDV IV ONE (10:04)
[2019-12-02 10:25] LABS: APPEARANCE,URINE SLIGHTLY-CLOUDY; BILIRUBIN,URINE NEGATIVE (NEGATIVE); COLOR,URINE YELLOW; GLUCOSE, URINE NEGATIVE (NEGATIVE); KETONES,URINE 80 mg/dL (NEGATIVE); LEUKOCYTE ESTERASE,URINE NEGATIVE (NEGATIVE); NITRITE,URINE NEGATIVE (NEGATIVE); PROTEIN,URINE 100 mg/dL (NEGATIVE); URINE SPECIFIC GRAVITY 1.024; UROBILINOGEN,URINE NEGATIVE mg/dL (<2.0)
[2019-12-02 10:38] LABS: URINE AMPHETAMINES SCREEN NEGATIVE; URINE BARBITURATES SCREEN NEGATIVE; URINE BENZODIAZEPINES SCREEN NEGATIVE; URINE COCAINE SCREEN NEGATIVE; URINE METHADONE SCREEN NEGATIVE; URINE PHENCYCLIDINE SCREEN NEGATIVE
[2019-12-02 10:40] LABS: URINE MARIJUANA (THC) SCREEN UNCONFIRMED POSITIVE
[2019-12-02 11:27] VITALS: BP 105/55
[2019-12-02 11:47] LABS: CHLAM PCR NOT DETECTED (NOT DETECT)
== END 2019-12-02 11:36 | disposition home or self-care (01) ==
LOC: ER 08:03
DX: F12.90 Cannabis use, unspecified, uncomplicated (principal); R11.2 Nausea with vomiting, unspecified; R19.7 Diarrhea, unspecified; R10.9 Unspecified abdominal pain
CPT/HCPCS: 99284; 96361; 96374; 96375; 36415; 83690; 84703; 85025; 80053; 81001; 80307; 87491; 87591; J1200; J0780; J2405; J7030; S0028

== ENCOUNTER 2019-12-08 08:23 | Emergency (ER) | payer BC ==
[2019-12-08] MEDS ORDERED: NORMAL SALINE 1000 ML 1,000 ML IV ONE (08:51)
[2019-12-08] MEDS ORDERED: METOCLOPRAMIDE HCL INJ/PF 10 MG/2 ML SDV IV ONE (08:52)
[2019-12-08] MEDS ORDERED: DICYCLOMINE HCL INJ 20 MG/2 ML AMPULE IM ONE (08:53)
[2019-12-08] MEDS ORDERED: CAPSAICIN 0.025% CREAM 60 GM TP ONE (08:53)
--- NOTE | 2019-12-08 09:00 | ER Document Report ---
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 Reports some lower abdominal cramping but no definitive abdominal pain no fever. Her menstrual cycles are regular she does not know if she might be . ROS: See HPI - all other systems were reviewed and are otherwise negative Constitutional: no fever Eyes: no drainage, no blurred vision ENT: no runny nose, no sore throat Cardiovascular: no chest pain Resp: no SOB, no cough GI: + vomiting, no diarrhea, + abdominal cramping : no dysuria Integumentary: no rash Allergy: no hives Musculoskeletal: no extremity pain or swelling Neurological: no numbness/tingling, no weakness MEDICATIONS: I agree with the patient medications as charted by the RN. ALLERGIES: I agree with the allergies as charted by the RN. PAST MEDICAL HISTORY/PAST SURGICAL HISTORY: Reviewed and agree as charted by RN. SOCIAL HISTORY: Reviewed and agree as charted by RN. FAMILY HISTORY: No significant familial comorbid conditions directly related to patient complaint EXAM: Reviewed vital signs as charted by RN. CONSTITUTIONAL: Alert and oriented and responds appropriately to questions. Well-appearing; well-nourished, mild distress secondary to nausea HEAD: Normocephalic; atraumatic EYES: PERRL; Conjunctivae clear, sclerae non-icteric ENT: normal nose; no rhinorrhea; moist mucous membranes; pharynx without lesions noted, no uvula edema or deviation, no tonsillar hypertrophy, phonation normal NECK: Supple without meningismus; non-tender; no cervical lymphadenopathy, no masses CARD: RRR; no murmurs, no clicks, no rubs, no gallops; symmetric distal pulses RESP: Normal chest excursion without splinting or tachypnea; breath sounds clear and equal bilaterally; no wheezes, no rhonchi, no rales, pulse oximetry ABD/GI: Normal bowel sounds; non-distended; soft, non-tender, no rebound, no guarding; no palpable organomegaly or masses. BACK: The back appears normal and is non-tender to palpation, there is no CVA tenderness EXT: Normal ROM in all joints; non-tender to palpation; no cyanosis, no effusions, no edema SKIN: Normal color for age and race; warm; dry; good turgor; no acute lesions noted NEURO: Moves all extremities equally; Motor and sensory function intact PSYCH: The patient's mood and manner are tearful. Grooming and personal hygiene are appropriate. MDM: 24-year-old female cyclic vomiting, chronic marijuana use. 5 days of vomiting. States Reglan seems to work better for her than Phenergan or Zofran. Will also use Bentyl, capsaicin cream, check screening labs including . She has no abdominal pain on palpation. Patient having a difficult time believing that her chronic daily use of marijuana may be causing her symptoms TRAVEL OUTSIDE OF THE [place] IN LAST 30 DAYS: No - Related Data Allergies/Adverse Reactions: No Known Allergies Allergy (Verified 10/21/19 11:20) Past Medical History - Social History Smoking Status: Former Smoker Chew tobacco use (# tins/day): No Frequency of alcohol use: None Drug Abuse: Marijuana Family History: Reviewed & Not Pertinent Patient has homicidal ideation: No - Past Medical History Cardiac Medical History: Denies: Hx Coronary Artery Disease, Hx Heart Attack, Hx Hypertension Neurological Medical History: Denies: Hx Cerebrovascular Accident, Hx Seizures Renal/ Medical History: Denies: Hx Peritoneal Dialysis Musculoskeletal Medical History: Denies Hx Arthritis Psychiatric Medical History: Reports: Hx Anxiety, Hx Depression - Immunizations Immunizations up to date: Yes Hx Diphtheria, Pertussis, Tetanus Vaccination: No Physical Exam - Vital signs Vitals: Temp 97.8 F 12/08/19 08:23 Course - Re-evaluation Re-evalutation: 12/08/19 10:28 Patient states she feels only slightly better. Not having active vomiting at this time her lab work does not show acute emergent abnormalities she is positive for marijuana. She is requesting to go home at this time she does not want further treatment. Discussed this at length with her she reiterates that she is already called her to come pick her up. I will write the patient a prescription for Reglan so that she will have something for nausea at home she was advised to stop using marijuana which she verbalizes understanding of - Vital Signs Vital signs: Temp Pulse Resp BP Pulse Ox 97.9 F 60 18 136/86 H 100 12/08/19 08:42 12/08/19 08:42 12/08/19 08:42 12/08/19 08:42 12/08/19 08:42 - Laboratory Result Diagrams: 12/08/19 09:00 12/08/19 09:00 Laboratory results interpreted by me: 12/08/19 12/08/19 12/08/19 09:00 09:00 09:00 RDW 14.4 H Sodium 134.2 L Creatinine 0.51 L Glucose 112 H Urine Ketones TRACE H Ur Leukocyte Esterase SMALL H Urine Ascorbic Acid 20 H Discharge - Discharge Clinical Impression: Cyclic vomiting syndrome, Marijuana use Condition: Stable Disposition: HOME, SELF-CARE Additional Instructions: Stop marijuana use. Take Reglan for nausea or vomiting. Follow-up with a primary care provider for reevaluation of symptoms call for appointment, return for worsening symptoms or persistent vomiting Prescriptions: Metoclopramide HCl [Reglan 10 mg Tablet] 1 tab PO Q6H PRN #24 tablet PRN Reason: Referrals: DARIANA PARKS MD [ACTIVE STAFF] - Follow up as needed TEJA BESS MD [ACTIVE STAFF] - Follow up as needed
[2019-12-08 09:17] LABS: ABSOLUTE LYMPHOCYTES (AUTO) 1.7 10^3/uL (0.5-4.7); ABSOLUTE MONOCYTES (AUTO) 0.6 10^3/uL (0.1-1.4); ABSOLUTE NEUT (AUTO) 7.4 10^3/uL (1.7-8.2); BASOPHILS % (AUTO) 0.5 % (0-2); EOSINOPHILS % (AUTO) 0.1 % (0-6); HEMATOCRIT 40.9 % (36.0-47.0); HEMOGLOBIN 14.5 g/dL (12.0-15.5); LYMPHOCYTES % (AUTO) 17.6 % (13-45); MEAN CORPUSCULAR HEMOGLOBIN 30.5 pg (27.0-33.4); MEAN CORPUSCULAR HGB CONC 35.4 g/dL (32.0-36.0); MEAN CORPUSCULAR VOLUME 86 fl (80-97); MONOCYTES % (AUTO) 5.9 % (3-13); PLATELET COUNT 294 10^3/uL (150-450); RED BLOOD COUNT 4.75 10^6/uL (3.72-5.28); RED CELL DISTRIBUTION WIDTH 14.4 % (11.5-14.0); SEGMENTED NEUTROPHILS % (AUTO) 75.9 % (42-78); TOTAL CELLS COUNTED % (AUTO) 100 %; WHITE BLOOD COUNT 9.8 10^3/uL (4.0-10.5)
[2019-12-08 09:23] LABS: APPEARANCE,URINE CLEAR; BILIRUBIN,URINE NEGATIVE (NEGATIVE); COLOR,URINE YELLOW; GLUCOSE, URINE NEGATIVE (NEGATIVE); KETONES,URINE TRACE mg/dL (NEGATIVE); LEUKOCYTE ESTERASE,URINE SMALL (NEGATIVE); NITRITE,URINE NEGATIVE (NEGATIVE); PROTEIN,URINE NEGATIVE (NEGATIVE); URINE SPECIFIC GRAVITY 1.011; UROBILINOGEN,URINE NEGATIVE mg/dL (<2.0)
[2019-12-08 09:33] LABS: ALBUMIN 4.6 g/dL (3.5-5.0); ALKALINE PHOSPHATASE 64 U/L (38-126); ANION GAP 9 (5-19); ASPARTATE AMINO TRANSFERASE 15 U/L (14-36); BILIRUBIN,TOTAL 0.9 mg/dL (0.2-1.3); BLOOD UREA NITROGEN 7 mg/dL (7-20); CARBON DIOXIDE 25 mmol/L (22-30); CHLORIDE 100 mmol/L (98-107); GLUCOSE 112 mg/dL (75-110); POTASSIUM 3.8 mmol/L (3.6-5.0); TOTAL PROTEIN 7.3 g/dL (6.3-8.2)
[2019-12-08 09:40] LABS: URINE AMPHETAMINES SCREEN NEGATIVE; URINE BARBITURATES SCREEN NEGATIVE; URINE BENZODIAZEPINES SCREEN NEGATIVE; URINE COCAINE SCREEN NEGATIVE; URINE MARIJUANA (THC) SCREEN UNCONFIRMED POSITIVE; URINE METHADONE SCREEN NEGATIVE; URINE PHENCYCLIDINE SCREEN NEGATIVE
[2019-12-08 11:10] VITALS: BP 141/84
== END 2019-12-08 10:41 | disposition home or self-care (01) ==
LOC: ER 08:23
DX: R11.15 Cyclical vomiting syndrome unrelated to migraine (principal); F12.90 Cannabis use, unspecified, uncomplicated
CPT/HCPCS: 99284; 96372; 96361; 96374; 36415; 83690; 85025; 81025; 80053; 81001; 80307; J0500; J3490; J2765; J7030